=== PATIENT | female | born 1955 | race Caucasian/White ===

== ENCOUNTER 2017-08-15 19:41 | Inpatient (IN) | payer OTHER ==
[~2017-08-15] VITALS: Ht 180.3 cm; Wt 72.6 kg
[2017-08-15 20:12] VITALS: BP 161/100; PULSE 94; RESP 16; TEMP 98; O2SAT 97
[2017-08-15 22:04] LABS: AUTOMATED NEUTROPHIL # 5.9 TH/MM3 (1.8-7.7); BASOPHIL % 0.4 % (0.0-2.0); EOSINOPHIL # 0.2 TH/MM3 (0-0.4); EOSINOPHIL % 2.1 % (0.0-4.0); HEMATOCRIT 41.8 % (35.0-46.0); HEMOGLOBIN 14.1 GM/DL (11.6-15.3); LYMPH % 35.1 % (9.0-44.0); LYMPHOCYTE # 3.8 TH/MM3 (1.0-4.8); MEAN CELL VOLUME 87.6 FL (80.0-100.0); MEAN CORPUSCULAR HEMOGLOBIN 29.6 PG (27.0-34.0); MEAN CORPUSCULAR HGB CONC 33.8 % (32.0-36.0); MEAN PLATELET VOLUME 7.2 FL (7.0-11.0); MONO % 8.1 % (0.0-8.0); MONOCYTE # 0.9 TH/MM3 (0-0.9); NEUT % 54.3 % (16.0-70.0); PLATELET COUNT 302 TH/MM3 (150-450); RED BLOOD COUNT 4.77 MIL/MM3 (4.00-5.30); RED CELL DISTRIBUTION WIDTH 13.7 % (11.6-17.2); WHITE BLOOD COUNT 10.8 TH/MM3 (4.0-11.0)
[2017-08-15] MEDS ORDERED: IRBE300T46 PO (22:13)
[2017-08-15] MEDS ORDERED: VITA2000 PO (22:13)
[2017-08-15] MEDS ORDERED: ALPR.25 PO (22:13)
[2017-08-15] MEDS ORDERED: CARV12.5 PO (22:13)
[2017-08-15] MEDS ORDERED: LIPI20TA PO (22:13)
[2017-08-15] MEDS ORDERED: PRIL20TA2 PO (22:13)
[2017-08-15] MEDS ORDERED: ESTR1.25 PO (22:13)
--- NOTE | 2017-08-15 22:15 | RADRPT ---
EXAM DATE: 08/15/2017 9:53 PM EDT AGE/SEX: 62 years / Female INDICATIONS: Light sensitivity. CLINICAL DATA: This is the patient's initial encounter. Patient reports that signs and symptoms have been present for 1 day and indicates a pain score of 5/10. MEDICAL/SURGICAL HISTORY: Hypertension. . RADIATION DOSE: 37.63 CTDI (mGy) COMPARISON: No prior exams available for comparison. TECHNIQUE: CT of the head without contrast. Using automated exposure control and adjustment of the mA and/or kV according to patient size, radiation dose was kept as low as reasonably achievable to ob tain optimal diagnostic quality images. FINDINGS: Cerebrum: The ventricles are normal for age. No evidence of midline shift, mass lesion, hemorrhage or acute infarction. No extraaxial fluid collections are seen. Posterior Fossa: The cerebellum and brainstem are intact. The 4th ventricle is midline. The cerebe llopontine angle is unremarkable. Extracranial: The visualized portion of the orbits is intact. Skull: The calvaria is intact. No evidence of skull fracture. CONCLUSION: 1. No acute intracranial abnormalities. Electronically signed by: Joseluis Rivera MD 08/15/2017 10:14 PM EDT
[2017-08-15 22:18] LABS: PROTHROMBIN TIME - PATIENT 10.4 SEC (9.8-11.6)
[2017-08-15 22:21] VITALS: BP 131/82; PULSE 87; RESP 20; O2SAT 98
--- NOTE | 2017-08-15 22:21 | PD ---
HPI Chief Complaint: Neuro Symptoms/ Deficits Time Seen by Provider: 21:21 Travel History International Travel<30 days: No Contact w/Intl Traveler<30days: No Traveled to known affect area: No History of Present Illness HPI 62-year-old female presents the emergency department with vision loss. She states her symptoms began 2 weeks ago as flashes and floaters she made an appointment with her eye doctor and was seen today. He is concerned that she may have had a stroke because she has a unilateral visual field cut on the left and could not see anything lateral of the midline. Patient has no history of hypertension atrial fibrillation or any other risk factors for stroke. No prior episodes PFSH Past Medical History Diminished Hearing: No Hypertension: Yes Medical other: Yes (GALLSTONES ) ?: Not Past Surgical History Cholecystectomy: Yes Hysterectomy: Yes Other Surgery: Yes (BREAST INPLANTS ) Social History Alcohol Use: No Tobacco Use: Yes Substance Use: No Allergies-Medications (Allergen,Severity, Reaction): Coded Allergies: No Known Allergies (Verified Allergy, Severe, 08/26/05) Reported Meds & Prescriptions Reported Meds & Active Scripts Active Review of Systems Except as stated in HPI: all other systems reviewed are Neg General / Constitutional: No: Fever, Chills Eyes: Positive: Blind Spots, Visual changes HENT: No: Headaches, Vertigo, Lightheadedness Cardiovascular: No: Chest Pain or Discomfort Respiratory: No: Cough, Shortness of Breath Gastrointestinal: No: Nausea, Vomiting, Diarrhea, Abdominal Pain Musculoskeletal: No: Myalgias, Arthralgias Neurologic: No: Weakness, Dizziness, Syncope, Tremor, Ataxia, Headache, Change in Mentation, Slurred Speech, Paresthesia, Seizures Psychiatric: No: Anxiety, Depression Physical Exam Narrative GENERAL: 62-year-old female in no distress SKIN: Focused skin assessment warm/dry. HEAD: Atraumatic. Normocephalic. EYES: Patient was dilated at ophtholmology earlier today - normal funduscopic exam, visual loss in left eye - no peripheral vision, no vision lateral of midline. ENT: No nasal bleeding or discharge. Mucous membranes pink and moist. NECK: Trachea midline. No JVD. CARDIOVASCULAR: Regular rate and rhythm. No murmur appreciated. RESPIRATORY: No accessory muscle use. Clear to auscultation. Breath sounds equal bilaterally. GASTROINTESTINAL: Abdomen soft, non-tender, nondistended. Hepatic and splenic margins not palpable. MUSCULOSKELETAL: No obvious deformities. No clubbing. No cyanosis. No edema. NEUROLOGICAL: Awake and alert. No obvious cranial nerve deficits. Motor normal , sensation normal. Normal speech. Data Data Last Documented VS Vital Signs Date Time Temp Pulse Resp B/P (MAP) Pulse Ox O2 Delivery O2 Flow Rate FiO2 08/15/17 20:12 98.0 94 16 161/100 (120) [address] Brain W/O Iv Contrast(Rout) (08/15/17 ) Complete Blood Count With Diff (08/15/17 21:30) Comprehensive Metabolic Panel (08/15/17 21:30) Act Partial Throm Time (Ptt) (08/15/17 21:30) Prothrombin Time / Inr (Pt) (08/15/17 21:30) Chest, Single Ap (08/15/17 ) Urinalysis - C+S If Indicated (08/15/17 21:30) Electrocardiogram (08/15/17 ) Labs Laboratory Tests Test 08/15/17 21:45 White Blood Count 10.8 TH/MM3 Red Blood Count 4.77 MIL/MM3 Hemoglobin 14.1 GM/DL Hematocrit 41.8 % Mean Corpuscular Volume 87.6 FL Mean Corpuscular Hemoglobin 29.6 PG Mean Corpuscular Hemoglobin Concent 33.8 % Red Cell Distribution Width 13.7 % Platelet Count 302 TH/MM3 Mean Platelet Volume 7.2 FL Neutrophils (%) (Auto) 54.3 % Lymphocytes (%) (Auto) 35.1 % Monocytes (%) (Auto) 8.1 % Eosinophils (%) (Auto) 2.1 % Basophils (%) (Auto) 0.4 % Neutrophils # (Auto) 5.9 TH/MM3 Lymphocytes # (Auto) 3.8 TH/MM3 Monocytes # (Auto) 0.9 TH/MM3 Eosinophils # (Auto) 0.2 TH/MM3 Basophils # (Auto) 0.0 TH/MM3 CBC Comment DIFF FINAL Differential Comment MDM Medical Decision Making Medical Screen Exam Complete: Yes Emergency Medical Condition: Yes Differential Diagnosis CVA, MS Narrative Course patient seen an evaluated in the ER - she was admitted for further observation and treatment Shonda Haley DO Aug 15, 2017 22:21
--- NOTE | 2017-08-15 22:22 | RADRPT ---
EXAM DATE: 08/15/2017 10:08 PM EDT AGE/SEX: 62 years / Female INDICATIONS: Stroke alert. CLINICAL DATA: This is the patient's initial encounter. Patient reports that signs and symptoms have been present for 1 day and indicates a pain score of 0/10. MEDICAL/SURGICAL HISTORY: None. None. COMPARISON: No prior exams available for comparison. FINDINGS: A single AP view of the chest demonstrates the lungs to be symmetrically aerated without evidence of mass, infiltrate or effusion. Minimal linear scarring or atelectasis left base The cardiomediastinal contours are unremarkable. Osseous structures are intact. CONCLUSION: Minimal linear scarring or atelectasis left base. Otherwise no acute findings. Electronically signed by: Joseluis Rivera MD 08/15/2017 10:21 PM EDT
[2017-08-15 22:33] LABS: ALBUMIN 3.7 GM/DL (3.4-5.0); AST (GOT) 24 U/L (15-37); BICARBONATE 22.2 MEQ/L (21.0-32.0); BLOOD UREA NITROGEN 18 MG/DL (7-18); CALCIUM 9.2 MG/DL (8.5-10.1); CHLORIDE 106 MEQ/L (98-107); GLOMERULAR FILTRATION RATE 102 ML/MIN (>89); GLUCOSE,RANDOM 110 MG/DL (74-106); SODIUM (NA) 142 MEQ/L (136-145)
[2017-08-15 22:35] LABS: ALT (GPT) 34 U/L (10-53)
[2017-08-15 22:37] LABS: ALKALINE PHOSPHATASE 55 U/L (45-117); TOTAL BILIRUBIN ADULT 0.3 MG/DL (0.2-1.0)
[2017-08-15] MEDS ORDERED: ENALAPRILAT 1.25 MG/ML VIAL IV PUSH PRN (23:45)
[2017-08-15] MEDS ORDERED: SODIUM CHLORIDE 0.9% FLUSH 10 ML FLUSH IV FLUSH PRN (23:45)
[2017-08-15] MEDS ORDERED: GLUCAGON 1 MG/ML VIAL OTHER PRN (23:45)
[2017-08-15] MEDS ORDERED: DEXTROSE 50% IN WATER 50 ML VIAL(D50) IV PUSH PRN (23:45)
--- NOTE | 2017-08-15 23:48 | HHI.HP ---
[facility] Service [place] [facility] Primary Care Physician Tonya Howard M.D. Admission Diagnosis Diagnoses: (1) Vision loss Diagnosis: Principal (2) HTN (hypertension) Diagnosis: Principal (3) Hypokalemia Diagnosis: Principal Travel History International Travel<30 Days: No Contact w/Intl Traveler <30 Da: No Traveled to Known Affected Are: No History of Present Illness This is a 70-year-old female with a PMH of HTN, Cholelithiasis and Tobacco Abuse who was referred to the ER by her Product Development Consultant for vision loss and concern for stroke. Pt states she works at [email or web address] and has had significant photophobia while at work for approx 1wk w/ intermittent floaters. Was seen by Product Development Consultant on Friday (4 days ago) w/ normal funduscopic exam. On Friday, states she noticed "blind spots", states she could see people when looking up, however when she looked down, she saw children she couldn't see when looking up. Was referred to a retinal specialist by her Product Development Consultant, now w/ peripheral field vision loss bilaterally and referred to ER for possible CVA. Denies previous h/o similar symptoms. Takes ASA 81mg qd in addition to Lipitor. On arrival, BP 161/100, HR 94, O2 sat 97% on RA, Afebrile. CBC unremarkable. Chemistry unremarkable except for K+ 3.0. INR 1.0. UA negative. CXR with no acute findings. CT Head negative. Review of Systems Except as stated in HPI: all other systems reviewed are Neg ROS: 14 point review of systems otherwise negative. Past Family Social History Past Medical History PMH: HTN, Cholelithiasis and Tobacco Abuse Past Surgical History PAST SURGICAL HISTORY: Breast Augmentation, Hysterectomy, Cholecystectomy Allergies: Coded Allergies: No Known Allergies (Verified Allergy, Severe, 08/26/05) Family History PAST FAMILY HISTORY: Reviewed. No h/o DM or CAD Social History PAST SOCIAL HISTORY: Negative for alcohol or drugs. Positive for tobacco. Physical Exam Vital Signs Vital Signs Date Time Temp Pulse Resp B/P (MAP) Pulse Ox O2 Delivery O2 Flow Rate FiO2 08/15/17 22:21 87 20 131/82 (98) 98 Room Air 08/15/17 20:12 98.0 94 16 161/100 (120) 97 Physical Exam PE: GENERAL: Very pleasant middle-aged white female in no acute distress. Sister at bedside per HEENT: PERRLA, EOMI, dilated. Bilateral peripheral vision deficit, right worse than left. No scleral icterus or conjunctival pallor. No lid lag or facial droop. CARDIOVASCULAR: Regular rate and rhythm. No obvious murmurs to auscultation. No chest tenderness to palpation. RESPIRATORY: No obvious rhonchi or wheezing. Clear to auscultation. Breath sounds equal bilaterally. GASTROINTESTINAL: Abdomen soft, non-tender, nondistended. BS normal. MUSCULOSKELETAL: Extremities without clubbing, cyanosis, or edema. No obvious deformities. NEUROLOGICAL: Awake, alert and oriented x4. No focal neurologic deficits. Moving both upper and lower extremities spontaneously. Laboratory Laboratory Tests Test 08/15/17 21:45 08/15/17 23:25 White Blood Count 10.8 Red Blood Count 4.77 Hemoglobin 14.1 Hematocrit 41.8 Mean Corpuscular Volume 87.6 Mean Corpuscular Hemoglobin 29.6 Mean Corpuscular Hemoglobin Concent 33.8 Red Cell Distribution Width 13.7 Platelet Count 302 Mean Platelet Volume 7.2 Neutrophils (%) (Auto) 54.3 Lymphocytes (%) (Auto) 35.1 Monocytes (%) (Auto) 8.1 Eosinophils (%) (Auto) 2.1 Basophils (%) (Auto) 0.4 Neutrophils # (Auto) 5.9 Lymphocytes # (Auto) 3.8 Monocytes # (Auto) 0.9 Eosinophils # (Auto) 0.2 Basophils # (Auto) 0.0 CBC Comment DIFF FINAL Differential Comment Prothrombin Time 10.4 Prothromb Time International Ratio 1.0 Activated Partial Thromboplast Time 26.4 Blood Urea Nitrogen 18 Creatinine 0.60 Random Glucose 110 Total Protein 7.0 Albumin 3.7 Calcium Level 9.2 Alkaline Phosphatase 55 Aspartate Amino Transf (AST/SGOT) 24 Alanine Aminotransferase (ALT/SGPT) 34 Total Bilirubin 0.3 Sodium Level 142 Potassium Level 3.0 Chloride Level 106 Carbon Dioxide Level 22.2 Anion Gap 14 Estimat Glomerular Filtration Rate 102 Result Diagram: 08/15/17214408/15/172144 Caprini VTE Risk Assessment Caprini VTE Risk Assessment: No/Low Risk (score <= 1) Caprini Risk Assessment Model Point Value = 1 Point Value = 2 Point Value = 3 Point Value = 5 Age 41-60 Minor surgery BMI > 25 kg/m2 Swollen legs Varicose veins or History of unexplained or recurrent spontaneous Oral contraceptives or hormone replacement Sepsis (< 1 month) Serious lung disease, including pneumonia (< 1 month) Abnormal pulmonary function Acute myocardial infarction Congestive heart failure (< 1 month) History of inflammatory bowel disease Medical patient at bed rest Age 61-74 Arthroscopic surgery Major open surgery (> 45 min) Laparoscopic surgery (> 45 min) Malignancy Confined to bed (> 72 hours) Immobilizing plaster cast Central venous access Age >= 75 History of VTE Family history of VTE Factor V Leiden Prothrombin [id number] Lupus anticoagulant Anticardiolipin antibodies Elevated serum homocysteine Heparin-induced thrombocytopenia Other congenital or acquired thrombophilia Stroke (< 1 month) Elective arthroplasty Hip, pelvis, or leg fracture Acute spinal cord injury (< 1 month) Prophylaxis Regimen Total Risk Factor Score Risk Level Prophylaxis Regimen 0-1 Low Early ambulation 2 Moderate Order ONE of the following: *Sequential Compression Device (SCD) *Heparin 5000 units SQ BID 3-4 Higher Order ONE of the following medications: *Heparin 5000 units SQ TID *Enoxaparin/Lovenox 40 mg SQ daily (WT < 150 kg, CrCl > 30 mL/min) *Enoxaparin/Lovenox 30 mg SQ daily (WT < 150 kg, CrCl > 10-29 mL/min) *Enoxaparin/Lovenox 30 mg SQ BID (WT < 150 kg, CrCl > 30 mL/min) AND/OR *Sequential Compression Device (SCD) 5 or more Highest Order ONE of the following medications: *Heparin 5000 units SQ TID (Preferred with Epidurals) *Enoxaparin/Lovenox 40 mg SQ daily (WT < 150 kg, CrCl > 30 mL/min) *Enoxaparin/Lovenox 30 mg SQ daily (WT < 150 kg, CrCl > 10-29 mL/min) *Enoxaparin/Lovenox 30 mg SQ BID (WT < 150 kg, CrCl > 30 mL/min) AND *Sequential Compression Device (SCD) Assessment and Plan Problem List: (1) Vision loss ICD Code: H54.7 - Unspecified visual loss (2) Hypokalemia ICD Code: E87.6 - Hypokalemia (3) HTN (hypertension) ICD Code: I10 - Essential (primary) hypertension Assessment and Plan A/P: 1. Vision Loss: progressive peripheral field vision loss, s/p eval by Ophthalmology and Retinal Specialist w/ normal funduscopic exam, +abnormal peripheral field testing concerning for CVA. No h/o CVA. CT Head w/ no acute findings, images reviewed by me. Check MRI/MRA, Neuro Checks, Check Lipid Profile, Hgb A1c, ASA 325, resume Statin. Check Echo to eval for embolic event. Consult Neuro for further recommendations. 2. HTN: Uncontrolled. BP 160's, will allow for permissive HTN in light of possible CVA. Antihypertensives as needed for BP >220 3. Hypokalemia: K+ 3.0, will replace and recheck in am. Telemetry. 4. DVT Prophylaxis: SCD/Teds 5. Social work for d/c planning as needed. 6. Case discussed w/ ER physician at length, labs/records/imaging reviewed by me. Physician Certification 2 Midnight Certification Type: Admission for Inpatient Services Order for Inpatient Services The services are ordered in accordance with Medicare regulations or non- Medicare payer requirements, as applicable. In the case of services not specified as inpatient-only, they are appropriately provided as inpatient services in accordance with the 2-midnight benchmark. Estimated LOS (days): 2 days is the estimated time the patient will need to remain in the hospital, assuming treatment plan goals are met and no additional complications. Post-Hospital Plan: Not yet determined Dania Womack MD Aug 15, 2017 23:48
[2017-08-15 23:54] LABS: BACTERIA, URINE RARE /hpf; BILIRUBIN, URINE NEG (NEG); BLOOD, URINE NEG (NEG); GLUCOSE,URINE NEG (NEG); KETONE, URINE NEG (NEG); MUCUS URINE FEW /lpf (OCC); NITRITE,URINE NEG (NEG); SQUAMOUS EPITHELIAL CELL URINE 2 /hpf (0-5); URINE COLOR YELLOW (YELLW/STRAW); URINE LEUKOCYTE ESTERASE NEG (NEG)
[2017-08-16] VITALS (19 sets, daily range): BP systolic 109–142; BP diastolic 72–89; PULSE 67–102; RESP 16–20; TEMP 97.6–98; O2SAT 96–97
[2017-08-16] MEDS ORDERED: SENNOSIDES 8.6 MG TAB PO PRN (00:15)
[2017-08-16] MEDS ORDERED: MORPHINE SULFATE 2 MG/ML SYRINGE IV PUSH PRN (00:15)
[2017-08-16] MEDS ORDERED: MAGNESIUM HYDROXIDE SUSP 30 ML CUP PO PRN (00:15)
[2017-08-16] MEDS ORDERED: LACTULOSE SYRUP 20 GM/30 ML CUP PO PRN (00:15)
[2017-08-16] MEDS ORDERED: BISACODYL 10 MG SUPP RECTAL PRN (00:15)
[2017-08-16] MEDS: SODIUM CHLOR 0.9% 1000 ML INJ 1,000 ML IV SCH ×2 (00:25→16:54)
[2017-08-16] MEDS ORDERED: POTASSIUM CHLORIDE 20 MEQ CONTROLLED RELEASE TAB PO ONE (00:30)
[2017-08-16] MEDS: ATORVASTATIN 20 MG TAB PO SCH ×2 (02:55→20:52)
[2017-08-16 04:49] LABS: CHOLESTEROL 151 MG/DL (120-200); TRIGLYCERIDES 332 MG/DL (42-150)
[2017-08-16 04:52] LABS: HDL CHOLESTEROL 38.7 MG/DL (40.0-60.0); LDL CHOLESTEROL 46 MG/DL (0-99)
[2017-08-16] MEDS: INSULIN ASPART SUPPLEMENTAL SCALE SQ SCH ×4 (08:00→20:52)
[2017-08-16] MEDS: DOCUSATE SODIUM 50 MG/SENNA 8.6 MG TAB PO SCH ×2 (08:29→20:52)
[2017-08-16] MEDS ORDERED: ASPIRIN 81 MG CHEW TAB PO SCH (09:00)
[2017-08-16] MEDS ORDERED: ASPIRIN EC 325 MG TABEC PO SCH (09:00)
--- NOTE | 2017-08-16 10:22 | PD.CONS ---
History of Present Illness Service Neurology Consult Requested By Medical Primary Care Physician Tonya Howard M.D. History of Present Illness 70-year-old female with a PMH of HTN, Cholelithiasis and Tobacco Abuse who was referred to the ER by her Head Golf Professional for vision loss and concern for stroke. She has been seeing floaters and reduced vision in her peripheral pacheco. States past few days she is seeing some blurriness in vision flashes of light white and red in the periphery. No significant history of migraine headache See the burn crew member who did formal visual field testing and found left homonymous hemianopsia and suspected patient having a stroke. Apparently normal funduscopic exam. She denies any headache trauma vertigo focal weakness or gait imbalance. Denies previous h/o similar symptoms. Takes ASA 81mg qd in addition to Lipitor. On arrival, BP 161/100. CT Head negative. Denies any history of hypercoagulable state, lupus or DVT or A. fib. No family history of stroke. States she smokes only when she is driving. Review of Systems Except as stated in HPI: all other systems reviewed are Neg Or as per admission H&P Past Family Social History Past Medical History PMH: HTN, Cholelithiasis and Tobacco Abuse Past Surgical History PAST SURGICAL HISTORY: Breast Augmentation, Hysterectomy, Cholecystectomy Allergies: Coded Allergies: No Known Allergies (Verified Allergy, Severe, 08/26/05) Family History PAST FAMILY HISTORY: Reviewed. No h/o DM or CAD Social History PAST SOCIAL HISTORY: Negative for alcohol or drugs. Positive for tobacco. Review of Systems All other ROS: ROS reviewed as documented in chart Past Family Social History Allergies: Coded Allergies: No Known Allergies (Verified Allergy, Severe, 08/26/05) Active Ordered Medications Current Medications Medications (Trade) Dose Ordered Sig/Madeleine Route Start Time Stop Time Status Last Admin (NS Flush) 2 ml BID IV FLUSH 08/16/17 09:00 (NS Flush) 2 ml UNSCH PRN IV FLUSH 08/15/17 23:45 Sodium Chloride 1,000 ml @ 70 mls/hr [id number] IV 08/15/17 23:44 08/16/17 00:25 (Vasotec Inj) 1.25 mg Q4H PRN IV PUSH 08/15/17 23:45 (NovoLOG SUPPLEMENTAL SCALE) 1 ACHS SQ 08/16/17 08:00 (D50w (Vial) Inj) 50 ml UNSCH PRN IV PUSH 08/15/17 23:45 (Glucagon Inj) 1 mg UNSCH PRN OTHER 08/15/17 23:45 (Xanax) 0.25 mg Q4H PRN PO 08/15/17 23:45 (Tylenol) 650 mg Q6H PRN PO 08/16/17 00:15 ([place] 5-325 Mg) 1 tab Q4H PRN PO 08/16/17 00:15 (Morphine Inj) 2 mg Q3H PRN IV PUSH 08/16/17 00:15 ([place]-Colace) 1 tab BID PO 08/16/17 09:00 08/16/17 08:29 (Milk Of Magnesia Liq) 30 ml Q12H PRN PO 08/16/17 00:15 (Senokot) 17.2 mg Q12H PRN PO 08/16/17 00:15 (Dulcolax Supp) 10 mg DAILY PRN RECTAL 08/16/17 00:15 (Lactulose Liq) 30 ml DAILY PRN PO 08/16/17 00:15 (Lipitor) 20 mg HS PO 08/16/17 00:30 08/16/17 02:55 (Ecotrin Ec) 325 mg DAILY PO 08/16/17 09:00 08/16/17 08:29 Social History Tobacco cessation discussed with patient Exam I&O / VS Vital Signs Date Time Temp Pulse Resp B/P (MAP) Pulse Ox O2 Delivery O2 Flow Rate FiO2 08/16/17 08:00 97.6 67 16 142/89 (106) 97 08/16/17 05:00 81 08/16/17 03:14 67 20 135/88 (104) 97 08/16/17 00:35 97.9 77 20 131/88 (102) 97 08/16/17 00:35 77 08/16/17 00:02 Room Air 08/15/17 22:21 87 20 131/82 (98) 98 Room Air 08/15/17 20:12 98.0 94 16 161/100 (120) 97 General: Alert and Oriented, No acute distress Eye: PERRL, EOMI Respiratory: Non-labored respirations, BS equal, Symmetrical expansion, No chest wall tenderness Cardiology: Normal rate, No edema Musculoskeletal: ROM Neurologic: Alert, Oriented, Normal sensory, Normal motor, Gag reflex normal, Normal DTR's Psychiatric: Cooperative, Appropriate mood & affect, Normal judgement, Non- suicidal Exam Comments Awake alert oriented 3, pleasant no aphasia follows motor request, articulate speech extraocular movements intact left curvilinear homonymous hemianopsia no facial asymmetry tongue midline strength 5 out of 5 her lower limbs no pronator drift no dysmetria appreciated no ankle edema Review/Management Diagnosis/Plan: (1) Vision loss ICD Codes: H54.7 - Unspecified visual loss Status: Acute Plan: Visual deficit suspect suspicious for right occipital ischemic infarct Risk factors include chronic hypertension, tobacco use Recommendations MRI/MRA/MRV brain Carotid imaging Echo ESR CRP lipids Add Plavix PT OT eval Blood pressure control Tobacco cessation Follow exam (2) HTN (hypertension) ICD Codes: I10 - Essential (primary) hypertension Status: Chronic Plan: Goal less than 120/80 On antihypertensives (3) Tobacco use ICD Codes: Z72.0 - Tobacco use Status: Chronic Plan: Cessation discussed with the patient Problem Qualifiers (1) HTN (hypertension): Qualified Codes: I10 - Essential (primary) hypertension Lebron Lemus MD Aug 16, 2017 10:22
[2017-08-16 11:27] LABS: C-REACTIVE PROTEIN 0.38 MG/DL (0.00-0.30)
--- NOTE | 2017-08-16 12:11 | HHI.PR ---
Subjective Remarks No new symptoms reported by the patient. She still continues to have bilateral peripheral vision loss. Headache is reported since yesterday. MRI is pending for today. Objective Vital Signs Date Time Temp Pulse Resp B/P (MAP) Pulse Ox O2 Delivery O2 Flow Rate FiO2 08/16/17 11:00 85 08/16/17 10:00 84 08/16/17 09:00 88 08/16/17 08:00 97.6 67 16 142/89 (106) 97 08/16/17 08:00 94 08/16/17 07:00 86 08/16/17 05:00 81 08/16/17 03:14 67 20 135/88 (104) 97 08/16/17 00:35 97.9 77 20 131/88 (102) 97 08/16/17 00:35 77 08/16/17 00:02 Room Air 08/15/17 22:21 87 20 131/82 (98) 98 Room Air 08/15/17 20:12 98.0 94 16 161/100 (120) 97 I/O 08/15/17 08/15/17 08/15/17 08/16/17 08/16/17 08/16/17 07:00 15:00 23:00 07:00 15:00 23:00 Intake Total 240 ml Balance 240 ml Intake Oral 240 ml Result Diagram: 08/15/17214408/15/172144 Objective Remarks GENERAL: NAD, A&Ox3 HEAD: Normocephalic. NECK: Supple, trachea midline. No lymphadenopathy. EYES: No scleral icterus. No injection or drainage. CARDIOVASCULAR: Regular rate and rhythm without murmurs, gallops, or rubs. RESPIRATORY: Breath sounds equal bilaterally. No accessory muscle use. GASTROINTESTINAL: Abdomen soft, non-tender, nondistended. MUSCULOSKELETAL: No cyanosis, or edema. SKIN: Warm and dry. NEURO: Bilateral loss of peripheral vision greater in the right eye. A/P Problem List: (1) HTN (hypertension) ICD Code: I10 - Essential (primary) hypertension Status: Chronic (2) Vision loss ICD Code: H54.7 - Unspecified visual loss Status: Acute (3) Hypokalemia ICD Code: E87.6 - Hypokalemia (4) Tobacco use ICD Code: Z72.0 - Tobacco use Status: Chronic Assessment and Plan 62-year-old female admitted secondary to peripheral vision loss Progressive peripheral vision loss Possible CVA MRI/MRA pending CT showed no evidence of etiology Continue aspirin Continue statin Neurology following Hypertension Permissive blood pressures for now Follow blood pressures Adjust treatments as needed Hypokalemia Monitor and replace as needed DVT prophylaxis SCDs Problem Qualifiers (1) HTN (hypertension): Qualified Codes: I10 - Essential (primary) hypertension Marcelo Watson MD Aug 16, 2017 12:11
--- NOTE | 2017-08-16 12:19 | RADRPT ---
EXAM DATE: 08/16/2017 11:59 AM EDT AGE/SEX: 62 years / Female INDICATIONS: Hallucinations. CLINICAL DATA: This is the patient's initial encounter. Patient reports that signs and symptoms have been present for 1 day and indicates a pain score of 0/10. MEDICAL/SURGICAL HISTORY: Hypertension. Cholecystectomy. Hysterectomy. COMPARISON: [facility] [place], CT BRAIN W/O CONTRAST, 08/15/2017. . TECHNIQUE: Multiplanar, multisequence examination of the brain was performed without contrast. FINDINGS: Cerebrum: Ventricles are normal. There is abnormal edema within the anterior right temporal lobe and mesial temporal lobe on the right. Additionally, there is focal abnormal increased FLAIR signal in th e right thalamus and mild cortical/subcortical increased FLAIR signal in the left parietal region. No midline shift, mass lesion, hemorrhage or acute infarction. No extraaxial fluid collections are see n. The pituitary gland and suprasellar cistern are normal in configuration. White Matter: There are mild scattered areas of periventricular and subcortical white matter signal change bilaterally. Posterior Fossa: There is abnormal increased FLAIR signal in the left roslyn. The 4th ventricle is mid line. The cerebellopontine angle is unremarkable. The cerebellar tonsils are normal in position. Diffusion Imaging: No focal areas of restricted diffusion are seen. No evidence of acute infarction . Extracranial: The visualized portions of the orbits and paranasal sinuses are unremarkable. CONCLUSION: 1. Multifocal areas of abnormal edema which do not demonstrate features to indicate recent ischemia. The abnormal areas include the anterior right temporal lobe, right thalamus, left parietal region, a nd left roslyn. Etiology is uncertain. Encephalitis from uncertain etiology should be a consideration. In general, consider infectious or inflammatory conditions. 2. There are a few scattered periventricular and subcortical areas of white matter signal change mos t likely representing chronic microvascular ischemia in these areas. Electronically signed by: Domenico Mario MD 08/16/2017 12:17 PM EDT
--- NOTE | 2017-08-16 12:25 | RADRPT ---
EXAM DATE: 08/16/2017 11:58 AM EDT AGE/SEX: 62 years / Female INDICATIONS: Hallucinations. Loss of peripheral vision. Light flashes. CLINICAL DATA: This is the patient's initial encounter. Patient reports that signs and symptoms have been present for 1 day and indicates a pain score of 0/10. MEDICAL/SURGICAL HISTORY: Hypertension. Cholecystectomy. Hysterectomy. COMPARISON: No prior exams available for comparison. TECHNIQUE: 3D [id number] MRA was performed. Source images, multiplanar STS MIP, and 3D volum e MIP reconstructions were reviewed. FINDINGS: There is excellent visualization of the major intracranial arteries out to the second-order branch ve ssels. There is no evidence for aneurysm, vessel truncation or stenosis, and no evidence for vascula r malformation. There is a persistent circulation on the right. Vertebral arteries are codomina nt. CONCLUSION: No intracranial arterial vascular abnormality is identified. Electronically signed by: Domenico Mario MD 08/16/2017 12:24 PM EDT
--- NOTE | 2017-08-16 12:42 | EKG ---
Date Performed: 08/15/2017 Time Performed: 22:21:07 PTAGE: 62 years EKG: Sinus rhythm INFERIOR MYOCARDIAL INFARCTION ABNORMAL ECG PREVIOUS TRACING : 08/23/2005 10.32 Small R-waves have replaced Q-waves in V1 and V2; however, new Q-waves are present in I, III, aVF. This can represent lead placement change, but cannot rule out inferior infarct. DOCTOR: Warren Bang Interpretating Date/Time 08/16/2017 12:42:12
[2017-08-16] MEDS: SODIUM CHLORIDE 0.9% FLUSH 10 ML FLUSH IV FLUSH SCH ×2 (12:51→20:52)
[2017-08-16] MEDS: ACETAMINOPHEN 325 MG TAB PO PRN (12:51)
[2017-08-16 15:18] LABS: HEMOGLOBIN A1C 5.4 % (4.3-6.0)
[2017-08-16] MEDS ORDERED: methylPREDNISolone SOD SUCC 125 MG/2 ML VIAL IV PUSH ONE (15:45)
[2017-08-16] MEDS ORDERED: GADODIAMIDE PF 287 MG/ML 20 ML VIAL (for RAD MRI) IVCONTRAST ONE (16:39)
[2017-08-16] MEDS: ACYCLOVIR INJ 700 MG in SODIUM CHLORIDE 0.9% INJ 100 ML IV SCH ×2 (16:55→23:36)
[2017-08-16] MEDS: LACTOBACILLUS ACIDOPHILUS TAB PO SCH (16:58)
--- NOTE | 2017-08-16 18:19 | RADRPT ---
EXAM DATE: 08/16/2017 4:51 PM EDT AGE/SEX: 62 years / Female INDICATIONS: Multiple sclerosis. CLINICAL DATA: This is the patient's initial encounter. Patient reports that signs and symptoms have been present for 1 day and indicates a pain score of 0/10. MEDICAL/SURGICAL HISTORY: Hypertension. Hysterectomy. Cholecystectomy. COMPARISON: No prior exams available for comparison. TECHNIQUE: Multiplanar, multisequence MRI examination of the cervical spine was performed without an d with 15 ml Omniscan (gadodiamide) contrast as a single exam dose. FINDINGS: No cord signal abnormalities are seen to suggest multiple sclerosis. No abnormal enhancing lesions wi thin the canal postcontrast. At C2-3-4 there is no significant abnormality. At C4-5 there is some posterior osteophytic ridging effacing the anterior thecal sac without cord imp ingement. At C5-6-7 there is posterior osteophytic ridging resulting in slight deflection of the cord posterior ly and mild impression on the anterior surface of the cord. At C7-T1 there is no significant mammography. CONCLUSION: 1. No cord signal abnormalities to suggest multiple sclerosis. 2. Degenerative disc disease most severe at C5-6-7 where there is mild impression on the anterior moncada rface of the cord. Slight reversal of normal cervical lordosis. Electronically signed by: Joseluis Rivera MD 08/16/2017 6:18 PM EDT
[2017-08-16] MEDS: cefTRIAXone INJ 2,000 MG in SODIUM CHLORIDE 0.9% INJ 100 ML IV SCH (18:38)
[2017-08-16] MEDS ORDERED: ATORVASTATIN 20 MG TAB PO SCH (21:00)
[2017-08-16] MEDS: methylPREDNISolone SOD SUCC 40 MG/1 ML VIAL IV PUSH SCH (23:36)
[2017-08-17] VITALS (9 sets, daily range): BP systolic 95–158; BP diastolic 58–87; PULSE 82–105; RESP 16–20; TEMP 97.4–98.5; O2SAT 92–98
[2017-08-17 04:10] LABS: AUTOMATED NEUTROPHIL # 7.1 TH/MM3 (1.8-7.7); BASOPHIL % 0.3 % (0.0-2.0); HEMOGLOBIN 13.2 GM/DL (11.6-15.3); LYMPH % 15.3 % (9.0-44.0); LYMPHOCYTE # 1.3 TH/MM3 (1.0-4.8); MEAN CELL VOLUME 88.6 FL (80.0-100.0); MEAN CORPUSCULAR HEMOGLOBIN 30.1 PG (27.0-34.0); MEAN CORPUSCULAR HGB CONC 33.9 % (32.0-36.0); MEAN PLATELET VOLUME 7.3 FL (7.0-11.0); MONO % 0.9 % (0.0-8.0); MONOCYTE # 0.1 TH/MM3 (0-0.9); NEUT % 83.5 % (16.0-70.0); PLATELET COUNT 297 TH/MM3 (150-450); RED CELL DISTRIBUTION WIDTH 13.1 % (11.6-17.2); WHITE BLOOD COUNT 8.5 TH/MM3 (4.0-11.0)
[2017-08-17] MEDS: SODIUM CHLOR 0.9% 1000 ML INJ 1,000 ML IV SCH ×2 (04:20→08:47)
[2017-08-17] MEDS: ACETAMINOPHEN 325 MG TAB PO PRN (04:24)
[2017-08-17 05:21] LABS: ALBUMIN 3.4 GM/DL (3.4-5.0); ALKALINE PHOSPHATASE 51 U/L (45-117); ALT (GPT) 45 U/L (10-53); AST (GOT) 30 U/L (15-37); BICARBONATE 19.2 MEQ/L (21.0-32.0); BLOOD UREA NITROGEN 12 MG/DL (7-18); C-REACTIVE PROTEIN 0.43 MG/DL (0.00-0.30); CALCIUM 8.7 MG/DL (8.5-10.1); CHLORIDE 114 MEQ/L (98-107); CREATININE 0.69 MG/DL (0.50-1.00); GLOMERULAR FILTRATION RATE 87 ML/MIN (>89); GLUCOSE,RANDOM 129 MG/DL (74-106); SODIUM (NA) 144 MEQ/L (136-145); TOTAL BILIRUBIN ADULT 0.2 MG/DL (0.2-1.0); TOTAL PROTEIN 6.8 GM/DL (6.4-8.2)
[2017-08-17 05:26] LABS: RHEUMATOID FACTOR SCREEN NEGATIVE (NEGATIVE)
[2017-08-17] MEDS: cefTRIAXone INJ 2,000 MG in SODIUM CHLORIDE 0.9% INJ 100 ML IV SCH ×2 (06:19→18:00)
[2017-08-17] MEDS: methylPREDNISolone SOD SUCC 40 MG/1 ML VIAL IV PUSH SCH (06:19)
[2017-08-17] MEDS: ACETAMINOPHEN/HYDROcodone 325 MG/5 MG TAB PO PRN ×4 (06:27→21:39)
[2017-08-17] MEDS: INSULIN ASPART SUPPLEMENTAL SCALE SQ SCH ×4 (08:13→21:40)
[2017-08-17] MEDS: LACTOBACILLUS ACIDOPHILUS TAB PO SCH ×3 (08:13→17:31)
[2017-08-17] MEDS: SODIUM CHLORIDE 0.9% FLUSH 10 ML FLUSH IV FLUSH SCH ×2 (08:14→21:00)
[2017-08-17] MEDS: DOCUSATE SODIUM 50 MG/SENNA 8.6 MG TAB PO SCH ×2 (08:14→21:35)
[2017-08-17] MEDS: ACYCLOVIR INJ 700 MG in SODIUM CHLORIDE 0.9% INJ 100 ML IV SCH ×2 (08:47→18:00)
--- NOTE | 2017-08-17 10:26 | HHI.PR ---
Review/Management Diagnosis/Plan: (1) Vision loss ICD Codes: H54.7 - Unspecified visual loss Status: Acute Plan: MRI brain scan reviewed No evidence of acute stroke however multiple areas of white matter changes so appear to be small vessel disease other may be demyelinating lesions versus encephalitis although is afebrile and lacks constitutional symptoms Risk factors include chronic hypertension, tobacco use Recommendations CSF studies Trial of IV steroids Check HIV, RPR, Lyme antibodies, anti-NMO antibodies We will also obtain MRI of the C and T-spine to look for any paraclinical disease PT OT eval Blood pressure control Tobacco cessation Follow exam Discussed with patient. Told her she might be here until Friday of this week (2) HTN (hypertension) ICD Codes: I10 - Essential (primary) hypertension Status: Chronic Plan: Goal less than 120/80 On antihypertensives (3) Tobacco use ICD Codes: Z72.0 - Tobacco use Status: Chronic Plan: Cessation discussed with the patient Subjective Subjective Comments No acute events reported No headache No chest pain No dyspnea Active Medications Current Medications Medications (Trade) Dose Ordered Sig/Madeleine Route Start Time Stop Time Status Last Admin (NS Flush) 2 ml BID IV FLUSH 08/16/17 09:00 08/16/17 12:51 (NS Flush) 2 ml UNSCH PRN IV FLUSH 08/15/17 23:45 Sodium Chloride 1,000 ml @ 70 mls/hr [id number] IV 08/15/17 23:44 08/17/17 08:47 (Vasotec Inj) 1.25 mg Q4H PRN IV PUSH 08/15/17 23:45 (NovoLOG SUPPLEMENTAL SCALE) 1 ACHS SQ 08/16/17 08:00 08/17/17 08:13 (D50w (Vial) Inj) 50 ml UNSCH PRN IV PUSH 08/15/17 23:45 (Glucagon Inj) 1 mg UNSCH PRN OTHER 08/15/17 23:45 (Xanax) 0.25 mg Q4H PRN PO 08/15/17 23:45 (Tylenol) 650 mg Q6H PRN PO 08/16/17 00:15 08/17/17 04:24 (Donald 5-325 Mg) 1 tab Q4H PRN PO 08/16/17 00:15 08/17/17 06:27 (Morphine Inj) 2 mg Q3H PRN IV PUSH 08/16/17 00:15 (Marychuy-Colace) 1 tab BID PO 08/16/17 09:00 08/16/17 20:52 (Milk Of Magnesia Liq) 30 ml Q12H PRN PO 08/16/17 00:15 (Senokot) 17.2 mg Q12H PRN PO 08/16/17 00:15 (Dulcolax Supp) 10 mg DAILY PRN RECTAL 08/16/17 00:15 (Lactulose Liq) 30 ml DAILY PRN PO 08/16/17 00:15 (Lipitor) 20 mg HS PO 08/16/17 00:30 08/16/17 20:52 Ceftriaxone Sodium 2000 mg/ Sodium Chloride 100 ml @ 200 mls/hr Q12H IV 08/16/17 18:00 08/17/17 06:19 Acyclovir Sodium 700 mg/Sodium Chloride 100 ml @ 100 mls/hr Q8H IV 08/16/17 17:00 08/17/17 08:47 (SoluMEDROL INJ) 40 mg Q6HR IV PUSH 08/17/17 00:00 08/17/17 06:19 (Lactinex) 1 tab TID PO 08/16/17 18:00 08/17/17 08:13 Allergies Allergies Coded Allergies No Known Allergies (Verified Allergy, Severe, 08/26/05) Review of Systems All other ROS: ROS reviewed as documented in chart Exam I&O / VS Vital Signs Date Time Temp Pulse Resp B/P (MAP) Pulse Ox O2 Delivery O2 Flow Rate FiO2 08/17/17 04:00 97.4 82 20 120/74 (89) 96 08/17/17 00:00 98.5 96 16 95/58 (70) 95 08/17/17 00:00 94 08/16/17 23:00 92 08/16/17 22:00 92 08/16/17 21:00 102 08/16/17 20:00 85 08/16/17 20:00 97.9 94 16 119/76 (90) 97 08/16/17 19:00 86 08/16/17 18:00 82 08/16/17 16:00 97.7 89 16 109/72 (84) 96 08/16/17 15:00 83 08/16/17 14:00 86 08/16/17 14:00 18 08/16/17 13:00 86 08/16/17 12:00 98.0 78 16 119/89 (99) 96 08/16/17 12:00 83 08/16/17 11:00 85 General: Alert and Oriented, No acute distress Eye: PERRL, EOMI Respiratory: Non-labored respirations, BS equal, Symmetrical expansion, No chest wall tenderness Cardiology: Normal rate, No edema Musculoskeletal: ROM Neurologic: Alert, Oriented, Normal sensory, Normal motor Psychiatric: Cooperative, Appropriate mood & affect, Normal judgement, Non- suicidal Exam Comments Awake alert oriented 3, pleasant no aphasia follows motor request, articulate speech extraocular movements intact left curvilinear homonymous hemianopsia no facial asymmetry tongue midline strength 5 out of 5 her lower limbs no pronator drift no dysmetria mild lower extremity hyperreflexia, no clonus plantarflex response Objective Micro and Labs Laboratory Tests Test 08/17/17 03:49 White Blood Count 8.5 Red Blood Count 4.40 Hemoglobin 13.2 Hematocrit 39.0 Mean Corpuscular Volume 88.6 Mean Corpuscular Hemoglobin 30.1 Mean Corpuscular Hemoglobin Concent 33.9 Red Cell Distribution Width 13.1 Platelet Count 297 Mean Platelet Volume 7.3 Neutrophils (%) (Auto) 83.5 Lymphocytes (%) (Auto) 15.3 Monocytes (%) (Auto) 0.9 Eosinophils (%) (Auto) 0.0 Basophils (%) (Auto) 0.3 Neutrophils # (Auto) 7.1 Lymphocytes # (Auto) 1.3 Monocytes # (Auto) 0.1 Eosinophils # (Auto) 0.0 Basophils # (Auto) 0.0 CBC Comment DIFF FINAL Differential Comment Blood Urea Nitrogen 12 Creatinine 0.69 Random Glucose 129 Total Protein 6.8 Albumin 3.4 Calcium Level 8.7 Alkaline Phosphatase 51 Aspartate Amino Transf (AST/SGOT) 30 Alanine Aminotransferase (ALT/SGPT) 45 Total Bilirubin 0.2 Sodium Level 144 Potassium Level 3.7 Chloride Level 114 Carbon Dioxide Level 19.2 Anion Gap 11 Estimat Glomerular Filtration Rate 87 C-Reactive Protein 0.43 Rheumatoid Factor Screen NEGATIVE Rheumatoid Factor Titer Problem Qualifiers (1) HTN (hypertension): Qualified Codes: I10 - Essential (primary) hypertension Lebron Lemus MD Aug 17, 2017 10:26
[2017-08-17] MEDS ORDERED: methylPREDNISolone SOD SUCC 40 MG/1 ML VIAL IV PUSH SCH (12:00)
[2017-08-17] MEDS ORDERED: GADODIAMIDE PF 287 MG/ML 20 ML VIAL (for RAD MRI) IVCONTRAST ONE (13:11)
--- NOTE | 2017-08-17 13:43 | RADRPT ---
EXAM DATE: 08/17/2017 1:35 PM EDT AGE/SEX: 62 years / Female INDICATIONS: Multiple sclerosis. CLINICAL DATA: This is the patient's initial encounter. Patient reports that signs and symptoms have been present for 3 days and indicates a pain score of 0/10. MEDICAL/SURGICAL HISTORY: Hypertension. Cholecystectomy. Hysterectomy. COMPARISON: No prior exams available for comparison. TECHNIQUE: Multiplanar, multisequence MRI of the thoracic spine was performed without and with 15cc ml Omniscan (gadodiamide) contrast as a single exam dose. FINDINGS: Vertebrae: Normal vertebral body height. Bone marrow signal is within normal limits. Alignment: No anterolisthesis or retrolisthesis. Cord: Normal signal. T1-T2: No disc herniation, canal stenosis, or neural foraminal stenosis. T2-T3: No disc herniation, canal stenosis, or neural foraminal stenosis. T3-T4: No disc herniation, canal stenosis, or neural foraminal stenosis. T4-T5: No disc herniation, canal stenosis, or neural foraminal stenosis. T5-T6: No disc herniation, canal stenosis, or neural foraminal stenosis. T6-T7: No disc herniation, canal stenosis, or neural foraminal stenosis. T7-T8: No disc herniation, canal stenosis, or neural foraminal stenosis. T8-T9: No disc herniation, canal stenosis, or neural foraminal stenosis. T9-T10: No disc herniation, canal stenosis, or neural foraminal stenosis. T10-T11: No disc herniation, canal stenosis, or neural foraminal stenosis. T11-T12: There is a mild disc bulge centrally. No canal stenosis or neural foraminal stenosis is pre sent. T12-L1: No disc herniation, canal stenosis, or neural foraminal stenosis. Other: The visualized surrounding structures demonstrate no acute abnormality. CONCLUSION: 1. Spinal cord has a normal appearance. There are no findings to indicate multiple sclerosis involve ment of the thoracic spinal cord. 2. Mild degenerative disc disease at T11-T12. No canal stenosis or neural foraminal narrowing is pre sent. Electronically signed by: Domenico Mario MD 08/17/2017 1:41 PM EDT
--- NOTE | 2017-08-17 14:03 | EKG ---
Date Performed: 08/16/2017 Time Performed: 02:57:46 PTAGE: 62 years EKG: Sinus rhythm with borderline 1st degree A-V block Low QRS voltages in precordial leads Borderline ECG PREVIOUS TRACING : 08/15/2017 22.21 Since the previous tracing, no significant change noted DOCTOR: Warren Bang Interpretating Date/Time 08/17/2017 14:02:34
--- NOTE | 2017-08-17 16:10 | MB ---
cc: Wale Andrade MD DATE: 08/17/2017 REQUESTING PHYSICIAN: Dr. Burgess. REASON FOR CONSULTATION: MRI changes concerning for encephalitis, appreciate recommendations. HISTORY OF PRESENT ILLNESS: This is a 62-year-old white female who was having trouble with her vision beginning approximately 2 weeks ago. The patient works at [employer]. She noticed that the lights were very bright and she was having difficulty with the bright lights. This continued for about a week and after that she started seeing flashes of light in the vision and difficulty with peripheral vision and then she started having trouble with seeing floaters in the field of vision. She was evaluated by an bead wrapper 2 days ago and she was found to have a left homonymous hemianopsia. She was felt likely to be having a stroke and she was sent to [facility] for evaluation. She presented with a prescription outlining series of imaging and testing. She has a history of hypertension and atrial fibrillation. The patient notes that prior to that, she was fine. She denies any difficulty driving to and from work during the time of the occurrence. 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 She also denies numbness of the extremities or difficulty with speech or swallowing. The patient has hypertension for which she takes medications. She notes that the only new cadw-gbq-vwwbybj pill she has taken recently is to tumeric, which she started taking a month ago. She denies any respiratory symptoms. She denies headache, nausea, vomiting, night sweats, chills, chest pain, dysuria, diarrhea. She has partial dentures. She reports having teeth cleaning about a week ago after the onset of these symptoms. She has not traveled outside of [place]. She has no exposure to unusual pets and she has no pets at home. She notes that she does gardening as a hobby, but has not done so in about a month because of the hot weather. She notes occasional swelling of her ankles when she is on her feet at work. On presentation, temperature normal. Heart rate was normal. White blood cell count is normal. CT scan of the head was performed and showed no acute abnormalities. MRA of the head showed no intracranial arterial vascular abnormality. MRI of the brain shows multifocal areas of abnormal edema, which do not demonstrate features to indicate recent ischemia. Abnormal areas include anterior right temporal lobe, right thalamus, left parietal region and left roslyn. There also noted to be a few scattered periventricular and subcortical areas of white matter signal change, likely representing chronic microvascular ischemia in these areas. MRI of the thoracic spine shows normal spinal cord appearance and no findings to indicate multiple sclerosis involvement of the thoracic spinal cord. Mild degenerative disk disease of T11-T12 is noted. Sedimentation rate is 5. C-reactive protein is mildly elevated. Rheumatoid factor screen is negative. The patient has had no neck stiffness. She denies weight loss. No prior history of stroke. PAST MEDICAL HISTORY: Hypertension, cholelithiasis, breast augmentation, hysterectomy, cholecystectomy. She reports having a heart murmur in the past. ALLERGIES: NO KNOWN DRUG ALLERGIES. MEDICATIONS: Ceftriaxone, acyclovir, Lactinex, Solu-Medrol, Marychuy-Colace, Lipitor, [place] 5. SOCIAL HISTORY: Positive tobacco use. No alcohol. No illicit drugs. FAMILY HISTORY: One sister has IHSS and has a defibrillator and 1 brother has heart murmur. REVIEW OF SYSTEMS: Pertinent mentioned above in history of present illness. PHYSICAL EXAMINATION: GENERAL: This is a pleasant, well-developed female who is in no acute distress. She is awake and alert and oriented. VITAL SIGNS: Includes temperature 97.8, BP 139/73, respirations 19, heart rate 105. HEENT: Head is atraumatic. Extraocular movements are grossly intact. Pupils reactive to light, equal. No icterus. No conjunctival erythema. Oropharynx moist mucosa without lesions. NECK: Supple, no adenopathy. LUNGS: Clear to auscultation. HEART: Regular S1 and S2. No audible murmurs, rubs or gallops. ABDOMEN: Bowel sounds present. Soft, nontender. No palpable mass. No hepatosplenomegaly. RECTAL: Not performed. EXTREMITIES: No clubbing, cyanosis or edema. SKIN: No rash. NEUROLOGIC: Nonfocal, except for decreased peripheral vision in both the left and the right eye. PSYCHIATRIC: The patient is calm and cooperative. LABORATORY DATA: WBC 8.5, platelets 297. Hemoglobin 13.2, 83% neutrophils, 15% lymphocytes. Creatinine 0.69, BUN 12, sodium 144. Liver function test normal. Thyroid stimulating hormone normal. IMPRESSION: 1. Vision loss in a patient with abnormal MRI. Questionable secondary to ischemia. 2. Rule out encephalitis. The patient's features is not suggesting infectious encephalitis. However, we will need CSF evaluation to assess that further. 3. Rule out embolic phenomena. 4. Rule out vasculitis. The patient has normal sedimentation rate, which argues against vasculitis, and she also had an MRA of the brain, which did not find any intracranial arterial vascular abnormality. Potential infection cause include Lyme disease, CMV, HSV and HIV associated TELESALES CONSULTANT disease. RECOMMENDATIONS: 1. Continue ceftriaxone. 2. Continue acyclovir. 3. Monitor CSF testing when performed. 4. Monitor HIV testing. 5. Follow her clinical status. 6. Monitor the response to current treatment. 7. If any elevation of temperature obtain blood cultures. Thank you for this consultation. The patient's progress will be monitored and further recommendations will be given upon followup if necessary. Wale Andrade MD FFElieser/MICHELE , 03:19 PM , 04:09 PM VIKTORIA
--- NOTE | 2017-08-17 16:34 | HHI.PR ---
Subjective Remarks Pt very concerned and stressed as her sister is admitted also for a brain bleed. Pt states that she doesn't understand how this could be happening as she has been feeling fine except for the sensation of bright light and now the peripheral vision loss. denies any n/v/cp/sob. pt would like her prilosec restarted. Objective Vitals Vital Signs Date Time Temp Pulse Resp B/P (MAP) Pulse Ox O2 Delivery O2 Flow Rate FiO2 08/17/17 14:07 97.8 105 19 139/73 (95) 95 08/17/17 10:50 97.8 90 18 128/70 (89) 96 08/17/17 10:07 92 21 08/17/17 04:00 97.4 82 20 120/74 (89) 96 08/17/17 00:00 98.5 96 16 95/58 (70) 95 08/17/17 00:00 94 08/16/17 23:00 92 08/16/17 22:00 92 08/16/17 21:00 102 08/16/17 20:00 85 08/16/17 20:00 97.9 94 16 119/76 (90) 97 08/16/17 19:00 86 08/16/17 18:00 82 I/O 08/16/17 08/16/17 08/16/17 08/17/17 08/17/17 08/17/17 07:00 15:00 23:00 07:00 15:00 23:00 Intake Total 240 ml 700 ml 480 ml Output Total 550 ml 800 ml Balance 240 ml 150 ml -320 ml Intake Oral 240 ml 700 ml 480 ml Output Urine Total 550 ml 800 ml # Bowel Movements 0 Result Diagram: 08/17/17 0349 08/17/17 0349 Imaging Last Impressions Thoracic Spine MRI 08/17/17 0000 Signed Impressions: CONCLUSION: 1. Spinal cord has a normal appearance. There are no findings to indicate mult iple sclerosis involvement of the thoracic spinal cord. 2. Mild degenerative disc disease at T11-T12. No canal stenosis or neural fora chelsie narrowing is present. Head Magnetic Resonance Angiography 08/16/17 0000 Signed Impressions: CONCLUSION: No intracranial arterial vascular abnormality is identified. Cervical Spine MRI 08/16/17 0000 Signed Impressions: CONCLUSION: 1. No cord signal abnormalities to suggest multiple sclerosis. 2. Degenerative disc disease most severe at C5-6-7 where there is mild impress ion on the anterior surface of the cord. Slight reversal of normal cervical nohemy dosis. Brain MRI 08/16/17 Signed Impressions: CONCLUSION: 1. Multifocal areas of abnormal edema which do not demonstrate features to ind icate recent ischemia. The abnormal areas include the anterior right temporal l obe, right thalamus, left parietal region, and left roslyn. Etiology is uncertain . Encephalitis from uncertain etiology should be a consideration. In general, c onsider infectious or inflammatory conditions. 2. There are a few scattered periventricular and subcortical areas of white ma tter signal change most likely representing chronic microvascular ischemia in t hese areas. Head CT 08/15/17 Signed Impressions: CONCLUSION: 1. No acute intracranial abnormalities. Chest X-Ray 08/15/17 Signed Impressions: CONCLUSION: Minimal linear scarring or atelectasis left base. Otherwise no acute findings. Objective Remarks GENERAL: sitting up in bed, comfortable CARDIOVASCULAR: Regular rate and rhythm without murmurs RESPIRATORY: Breath sounds equal bilaterally. No accessory muscle use. GASTROINTESTINAL: Abdomen soft, non-tender, nondistended. MUSCULOSKELETAL: No edema. A/P Problem List: (1) Vision loss ICD Code: H54.7 - Unspecified visual loss Status: Acute (2) Hypokalemia ICD Code: E87.6 - Hypokalemia (3) HTN (hypertension) ICD Code: I10 - Essential (primary) hypertension Status: Chronic Assessment and Plan 62-year-old female admitted secondary to peripheral vision loss Progressive peripheral vision loss Possible CVA head MRA neg but MRI concerning for an infectious vs inflammatory process. Thoracic spine w no finding suggestive of MS. CT showed no evidence of etiology neurology following, CSF studies were ordered by neuro. On high dose IV solu-medrol. HIV, RPR, Lyme antibodies, anti-NMO antibodies ordered PT OT eval Continue statin ID also consulted. on IV rocephin and acyclovir Hypertension stable Follow blood pressures Adjust treatments as needed Hypokalemia Monitor and replace as needed DVT prophylaxis SCDs Discharge Planning f/u on CSF studies. monitor clinically. Problem Qualifiers (1) HTN (hypertension): Qualified Codes: I10 - Essential (primary) hypertension Lori Burgess MD Aug 17, 2017 16:34
[2017-08-17] MEDS: PANTOPRAZOLE SOD 20 MG DELAYED RELEASE TAB PO SCH (17:00)
[2017-08-17] MEDS: methylPREDNISolone SO SUCC INJ 500 MG in SODIUM CHLORIDE 0.9% INJ 100 ML IV SCH (17:07)
[2017-08-17] MEDS: ATORVASTATIN 20 MG TAB PO SCH (21:39)
[2017-08-18] VITALS (10 sets, daily range): BP systolic 112–174; BP diastolic 64–91; PULSE 77–114; RESP 16–18; TEMP 97.6–98.3; O2SAT 92–96
[2017-08-18] MEDS: ACYCLOVIR INJ 700 MG in SODIUM CHLORIDE 0.9% INJ 100 ML IV SCH ×3 (01:43→17:39)
[2017-08-18] MEDS: methylPREDNISolone SO SUCC INJ 500 MG in SODIUM CHLORIDE 0.9% INJ 100 ML IV SCH ×2 (04:59→15:22)
[2017-08-18] MEDS: ACETAMINOPHEN/HYDROcodone 325 MG/5 MG TAB PO PRN ×3 (05:04→15:21)
[2017-08-18] MEDS: cefTRIAXone INJ 2,000 MG in SODIUM CHLORIDE 0.9% INJ 100 ML IV SCH ×2 (06:15→19:02)
[2017-08-18 07:54] LABS: CALCIUM 8.8 MG/DL (8.5-10.1); CREATININE 0.79 MG/DL (0.50-1.00)
[2017-08-18] MEDS: INSULIN ASPART SUPPLEMENTAL SCALE SQ SCH ×4 (08:00→20:29)
[2017-08-18] MEDS: LACTOBACILLUS ACIDOPHILUS TAB PO SCH ×3 (08:14→17:47)
[2017-08-18] MEDS: DOCUSATE SODIUM 50 MG/SENNA 8.6 MG TAB PO SCH ×2 (08:14→20:28)
[2017-08-18] MEDS: ALPRAZolam 0.25 MG TAB PO PRN (08:14)
[2017-08-18] MEDS: PANTOPRAZOLE SOD 20 MG DELAYED RELEASE TAB PO SCH (08:14)
[2017-08-18] MEDS: SODIUM CHLORIDE 0.9% FLUSH 10 ML FLUSH IV FLUSH SCH ×2 (08:15→20:29)
[2017-08-18] MEDS: SODIUM CHLOR 0.9% 1000 ML INJ 1,000 ML IV SCH (08:18)
--- NOTE | 2017-08-18 08:46 | HHI.PR ---
Review/Management Diagnosis/Plan: (1) Vision loss ICD Codes: H54.7 - Unspecified visual loss Status: Acute Plan: MRI brain scan reviewed No evidence of acute stroke however multiple areas of white matter changes so appear to be small vessel disease other may be demyelinating lesions versus encephalitis although is afebrile and lacks constitutional symptoms Risk factors include chronic hypertension, tobacco use MRI C-spine and T-spine did not show any cord lesion Recommendations CSF studies; pending Trial of IV steroids; progress. She noticed over little change in her vision Check HIV, RPR, Lyme antibodies, anti-NMO antibodies, anti-mag antibodies; pending PT OT eval Blood pressure control Tobacco cessation Follow exam Discussed with patient. Told her she might be here until Friday of this week (2) HTN (hypertension) ICD Codes: I10 - Essential (primary) hypertension Status: Chronic Plan: Goal less than 120/80 On antihypertensives (3) Tobacco use ICD Codes: Z72.0 - Tobacco use Status: Chronic Plan: Cessation discussed with the patient Subjective Subjective Comments No acute events reported No headache No chest pain No dyspnea Active Medications Current Medications Medications (Trade) Dose Ordered Sig/Madeleine Route Start Time Stop Time Status Last Admin (NS Flush) 2 ml BID IV FLUSH 08/16/17 09:00 08/16/17 12:51 (NS Flush) 2 ml UNSCH PRN IV FLUSH 08/15/17 23:45 Sodium Chloride 1,000 ml @ 70 mls/hr [id number] IV 08/15/17 23:44 08/18/17 08:18 (Vasotec Inj) 1.25 mg Q4H PRN IV PUSH 08/15/17 23:45 (NovoLOG SUPPLEMENTAL SCALE) 1 ACHS SQ 08/16/17 08:00 08/17/17 21:40 (D50w (Vial) Inj) 50 ml UNSCH PRN IV PUSH 08/15/17 23:45 (Glucagon Inj) 1 mg UNSCH PRN OTHER 08/15/17 23:45 (Xanax) 0.25 mg Q4H PRN PO 08/15/17 23:45 08/18/17 08:14 (Tylenol) 650 mg Q6H PRN PO 08/16/17 00:15 08/17/17 04:24 ([place] 5-325 Mg) 1 tab Q4H PRN PO 08/16/17 00:15 08/18/17 05:04 (Morphine Inj) 2 mg Q3H PRN IV PUSH 08/16/17 00:15 (Marychuy-Colace) 1 tab BID PO 08/16/17 09:00 08/18/17 08:14 (Milk Of Magnesia Liq) 30 ml Q12H PRN PO 08/16/17 00:15 (Senokot) 17.2 mg Q12H PRN PO 08/16/17 00:15 (Dulcolax Supp) 10 mg DAILY PRN RECTAL 08/16/17 00:15 (Lactulose Liq) 30 ml DAILY PRN PO 08/16/17 00:15 (Lipitor) 20 mg HS PO 08/16/17 00:30 08/17/17 21:39 Ceftriaxone Sodium 2000 mg/ Sodium Chloride 100 ml @ 200 mls/hr Q12H IV 08/16/17 18:00 08/18/17 06:15 Acyclovir Sodium 700 mg/Sodium Chloride 100 ml @ 100 mls/hr Q8H IV 08/16/17 17:00 08/18/17 01:43 (Lactinex) 1 tab TID PO 08/16/17 18:00 08/18/17 08:14 Methylprednisolone Sodium Succinate 500 mg/Sodium Chloride 100 ml @ 200 mls/hr Q12H IV 08/17/17 16:00 08/18/17 04:59 (Protonix) 20 mg DAILY PO 08/17/17 17:00 08/18/17 08:14 Allergies Allergies Coded Allergies No Known Allergies (Verified Allergy, Severe, 08/26/05) Review of Systems All other ROS: ROS reviewed as documented in chart Exam I&O / VS 08/18/17 08/18/17 08/19/17 15:00 23:00 07:00 Intake Total 1000 ml Balance 1000 ml IV Total 1000 ml Vital Signs Date Time Temp Pulse Resp B/P (MAP) Pulse Ox O2 Delivery O2 Flow Rate FiO2 08/18/17 04:00 98.3 85 16 112/64 (80) 94 08/18/17 03:49 77 08/18/17 00:00 97.7 87 18 119/69 (86) 95 08/17/17 23:50 84 08/17/17 20:30 103 08/17/17 19:36 97.8 96 18 143/75 (97) 94 08/17/17 16:30 98.0 102 17 158/87 (110) 98 08/17/17 14:07 97.8 105 19 139/73 (95) 95 08/17/17 10:50 97.8 90 18 128/70 (89) 96 08/17/17 10:07 92 21 General: Alert and Oriented, No acute distress Eye: PERRL, EOMI Respiratory: Non-labored respirations, BS equal, Symmetrical expansion, No chest wall tenderness Cardiology: Normal rate, No edema Musculoskeletal: ROM Neurologic: Alert, Oriented, Normal sensory, Normal motor Psychiatric: Cooperative, Appropriate mood & affect, Normal judgement, Non- suicidal Exam Comments Awake alert oriented 3, pleasant no aphasia follows motor request, articulate speech extraocular movements intact left curvilinear homonymous hemianopsia no facial asymmetry tongue midline strength 5 out of 5 her lower limbs no pronator drift no dysmetria mild lower extremity hyperreflexia, no clonus plantarflex response Objective Micro and Labs Laboratory Tests Test 08/17/17 14:44 08/18/17 05:56 HIV (1&2) Ab and P24 Ag, 4th Gener NONREACTIVE Blood Urea Nitrogen 15 Creatinine 0.79 Random Glucose 145 Calcium Level 8.8 Sodium Level 146 Potassium Level 3.5 Chloride Level 115 Carbon Dioxide Level 18.0 Anion Gap 13 Estimat Glomerular Filtration Rate 74 Problem Qualifiers (1) HTN (hypertension): Qualified Codes: I10 - Essential (primary) hypertension Lebron Lemus MD Aug 18, 2017 08:46
--- NOTE | 2017-08-18 08:55 | PD.RAD ---
Post Procedure Progress Note Pre Procedure Diagnosis: (1) Vision loss Post Procedure Diagnosis: (1) Vision loss Procedure Date: Aug 18, 2017 Supervising Radiologist: Yossi Berger Proceduralist/Assist: Lee Joshi, RT(R), Gayla Nix RT(R) Anesthesia: Local Plan of Activity Patient to Unit: [facility]OP[facility] Patient Condition: Good See PACS Report for procedural detail/treatment Yossi Berger MD Aug 18, 2017 08:55
[2017-08-18 10:09] LABS: SUPERNATE COLOR TUBE #1 CLEAR (CLEAR); VOLUME TUBE # 1 2.9 ML
[2017-08-18 10:12] LABS: CSF LYMPHOCYTES 93 %; CSF MONOCYTES 7 %
[2017-08-18 10:14] LABS: WBC TUBE #4 1 /MM3 (0-10)
[2017-08-18 10:15] LABS: CSF NEUTROPHILS 0 %; RBC TUBE #4 0 /MM3
--- NOTE | 2017-08-18 13:14 | RADRPT ---
EXAM DATE: 08/18/2017 9:05 AM EDT AGE/SEX: 62 years / Female INDICATIONS: Patient with history of photophobia in need of lumbar puncture. CLINICAL DATA: This is the patient's initial encounter. Patient reports that signs and symptoms have been present for 1 week and indicates a pain score of 0/10. MEDICAL/SURGICAL HISTORY: Cholelithasis. Hypertension. A-Fib. Cholecystectomy. Hysterectomy. COMPARISON: No prior exams available for comparison. FLUORO TIME (min): 0.25 IMAGE SERIES: 1 ACCESS SITE: L3-4 LUMBAR PUNCTURE TIME: 0846 hours FLUID: Total volume of 12 cc of clear fluid was removed. Fluid was sent to lab for ordered studies. . . PROCEDURE: 1. Fluoroscopic guided lumbar puncture. The risks, benefits and alternatives to the procedure were explained and verbal and written consent w as obtained. The site was prepped in sterile fashion. Full sterile technique was used, including ca p, mask, sterile gloves and gown and a large sterile sheet. Hand hygiene and 2% chlorhexidine and/or betadine/alcohol prep was utilized per protocol for cutaneous antisepsis. The skin and subcutaneous tissues were infiltrated with local anesthetic solution. With fluoroscopic guidance the lumbar thecal sac was punctured at the level above. The fluid describ ed above was removed without difficulty. The patient tolerated the procedure well and there were no complications. CONCLUSION: 1. Uncomplicated fluoroscopically guided lumbar puncture. Electronically signed by: Yossi Berger MD 08/18/2017 1:12 PM EDT
[2017-08-18 13:55] LABS: RPR SCREEN FOR REFLEX NON-REACTIVE (NON-REACTVE)
--- NOTE | 2017-08-18 15:06 | HHI.PR ---
Subjective Remarks Pt states she sees no difference since being started on the steroids. had her LP today. Hopeful to be discharged soon. no CP/SOB/N/V Objective Vitals Vital Signs Date Time Temp Pulse Resp B/P (MAP) Pulse Ox O2 Delivery O2 Flow Rate FiO2 08/18/17 10:53 93 08/18/17 04:00 98.3 85 16 112/64 (80) 94 08/18/17 03:49 77 08/18/17 00:00 97.7 87 18 119/69 (86) 95 08/17/17 23:50 84 08/17/17 20:30 103 08/17/17 19:36 97.8 96 18 143/75 (97) 94 08/17/17 16:30 98.0 102 17 158/87 (110) 98 I/O 08/17/17 08/17/17 08/17/17 08/18/17 08/18/17 08/18/17 07:00 15:00 23:00 07:00 15:00 23:00 Intake Total 480 ml 600 ml 1100 ml Output Total 800 ml Balance -320 ml 600 ml 1100 ml Intake Oral 480 ml 600 ml IV Total 1100 ml Output Urine Total 800 ml # Voids 5 # Bowel Movements 0 Result Diagram: 08/17/17 0349 08/18/17 0556 Imaging Last Impressions Lumbar Puncture Fluoroscopy 08/18/17 0000 Signed Impressions: CONCLUSION: 1. Uncomplicated fluoroscopically guided lumbar puncture. Thoracic Spine MRI 08/17/17 0000 Signed Impressions: CONCLUSION: 1. Spinal cord has a normal appearance. There are no findings to indicate mult iple sclerosis involvement of the thoracic spinal cord. 2. Mild degenerative disc disease at T11-T12. No canal stenosis or neural fora chelsie narrowing is present. Head Magnetic Resonance Angiography 08/16/17 0000 Signed Impressions: CONCLUSION: No intracranial arterial vascular abnormality is identified. Cervical Spine MRI 08/16/17 0000 Signed Impressions: CONCLUSION: 1. No cord signal abnormalities to suggest multiple sclerosis. 2. Degenerative disc disease most severe at C5-6-7 where there is mild impress ion on the anterior surface of the cord. Slight reversal of normal cervical nohemy dosis. Brain MRI 08/16/17 0000 Signed Impressions: CONCLUSION: 1. Multifocal areas of abnormal edema which do not demonstrate features to ind icate recent ischemia. The abnormal areas include the anterior right temporal l obe, right thalamus, left parietal region, and left roslyn. Etiology is uncertain . Encephalitis from uncertain etiology should be a consideration. In general, c onsider infectious or inflammatory conditions. 2. There are a few scattered periventricular and subcortical areas of white ma tter signal change most likely representing chronic microvascular ischemia in t hese areas. Head CT 08/15/17 0000 Signed Impressions: CONCLUSION: 1. No acute intracranial abnormalities. Chest X-Ray 08/15/17 0000 Signed Impressions: CONCLUSION: Minimal linear scarring or atelectasis left base. Otherwise no acute findings. Objective Remarks GENERAL: laying in bed, comfortable CARDIOVASCULAR: Regular rate and rhythm without murmurs RESPIRATORY: Breath sounds equal bilaterally. No accessory muscle use. GASTROINTESTINAL: Abdomen soft, non-tender, nondistended. MUSCULOSKELETAL: No edema. A/P Problem List: (1) Vision loss ICD Code: H54.7 - Unspecified visual loss Status: Acute (2) Hypokalemia ICD Code: E87.6 - Hypokalemia (3) HTN (hypertension) ICD Code: I10 - Essential (primary) hypertension Status: Chronic Assessment and Plan 62-year-old female admitted secondary to peripheral vision loss Progressive peripheral vision loss Possible CVA head MRA neg but MRI concerning for an infectious vs inflammatory process ( pituitary normal). Thoracic spine w no finding suggestive of MS. CT showed no evidence of etiology neurology following, s/p LP and CSF studies pending. On high dose IV solu-medrol. HIV non reactive, RPR non reactive, Lyme antibodies, anti-NMO antibodies pending PT OT eval Continue statin ID also following. continue IV rocephin and acyclovir Hypertension stable Follow blood pressures Adjust treatments as needed Hypokalemia Monitor and replace as needed DVT prophylaxis SCDs Discharge Planning f/u on CSF studies. continue IV steroids. monitor clinically. need clearance from neuro and ID Problem Qualifiers (1) HTN (hypertension): Qualified Codes: I10 - Essential (primary) hypertension Lori Burgess MD Aug 18, 2017 15:06
--- NOTE | 2017-08-18 16:15 | HHI.IDPN ---
Note Infectious Disease Note Patient states that her vision has not improved. She denies headache. No fever. CSF revealed 1 white cell. Denies nausea or vomiting. HIV test is negative. Patient admitted with visual loss. Workup in progress. MRI of the brain showed multifocal areas of abnormal edema, which do not demonstrate features to indicate recent ischemia. Abnormal areas include anterior right temporal lobe, right thalamus, left parietal region and left roslyn. There also noted to be a few scattered periventricular and subcortical areas of white matter signal change, likely representing chronic microvascular ischemia in these areas. The patient has had no neck stiffness. She denies weight loss. No prior history of stroke. PAST MEDICAL HISTORY: Hypertension, cholelithiasis, breast augmentation, hysterectomy, cholecystectomy. She reports having a heart murmur in the past. ALLERGIES: NO KNOWN DRUG ALLERGIES. MEDICATIONS: Current Medications Medications (Trade) Dose Ordered Sig/Madeleine Route PRN Reason Start Time Stop Time Status Last Admin Dose Admin Sodium Chloride (NS Flush) 2 ml BID IV FLUSH 08/16/17 09:00 08/16/17 12:51 Sodium Chloride (NS Flush) 2 ml UNSCH PRN IV FLUSH FLUSH AFTER USING IV ACCESS 08/15/17 23:45 Enalaprilat (Vasotec Inj) 1.25 mg Q4H PRN IV PUSH For SBP > 220 or DBP > 120 08/15/17 23:45 Insulin Aspart (NovoLOG SUPPLEMENTAL SCALE) 1 ACHS SQ 08/16/17 08:00 08/18/17 12:49 Dextrose (D50w (Vial) Inj) 50 ml UNSCH PRN IV PUSH HYPOGLYCEMIA-SEE COMMENTS 08/15/17 23:45 Glucagon (Glucagon Inj) 1 mg UNSCH PRN OTHER HYPOGLYCEMIA-SEE COMMENTS 08/15/17 23:45 Alprazolam (Xanax) 0.25 mg Q4H PRN PO ANXIETY 08/15/17 23:45 08/18/17 08:14 Acetaminophen (Tylenol) 650 mg Q6H PRN PO FEVER/PAIN SCALE 1 TO 2 08/16/17 00:15 08/17/17 04:24 Acetaminophen/ Hydrocodone Bitart ([place] 5-325 Mg) 1 tab Q4H PRN PO PAIN SCALE 3 TO 5 08/16/17 00:15 08/18/17 15:21 Morphine Sulfate (Morphine Inj) 2 mg Q3H PRN IV PUSH Pain 6-10 08/16/17 00:15 Senna/Docusate Sodium (Mary[place]uy-Colace) 1 tab BID PO 08/16/17 09:00 08/18/17 08:14 Magnesium Hydroxide (Milk Of Magnesia Liq) 30 ml Q12H PRN PO Mild constipation 08/16/17 00:15 Sennosides (Senokot) 17.2 mg Q12H PRN PO Moderate constipation 08/16/17 00:15 Bisacodyl (Dulcolax Supp) 10 mg DAILY PRN RECTAL SEVERE CONSITIPATION 08/16/17 00:15 Lactulose (Lactulose Liq) 30 ml DAILY PRN PO SEVERE CONSITIPATION 08/16/17 00:15 Atorvastatin Calcium (Lipitor) 20 mg HS PO 08/16/17 00:30 08/17/17 21:39 Ceftriaxone Sodium 2000 mg/ Sodium Chloride 100 ml @ 200 mls/hr Q12H IV 08/16/17 18:00 08/18/17 06:15 Acyclovir Sodium 700 mg/Sodium Chloride 100 ml @ 100 mls/hr Q8H IV 08/16/17 17:00 08/18/17 09:56 Lactobacillus Acidophilus (Lactinex) 1 tab TID PO 08/16/17 18:00 08/18/17 12:48 Methylprednisolone Sodium Succinate 500 mg/Sodium Chloride 100 ml @ 200 mls/hr Q12H IV 08/17/17 16:00 08/18/17 15:22 Pantoprazole Sodium (Protonix) 20 mg DAILY PO 08/17/17 17:00 08/18/17 08:14 FAMILY HISTORY: One sister has IHSS and has a defibrillator and 1 brother has heart murmur. One sister has suffered a brain hemorrhage. PHYSICAL EXAMINATION: GENERAL: Patient is in no acute distress. HEENT: Head is atraumatic. Extraocular movements are grossly intact. Pupils reactive to light, equal. No icterus. No conjunctival erythema. Oropharynx moist mucosa without lesions. NECK: Supple, no adenopathy. LUNGS: Clear to auscultation. HEART: Regular S1 and S2. No audible murmurs, rubs or gallops. ABDOMEN: Bowel sounds present. Soft, nontender. No palpable mass. No hepatosplenomegaly. EXTREMITIES: No clubbing, cyanosis or edema. SKIN: No rash. NEUROLOGIC: Nonfocal, except for decreased peripheral vision in both the left and the right eye. PSYCHIATRIC: The patient is calm and cooperative. IMPRESSION: 1. Vision loss in a patient with abnormal MRI. Questionable secondary to ischemia. 2. Rule out encephalitis. The patient's features is not suggesting infectious encephalitis. CSF test pending. 3. Rule out embolic phenomena. 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 RECOMMENDATIONS: 1. Continue ceftriaxone. 2. Continue acyclovir. 3. Monitor CSF tests. 4. Repeat a ophthalmology testing. 5. Follow the clinical status. 6. Monitor the clinical response. Wale Andrade MD Aug 18, 2017 16:15
--- NOTE | 2017-08-18 19:12 | ECHRPT ---
Indication: CEREBRAL EMBOLISM CONCLUSIONS The left ventricular systolic function is normal with an estimated ejection fraction in the range of 60-65%. Mild concentric left ventricular hypertrophy. Left ventricular diastolic function parameters are normal. There is trace tricuspid valve regurgitation. BP: / HR: Rhythm: Sinus MEASUREMENTS (Male / Female) Normal Values Technical Quality:Fair 2D ECHO LV Diastolic Diameter PLAX 4.2 cm 4.2 - 5.9 / 3.9 - 5.3 cm LV Systolic Diameter PLAX 3.0 cm IVS Diastolic Thickness 1.1 cm 0.6 - 1.0 / 0.6 - 0.9 cm LVPW Diastolic Thickness 1.1 cm 0.6 - 1.0 / 0.6 - 0.9 cm LV Relative Wall Thickness 0.5 RV Internal Dim ED PLAX 2.6 cm LVOT Diameter 1.9 cm Aortic Root Diameter 3.0 cm LA Systolic Diameter LX 3.3 cm 3.0 - 4.0 / 2.7 - 3.8 cm M-MODE AV Cusp Separation MM 1.8 cm DOPPLER AV Peak Velocity 150.0 cm/s AV Peak Gradient 9.0 mmHg AV Mean Gradient 5.0 mmHg AV Velocity Time Integral 26.7 cm LVOT Peak Velocity 108.0 cm/s LVOT Peak Gradient 4.7 mmHg LVOT Velocity Time Integral 16.4 cm AV Area Cont Eq vti 1.7 cm AV Area Cont Eq pk 2.0 cm Mitral E Point Velocity 138.0 cm/s Mitral A Point Velocity 113.0 cm/s Mitral E to A Ratio 1.2 LV E' Lateral Velocity 16.1 cm/s Mitral E to LV E' Lateral Ratio 8.6 LV E' Septal Velocity 14.9 cm/s Mitral E to LV E' Septal Ratio 9.3 TR Peak Velocity 261.0 cm/s TR Peak Gradient 27.2 mmHg Right Atrial Pressure 10.0 mmHg Pulmonary Artery Systolic Pressu 37.2 mmHg Right Ventricular Systolic Press 37.2 mmHg PV Peak Velocity 133.0 cm/s PV Peak Gradient 7.1 mmHg FINDINGS LEFT VENTRICLE Normal left ventricular size. Mild concentric left ventricular hypertrophy. The left ventricular systolic function is normal with an estimated ejection fraction in the range of 60-65%. Left ventricular diastolic function parameters are normal. RIGHT VENTRICLE Normal right ventricular size and systolic function. LEFT ATRIUM The left atrial size is normal. RIGHT ATRIUM The right atrial size is normal. ATRIAL SEPTUM Normal atrial septal thickness without atrial level shunting by limited color doppler interrogation. AORTA The aortic root and proximal ascending aorta are normal in size on limited imaging. MITRAL VALVE Structurally normal mitral valve. No mitral valve stenosis or regurgitation. AORTIC VALVE Trileaflet aortic valve. No aortic valve stenosis or regurgitation. TRICUSPID VALVE Structurally normal tricuspid valve. There is trace tricuspid valve regurgitation. The estimated pulmonary arterial pressure is 37.2 mmHg. PULMONARY VALVE No pulmonary valve regurgitation or stenosis. VESSELS The inferior vena cava is normal in size. PERICARDIUM No pericardial effusion. Luis Manuel Jefferson DO (Electronically Signed) Final Date:18 August 2017 19:10
[2017-08-18] MEDS: ATORVASTATIN 20 MG TAB PO SCH (20:29)
[2017-08-19] VITALS (8 sets, daily range): BP systolic 127–153; BP diastolic 63–91; PULSE 67–103; RESP 16–17; TEMP 97.4–98.5; O2SAT 93–97
[2017-08-19] MEDS: ACYCLOVIR INJ 700 MG in SODIUM CHLORIDE 0.9% INJ 100 ML IV SCH ×3 (00:55→16:52)
[2017-08-19] MEDS: methylPREDNISolone SO SUCC INJ 500 MG in SODIUM CHLORIDE 0.9% INJ 100 ML IV SCH ×2 (03:31→15:09)
[2017-08-19] MEDS: ALPRAZolam 0.25 MG TAB PO PRN ×2 (04:49→15:09)
[2017-08-19] MEDS: ACETAMINOPHEN/HYDROcodone 325 MG/5 MG TAB PO PRN ×3 (04:50→16:52)
[2017-08-19] MEDS: ACETAMINOPHEN 325 MG TAB PO PRN (04:50)
[2017-08-19] MEDS: cefTRIAXone INJ 2,000 MG in SODIUM CHLORIDE 0.9% INJ 100 ML IV SCH ×2 (06:09→18:09)
[2017-08-19 07:22] LABS: BICARBONATE 19.8 MEQ/L (21.0-32.0); CALCIUM 8.2 MG/DL (8.5-10.1); CREATININE 0.63 MG/DL (0.50-1.00)
[2017-08-19] MEDS: INSULIN ASPART SUPPLEMENTAL SCALE SQ SCH ×4 (07:54→21:30)
[2017-08-19] MEDS: LACTOBACILLUS ACIDOPHILUS TAB PO SCH ×3 (08:54→18:09)
[2017-08-19] MEDS: SODIUM CHLORIDE 0.9% FLUSH 10 ML FLUSH IV FLUSH SCH ×2 (08:55→20:23)
[2017-08-19] MEDS: DOCUSATE SODIUM 50 MG/SENNA 8.6 MG TAB PO SCH ×2 (08:55→20:23)
[2017-08-19] MEDS: PANTOPRAZOLE SOD 20 MG DELAYED RELEASE TAB PO SCH (08:55)
[2017-08-19 09:37] LABS: HSV 1,PCR Negative (Negative)
[2017-08-19] MEDS ORDERED: POTASSIUM CHLORIDE 20 MEQ CONTROLLED RELEASE TAB PO ONE (12:30)
--- NOTE | 2017-08-19 13:01 | PD.CONS ---
History of Present Illness Service Ophthalmology Consult Requested By Reason for Consult left homonymous hemianopsia Primary Care Physician Tonya Howard M.D. Diagnoses: History of Present Illness 70 yo F with h/o of HTN and tobacco abuse c/o photophobia x 2 weeks and left homonymous hemianopsia x [address] Lui Mike (instrument fitter) who did a dilated exam which was normal and confirmed the peripheral visual deficit with a S[place] visual field test. He sent her to the ED for a possible CVA. Brain MRI shows multifocal areas of abnormal edema in the anterior right temporal lobe , right thalamus, left parietal region, and left roslyn. MRA brain normal. Cervical spine MRI shows degenerative disc disease. Echocardiogram did not have findings to explain vision loss. s/p LP with CSF studies pending. Currently on high dose IV solumedrol, Rocephin, and Acyclovir for empiric treatment. ESR 5, CRP 0.38, RF neg, MARLA neg, RPR neg, HSV neg, HIV neg. Lyme antibodies and anti- NMO antibodies pending. Pt states she has no significant ocular history. Symptoms have not changed since being admitted. Past Family Social History Allergies: Coded Allergies: No Known Allergies (Verified Allergy, Severe, 08/26/05) Physical Exam Vital Signs Vital Signs Date Time Temp Pulse Resp B/P (MAP) Pulse Ox O2 Delivery O2 Flow Rate FiO2 08/19/17 04:15 97.4 92 16 146/72 (96) 95 08/19/17 00:47 67 08/19/17 00:35 97.4 72 16 127/63 (84) 95 08/18/17 20:15 97.6 91 16 147/76 (99) 94 08/18/17 20:08 93 08/18/17 17:44 93 21 08/18/17 16:00 98.0 101 16 153/86 (108) 92 08/18/17 16:00 108 Physical Exam Va cc at near OD 20/25, OS 20/25 EOM full OU CVF left homonymous hemianopsia Pupils 2-1 no APD OU IOP normal to palpation OU Anterior exam OD - normal eyelid, C/S W&Q, K clear, AC deep, pupil round, lens clear OS - normal eyelid, C/S W&Q, K clear, AC deep, pupil round, lens clear Laboratory Laboratory Tests Test 08/19/17 06:29 Blood Urea Nitrogen 16 Creatinine 0.63 Random Glucose 115 Calcium Level 8.2 Sodium Level 146 Potassium Level 3.2 Chloride Level 112 Carbon Dioxide Level 19.8 Anion Gap 14 Estimat Glomerular Filtration Rate 96 Date/Time Source Procedure Growth Status 08/18/17 08:46 Cerebral Spinal Fluid Lumbar Puncture Gram Stain - Final Resulted 08/18/17 08:46 Cerebral Spinal Fluid Lumbar Puncture CSF Culture - Preliminary NO GROWTH IN 24 HOURS. Resulted Result Diagram: 08/17/17 0349 08/19/17 0629 Assessment and Plan Problem List: (1) Homonymous bilateral field defects, left side ICD Codes: H53.462 - Homonymous bilateral field defects, left side Plan: Multiple sclerosis and non-infectious encephalitis are uncommon causes of visual field defects and seem the most likely given the MRI findings. Will wait for remainder of test results. Danita Nelson MD Aug 19, 2017 13:01
--- NOTE | 2017-08-19 13:39 | HHI.PR ---
Subjective Remarks Follow up for vision loss. The patient reports her vision is unchanged compared to previous days. Still with peripheral vision loss. She reports constant diffuse frontal headache, associated with photophobia, denies nausea/vomiting. Denies any other medical complaints. She states she was seen by ophthalmology this morning who told her she may need transfer to [place] if no improvement. Objective Vitals Vital Signs Date Time Temp Pulse Resp B/P (MAP) Pulse Ox O2 Delivery O2 Flow Rate FiO2 08/19/17 04:15 97.4 92 16 146/72 (96) 95 08/19/17 00:47 67 08/19/17 00:35 97.4 72 16 127/63 (84) 95 08/18/17 20:15 97.6 91 16 147/76 (99) 94 08/18/17 20:08 93 08/18/17 17:44 93 21 08/18/17 16:00 98.0 101 16 153/86 (108) 92 08/18/17 16:00 108 I/O 08/18/17 08/18/17 08/18/17 08/19/17 08/19/17 08/19/17 07:00 15:00 23:00 07:00 15:00 23:00 Intake Total 600 ml 1800 ml 200 ml 720 ml Balance 600 ml 1800 ml 200 ml 720 ml Intake Oral 600 ml 720 ml IV Total 1800 ml 200 ml # Voids 5 5 # Bowel Movements 0 Result Diagram: 08/17/17 0349 08/19/17 0629 Imaging Last Impressions Lumbar Puncture Fluoroscopy 08/18/17 0000 Signed Impressions: CONCLUSION: 1. Uncomplicated fluoroscopically guided lumbar puncture. Thoracic Spine MRI 08/17/17 0000 Signed Impressions: CONCLUSION: 1. Spinal cord has a normal appearance. There are no findings to indicate mult iple sclerosis involvement of the thoracic spinal cord. 2. Mild degenerative disc disease at T11-T12. No canal stenosis or neural fora chelsie narrowing is present. Head Magnetic Resonance Angiography 08/16/17 0000 Signed Impressions: CONCLUSION: No intracranial arterial vascular abnormality is identified. Cervical Spine MRI 08/16/17 0000 Signed Impressions: CONCLUSION: 1. No cord signal abnormalities to suggest multiple sclerosis. 2. Degenerative disc disease most severe at C5-6-7 where there is mild impress ion on the anterior surface of the cord. Slight reversal of normal cervical nohemy dosis. Brain MRI 08/16/17 Signed Impressions: CONCLUSION: 1. Multifocal areas of abnormal edema which do not demonstrate features to ind icate recent ischemia. The abnormal areas include the anterior right temporal l obe, right thalamus, left parietal region, and left roslyn. Etiology is uncertain . Encephalitis from uncertain etiology should be a consideration. In general, c onsider infectious or inflammatory conditions. 2. There are a few scattered periventricular and subcortical areas of white ma tter signal change most likely representing chronic microvascular ischemia in t hese areas. Head CT 08/15/17 Signed Impressions: CONCLUSION: 1. No acute intracranial abnormalities. Chest X-Ray 08/15/17 Signed Impressions: CONCLUSION: Minimal linear scarring or atelectasis left base. Otherwise no acute findings. Objective Remarks GENERAL: Well-nourished, well-developed middle aged female patient in [facility]. SKIN: Warm and dry. No rash. HEENT: Normocephalic. Atraumatic. Pupils equal and round. EOMI. Left homonymous hemianopsia. Mucous membranes pink and moist. NECK: Supple. Trachea midline. Nontender. CARDIOVASCULAR: Regular rate and rhythm. No murmur appreciated. RESPIRATORY: No accessory muscle use. Clear to auscultation. Breath sounds equal bilaterally. GASTROINTESTINAL: Abdomen soft, non-tender, nondistended. Normoactive bowel sounds x4. MUSCULOSKELETAL: No obvious deformities. Extremities without clubbing, cyanosis , or edema. NEUROLOGICAL: Awake and alert. No obvious cranial nerve deficits. Motor grossly within normal limits. Moving all extremities spontaneously. Normal speech. PSYCHIATRIC: Appropriate mood and affect; insight and judgment normal. Medications and IVs Current Medications Medications (Trade) Dose Ordered Sig/Madeleine Route Start Time Stop Time Status Last Admin (NS Flush) 2 ml BID IV FLUSH 08/16/17 09:00 08/16/17 12:51 (NS Flush) 2 ml UNSCH PRN IV FLUSH 08/15/17 23:45 (Vasotec Inj) 1.25 mg Q4H PRN IV PUSH 08/15/17 23:45 (NovoLOG SUPPLEMENTAL SCALE) 1 ACHS SQ 08/16/17 08:00 08/18/17 20:29 (D50w (Vial) Inj) 50 ml UNSCH PRN IV PUSH 08/15/17 23:45 (Glucagon Inj) 1 mg UNSCH PRN OTHER 08/15/17 23:45 (Xanax) 0.25 mg Q4H PRN PO 08/15/17 23:45 08/19/17 04:49 (Tylenol) 650 mg Q6H PRN PO 08/16/17 00:15 08/19/17 04:50 ([place] 5-325 Mg) 1 tab Q4H PRN PO 08/16/17 00:15 08/19/17 12:27 (Morphine Inj) 2 mg Q3H PRN IV PUSH 08/16/17 00:15 (Marychuy-Colace) 1 tab BID PO 08/16/17 09:00 08/19/17 08:55 (Milk Of Magnesia Liq) 30 ml Q12H PRN PO 08/16/17 00:15 (Senokot) 17.2 mg Q12H PRN PO 08/16/17 00:15 (Dulcolax Supp) 10 mg DAILY PRN RECTAL 08/16/17 00:15 (Lactulose Liq) 30 ml DAILY PRN PO 08/16/17 00:15 (Lipitor) 20 mg HS PO 08/16/17 00:30 08/18/17 20:29 Ceftriaxone Sodium 2000 mg/ Sodium Chloride 100 ml @ 200 mls/hr Q12H IV 08/16/17 18:00 08/19/17 06:09 Acyclovir Sodium 700 mg/Sodium Chloride 100 ml @ 100 mls/hr Q8H IV 08/16/17 17:00 08/19/17 08:55 (Lactinex) 1 tab TID PO 08/16/17 18:00 08/19/17 12:29 Methylprednisolone Sodium Succinate 500 mg/Sodium Chloride 100 ml @ 200 mls/hr Q12H IV 08/17/17 16:00 08/19/17 03:31 (Protonix) 20 mg DAILY PO 08/17/17 17:00 08/19/17 08:55 A/P Problem List: (1) Vision loss ICD Code: H54.7 - Unspecified visual loss Status: Acute (2) Hypokalemia ICD Code: E87.6 - Hypokalemia (3) HTN (hypertension) ICD Code: I10 - Essential (primary) hypertension Status: Chronic Assessment and Plan 62-year-old female admitted secondary to peripheral vision loss Progressive peripheral vision loss, Possible CVA: acute -Head CT reviewed, no acute findings -Brain MRI with multifocal areas of abnormal edema; uncertain etiology, concerning for an infectious vs inflammatory process (pituitary normal). -head MRA unremarkable neg but Thoracic spine w no finding suggestive of MS. -Neurology consulted -S/p LP, CSF studies pending, so far unremarkable -Continue on high dose IV solu-medrol. -HIV non reactive, RPR non reactive. Lyme antibodies, anti-NMO antibodies, pathology pending -PT OT eval, no PT needed at discharge -Continue statin -ID also following. Continue on empiric IV rocephin and acyclovir -Ophthalmology consulted, appreciate input Hypertension: BP stable -Follow blood pressures, currently well-controlled, no on antihypertensives Hypokalemia: acute -Monitor and replace as needed -Given po KCl replacement -Monitor BMP DVT prophylaxis: SCDs Discharge Planning Discharge pending further work up and further clinical improvement. Problem Qualifiers (1) HTN (hypertension): Qualified Codes: I10 - Essential (primary) hypertension Gayla Brown PA-C Aug 19, 2017 13:39
[2017-08-19] MEDS: ATORVASTATIN 20 MG TAB PO SCH (20:23)
[2017-08-20] VITALS (9 sets, daily range): BP systolic 140–166; BP diastolic 82–91; PULSE 69–81; RESP 16–18; TEMP 97.4–97.9; O2SAT 95–97
[2017-08-20] MEDS: ACETAMINOPHEN/HYDROcodone 325 MG/5 MG TAB PO PRN ×5 (00:34→18:34)
[2017-08-20] MEDS: ACYCLOVIR INJ 700 MG in SODIUM CHLORIDE 0.9% INJ 100 ML IV SCH ×3 (00:35→17:21)
[2017-08-20 02:36] LABS: BASOPHIL % 0.1 % (0.0-2.0); HEMATOCRIT 35.8 % (35.0-46.0); HEMOGLOBIN 12.1 GM/DL (11.6-15.3); LYMPH % 8.2 % (9.0-44.0); LYMPHOCYTE # 1.2 TH/MM3 (1.0-4.8); MEAN CORPUSCULAR HEMOGLOBIN 29.8 PG (27.0-34.0); MEAN CORPUSCULAR HGB CONC 33.9 % (32.0-36.0); MEAN PLATELET VOLUME 7.7 FL (7.0-11.0); MONO % 3.4 % (0.0-8.0); MONOCYTE # 0.5 TH/MM3 (0-0.9); NEUT % 88.3 % (16.0-70.0); PLATELET COUNT 311 TH/MM3 (150-450); RED BLOOD COUNT 4.07 MIL/MM3 (4.00-5.30); RED CELL DISTRIBUTION WIDTH 13.7 % (11.6-17.2); WHITE BLOOD COUNT 14.7 TH/MM3 (4.0-11.0)
[2017-08-20 02:46] LABS: BICARBONATE 22.7 MEQ/L (21.0-32.0); CALCIUM 8.3 MG/DL (8.5-10.1); CREATININE 0.7 MG/DL (0.50-1.00); MAGNESIUM 2.2 MG/DL (1.5-2.5)
[2017-08-20] MEDS ORDERED: POTASSIUM CHLORIDE 10 MEQ CONTROLLED RELEASE TAB PO ONE (03:30)
[2017-08-20] MEDS: methylPREDNISolone SO SUCC INJ 500 MG in SODIUM CHLORIDE 0.9% INJ 100 ML IV SCH ×2 (03:39→16:00)
[2017-08-20 03:52] LABS: TREPONEMA PALLIDUM ABS CSF NON-REACTIVE (NON-REACTVE)
[2017-08-20] MEDS: ALPRAZolam 0.25 MG TAB PO PRN ×3 (04:17→18:35)
[2017-08-20] MEDS: cefTRIAXone INJ 2,000 MG in SODIUM CHLORIDE 0.9% INJ 100 ML IV SCH ×2 (06:07→18:34)
[2017-08-20] MEDS ORDERED: POTASSIUM CHLORIDE 20 MEQ CONTROLLED RELEASE TAB PO ONE (08:00)
[2017-08-20] MEDS: INSULIN ASPART SUPPLEMENTAL SCALE SQ SCH ×4 (08:00→21:00)
[2017-08-20] MEDS: LACTOBACILLUS ACIDOPHILUS TAB PO SCH ×3 (08:48→17:20)
[2017-08-20] MEDS: DOCUSATE SODIUM 50 MG/SENNA 8.6 MG TAB PO SCH ×2 (08:48→21:07)
[2017-08-20] MEDS: PANTOPRAZOLE SOD 20 MG DELAYED RELEASE TAB PO SCH (08:49)
[2017-08-20] MEDS: SODIUM CHLORIDE 0.9% FLUSH 10 ML FLUSH IV FLUSH SCH ×2 (08:49→21:07)
--- NOTE | 2017-08-20 09:06 | HHI.PR ---
Review/Management Diagnosis/Plan: (1) Vision loss ICD Codes: H54.7 - Unspecified visual loss Status: Acute Plan: MRI brain scan reviewed No evidence of acute stroke however multiple areas of white matter changes so appear to be small vessel disease other may be demyelinating lesions versus encephalitis although is afebrile and lacks constitutional symptoms Risk factors include chronic hypertension, tobacco use MRI C-spine and T-spine did not show any cord lesion Recommendations CSF studies; pending; MS panel pending No difference on IV steroids as far as her vision symptoms; continue for now HIV, RPR, Lyme antibodies, anti-NMO antibodies, anti-mag antibodies; pending PT OT eval Blood pressure control Tobacco cessation Follow exam (2) HTN (hypertension) ICD Codes: I10 - Essential (primary) hypertension Status: Chronic Plan: Goal less than 120/80 On antihypertensives (3) Tobacco use ICD Codes: Z72.0 - Tobacco use Status: Chronic Plan: Cessation discussed with the patient Subjective Subjective Comments No acute events reported No headache No chest pain No dyspnea Active Medications Current Medications Medications (Trade) Dose Ordered Sig/Madeleine Route Start Time Stop Time Status Last Admin (NS Flush) 2 ml BID IV FLUSH 08/16/17 09:00 08/19/17 20:23 (NS Flush) 2 ml UNSCH PRN IV FLUSH 08/15/17 23:45 (Vasotec Inj) 1.25 mg Q4H PRN IV PUSH 08/15/17 23:45 (NovoLOG SUPPLEMENTAL SCALE) 1 ACHS SQ 08/16/17 08:00 08/18/17 20:29 (D50w (Vial) Inj) 50 ml UNSCH PRN IV PUSH 08/15/17 23:45 (Glucagon Inj) 1 mg UNSCH PRN OTHER 08/15/17 23:45 (Xanax) 0.25 mg Q4H PRN PO 08/15/17 23:45 08/20/17 04:17 (Tylenol) 650 mg Q6H PRN PO 08/16/17 00:15 08/19/17 04:50 ([place] 5-325 Mg) 1 tab Q4H PRN PO 08/16/17 00:15 08/20/17 04:17 (Morphine Inj) 2 mg Q3H PRN IV PUSH 08/16/17 00:15 (Marychuy-Colace) 1 tab BID PO 08/16/17 09:00 08/20/17 08:48 (Milk Of Magnesia Liq) 30 ml Q12H PRN PO 08/16/17 00:15 (Senokot) 17.2 mg Q12H PRN PO 08/16/17 00:15 (Dulcolax Supp) 10 mg DAILY PRN RECTAL 08/16/17 00:15 (Lactulose Liq) 30 ml DAILY PRN PO 08/16/17 00:15 (Lipitor) 20 mg HS PO 08/16/17 00:30 08/19/17 20:23 Ceftriaxone Sodium 2000 mg/ Sodium Chloride 100 ml @ 200 mls/hr Q12H IV 08/16/17 18:00 08/20/17 06:07 Acyclovir Sodium 700 mg/Sodium Chloride 100 ml @ 100 mls/hr Q8H IV 08/16/17 17:00 08/20/17 08:49 (Lactinex) 1 tab TID PO 08/16/17 18:00 08/20/17 08:48 Methylprednisolone Sodium Succinate 500 mg/Sodium Chloride 100 ml @ 200 mls/hr Q12H IV 08/17/17 16:00 08/20/17 03:39 (Protonix) 20 mg DAILY PO 08/17/17 17:00 08/20/17 08:49 Allergies Allergies Coded Allergies No Known Allergies (Verified Allergy, Severe, 08/26/05) Review of Systems All other ROS: ROS reviewed as documented in chart Exam I&O / VS Vital Signs Date Time Temp Pulse Resp B/P (MAP) Pulse Ox O2 Delivery O2 Flow Rate FiO2 08/20/17 08:00 97.6 76 18 166/89 (114) 96 08/20/17 04:30 97.7 81 16 159/83 (108) 95 08/20/17 04:00 78 08/20/17 01:33 76 08/20/17 00:25 97.9 76 16 149/86 (107) 96 08/20/17 00:00 72 08/19/17 20:43 74 08/19/17 20:10 97.5 80 16 129/75 (93) 95 08/19/17 16:00 97.5 95 16 153/88 (109) 93 08/19/17 12:00 98.0 103 16 148/91 (110) 95 General: Alert and Oriented, No acute distress Eye: PERRL, EOMI Respiratory: Non-labored respirations, BS equal, Symmetrical expansion, No chest wall tenderness Cardiology: Normal rate, No edema Musculoskeletal: ROM Neurologic: Alert, Oriented, Normal sensory, Normal motor Psychiatric: Cooperative, Appropriate mood & affect, Normal judgement, Non- suicidal Exam Comments Awake alert oriented 3, pleasant no aphasia follows motor request, articulate speech extraocular movements intact left curvilinear homonymous hemianopsia no facial asymmetry tongue midline strength 5 out of 5 her lower limbs no pronator drift no dysmetria mild lower extremity hyperreflexia, no clonus plantarflex response Objective Micro and Labs Laboratory Tests Test 08/20/17 02:12 White Blood Count 14.7 Red Blood Count 4.07 Hemoglobin 12.1 Hematocrit 35.8 Mean Corpuscular Volume 88.0 Mean Corpuscular Hemoglobin 29.8 Mean Corpuscular Hemoglobin Concent 33.9 Red Cell Distribution Width 13.7 Platelet Count 311 Mean Platelet Volume 7.7 Neutrophils (%) (Auto) 88.3 Lymphocytes (%) (Auto) 8.2 Monocytes (%) (Auto) 3.4 Eosinophils (%) (Auto) 0.0 Basophils (%) (Auto) 0.1 Neutrophils # (Auto) 13.0 Lymphocytes # (Auto) 1.2 Monocytes # (Auto) 0.5 Eosinophils # (Auto) 0.0 Basophils # (Auto) 0.0 CBC Comment AUTO DIFF Differential Comment AUTO DIFF CONFIRMED Platelet Estimate NORMAL Platelet Morphology Comment NORMAL Red Cell Morphology Comment NORMAL Blood Urea Nitrogen 17 Creatinine 0.70 Random Glucose 112 Calcium Level 8.3 Magnesium Level 2.2 Sodium Level 146 Potassium Level 3.2 Chloride Level 110 Carbon Dioxide Level 22.7 Anion Gap 13 Estimat Glomerular Filtration Rate 85 Date/Time Source Procedure Growth Status 08/18/17 08:46 Cerebral Spinal Fluid Lumbar Puncture Gram Stain - Final Resulted 08/18/17 08:46 Cerebral Spinal Fluid Lumbar Puncture CSF Culture - Preliminary NO GROWTH IN 24 HOURS. Resulted Problem Qualifiers (1) HTN (hypertension): Qualified Codes: I10 - Essential (primary) hypertension Lebron Lemus MD Aug 20, 2017 09:06
--- NOTE | 2017-08-20 10:48 | HHI.PR ---
Subjective Remarks Patient states that her vision has not worsened nor has it improved. Still have difficulty with vision loss over the left peripheral vision field. No signs of headaches, no difficulty with swallowing. No focalized weakness or numbness. No difficulty with speech. Objective Vitals Vital Signs Date Time Temp Pulse Resp B/P (MAP) Pulse Ox O2 Delivery O2 Flow Rate FiO2 08/20/17 08:00 97.6 76 18 166/89 (114) 96 08/20/17 04:30 97.7 81 16 159/83 (108) 95 08/20/17 04:00 78 08/20/17 01:33 76 08/20/17 00:25 97.9 76 16 149/86 (107) 96 08/20/17 00:00 72 08/19/17 20:43 74 08/19/17 20:10 97.5 80 16 129/75 (93) 95 08/19/17 16:00 97.5 95 16 153/88 (109) 93 08/19/17 12:00 98.0 103 16 148/91 (110) 95 I/O 08/19/17 08/19/17 08/19/17 08/20/17 08/20/17 08/20/17 07:00 15:00 23:00 07:00 15:00 23:00 Intake Total 720 ml 820 ml Balance 720 ml 820 ml Intake Oral 720 ml 720 ml IV Total 100 ml # Voids 5 6 # Bowel Movements 0 0 Result Diagram: 08/20/17 0212 08/20/17 0212 Objective Remarks GENERAL: This is a well-nourished, well-developed patient, in no apparent distress. HEENT: EOMI, left vision peripheral field deficit CARDIOVASCULAR: Regular rate and rhythm without murmurs, gallops, or rubs. RESPIRATORY: Clear to auscultation. Breath sounds equal bilaterally. No wheezes , rales, or rhonchi. MUSCULOSKELETAL: Extremities without clubbing, cyanosis, or edema. NEURO: Alert & Oriented x4 to person, place, time, situation. Moves all ext x4 A/P Problem List: (1) Vision loss ICD Code: H54.7 - Unspecified visual loss Status: Acute (2) Hypokalemia ICD Code: E87.6 - Hypokalemia (3) HTN (hypertension) ICD Code: I10 - Essential (primary) hypertension Status: Chronic Assessment and Plan 62-year-old female admitted secondary to peripheral vision loss Progressive peripheral vision loss, differential diagnosis of the demyelination versus encephalitis; stroke has been ruled out Patient states symptom has not improved nor worsened -Head CT reviewed, no acute findings -Brain MRI with multifocal areas of abnormal edema; uncertain etiology, concerning for an infectious vs inflammatory process (pituitary normal). -head MRA unremarkable neg but Thoracic spine w no finding suggestive of MS. -Neurology consulted, appreciate Dr. Lemus's recommendations -S/p LP, CSF studies pending, so far unremarkable -Continue on high dose IV solu-medrol. -HIV non reactive, RPR non reactive. Lyme antibodies, anti-NMO antibodies, pathology pending, MS panel currently pending -PT OT evaluation, no PT needed at discharge -Continue statin -ID also following. Continue on empiric IV rocephin and acyclovir -Ophthalmology, Dr. Nelson consulted, appreciate input and recommendations Hypertension: BP stable -Follow blood pressures, currently well-controlled, no on antihypertensives Hypokalemia: acute -Monitor and replace as needed -Given po KCl replacement -Monitor BMP DVT prophylaxis: SCDs Discharge Planning Home when cleared by neurology Problem Qualifiers (1) HTN (hypertension): Qualified Codes: I10 - Essential (primary) hypertension Ritika Olvera MD Aug 20, 2017 10:48
[2017-08-20 19:51] LABS: CSF CRYPTOCOCCUS ANTIGEN NOT DETECTED (NEGATIVE)
[2017-08-20] MEDS: ATORVASTATIN 20 MG TAB PO SCH (21:07)
[2017-08-21] VITALS (9 sets, daily range): BP systolic 148–177; BP diastolic 76–93; PULSE 68–95; RESP 16–20; TEMP 97.4–98.2; O2SAT 93–95
[2017-08-21] MEDS: ACYCLOVIR INJ 700 MG in SODIUM CHLORIDE 0.9% INJ 100 ML IV SCH ×2 (00:43→09:10)
[2017-08-21] MEDS: ALPRAZolam 0.25 MG TAB PO PRN ×3 (00:53→15:03)
[2017-08-21] MEDS: ACETAMINOPHEN/HYDROcodone 325 MG/5 MG TAB PO PRN ×3 (00:53→15:04)
[2017-08-21] MEDS: methylPREDNISolone SO SUCC INJ 500 MG in SODIUM CHLORIDE 0.9% INJ 100 ML IV SCH ×2 (04:31→15:03)
[2017-08-21] MEDS: cefTRIAXone INJ 2,000 MG in SODIUM CHLORIDE 0.9% INJ 100 ML IV SCH ×2 (04:31→17:55)
[2017-08-21 07:50] LABS: BICARBONATE 22.2 MEQ/L (21.0-32.0); CALCIUM 8.3 MG/DL (8.5-10.1); CREATININE 0.69 MG/DL (0.50-1.00)
[2017-08-21] MEDS: INSULIN ASPART SUPPLEMENTAL SCALE SQ SCH ×4 (08:00→20:00)
[2017-08-21] MEDS: SODIUM CHLORIDE 0.9% FLUSH 10 ML FLUSH IV FLUSH SCH ×2 (09:00→20:05)
[2017-08-21 09:06] LABS: CSF CRYPTOCOCCUS AG CONF ND (NOT DETECTD)
[2017-08-21] MEDS: LACTOBACILLUS ACIDOPHILUS TAB PO SCH ×3 (09:09→17:56)
[2017-08-21] MEDS: PANTOPRAZOLE SOD 20 MG DELAYED RELEASE TAB PO SCH (09:10)
[2017-08-21] MEDS: DOCUSATE SODIUM 50 MG/SENNA 8.6 MG TAB PO SCH ×2 (09:10→20:05)
--- NOTE | 2017-08-21 09:55 | HHI.PR ---
Review/Management Diagnosis/Plan: (1) Vision loss ICD Codes: H54.7 - Unspecified visual loss Status: Acute Plan: MRI brain scan reviewed No evidence of acute stroke however multiple areas of white matter changes so appear to be small vessel disease other may be demyelinating lesions versus encephalitis although is afebrile and lacks constitutional symptoms Risk factors include chronic hypertension, tobacco use MRI C-spine and T-spine did not show any cord lesion Recommendations CSF studie; MS panel pending repeat mr brain could consider trial of ivig/plex HIV, RPR, Lyme antibodies, anti-NMO antibodies, anti-mag antibodies; pending PT OT eval Blood pressure control Tobacco cessation Follow exam (2) HTN (hypertension) ICD Codes: I10 - Essential (primary) hypertension Status: Chronic Plan: Goal less than 120/80 On antihypertensives (3) Tobacco use ICD Codes: Z72.0 - Tobacco use Status: Chronic Plan: Cessation discussed with the patient Subjective Subjective Comments No acute events reported No headache No chest pain No dyspnea Active Medications Current Medications Medications (Trade) Dose Ordered Sig/Madeleine Route Start Time Stop Time Status Last Admin (NS Flush) 2 ml BID IV FLUSH 08/16/17 09:00 08/20/17 21:07 (NS Flush) 2 ml UNSCH PRN IV FLUSH 08/15/17 23:45 (Vasotec Inj) 1.25 mg Q4H PRN IV PUSH 08/15/17 23:45 (NovoLOG SUPPLEMENTAL SCALE) 1 ACHS SQ 08/16/17 08:00 08/18/17 20:29 (D50w (Vial) Inj) 50 ml UNSCH PRN IV PUSH 08/15/17 23:45 (Glucagon Inj) 1 mg UNSCH PRN OTHER 08/15/17 23:45 (Xanax) 0.25 mg Q4H PRN PO 08/15/17 23:45 08/21/17 09:10 (Tylenol) 650 mg Q6H PRN PO 08/16/17 00:15 08/19/17 04:50 ([place] 5-325 Mg) 1 tab Q4H PRN PO 08/16/17 00:15 08/21/17 09:09 (Morphine Inj) 2 mg Q3H PRN IV PUSH 08/16/17 00:15 (Marychuy-Colace) 1 tab BID PO 08/16/17 09:00 08/21/17 09:10 (Milk Of Magnesia Liq) 30 ml Q12H PRN PO 08/16/17 00:15 (Senokot) 17.2 mg Q12H PRN PO 08/16/17 00:15 (Dulcolax Supp) 10 mg DAILY PRN RECTAL 08/16/17 00:15 (Lactulose Liq) 30 ml DAILY PRN PO 08/16/17 00:15 (Lipitor) 20 mg HS PO 08/16/17 00:30 08/20/17 21:07 Ceftriaxone Sodium 2000 mg/ Sodium Chloride 100 ml @ 200 mls/hr Q12H IV 08/16/17 18:00 08/21/17 04:31 Acyclovir Sodium 700 mg/Sodium Chloride 100 ml @ 100 mls/hr Q8H IV 08/16/17 17:00 08/21/17 09:10 (Lactinex) 1 tab TID PO 08/16/17 18:00 08/21/17 09:09 Methylprednisolone Sodium Succinate 500 mg/Sodium Chloride 100 ml @ 200 mls/hr Q12H IV 08/17/17 16:00 08/21/17 21:00 08/21/17 04:31 (Protonix) 20 mg DAILY PO 08/17/17 17:00 08/21/17 09:10 Allergies Allergies Coded Allergies No Known Allergies (Verified Allergy, Severe, 08/26/05) Review of Systems All other ROS: ROS reviewed as documented in chart Exam I&O / VS Vital Signs Date Time Temp Pulse Resp B/P (MAP) Pulse Ox O2 Delivery O2 Flow Rate FiO2 08/21/17 08:06 97.8 73 17 158/88 (111) 95 08/21/17 04:00 73 08/21/17 04:00 98.1 76 18 156/80 (105) 94 08/21/17 00:01 97.8 69 17 153/87 (109) 95 08/21/17 00:00 68 08/20/17 20:30 69 08/20/17 20:00 97.4 76 18 140/82 (101) 95 08/20/17 16:00 08/20/17 12:00 97.4 79 18 161/91 (114) 97 General: Alert and Oriented, No acute distress Eye: PERRL, EOMI Respiratory: Non-labored respirations, BS equal, Symmetrical expansion, No chest wall tenderness Cardiology: Normal rate, No edema Musculoskeletal: ROM Neurologic: Alert, Oriented, Normal sensory, Normal motor Psychiatric: Cooperative, Appropriate mood & affect, Normal judgement, Non- suicidal Exam Comments Awake alert oriented 3, pleasant , articulate speech extraocular movements intact left curvilinear homonymous hemianopsia no facial asymmetry tongue midline strength 5 out of 5 her lower limbs no pronator drift no dysmetria mild lower extremity hyperreflexia, Objective Micro and Labs Laboratory Tests Test 08/21/17 06:40 Blood Urea Nitrogen 21 Creatinine 0.69 Random Glucose 99 Calcium Level 8.3 Sodium Level 147 Potassium Level 3.4 Chloride Level 110 Carbon Dioxide Level 22.2 Anion Gap 15 Estimat Glomerular Filtration Rate 87 Date/Time Source Procedure Growth Status 08/18/17 08:46 Cerebral Spinal Fluid Lumbar Puncture Gram Stain - Final Resulted 08/18/17 08:46 Cerebral Spinal Fluid Lumbar Puncture CSF Culture - Preliminary NO GROWTH IN 48 HOURS. Resulted Problem Qualifiers (1) HTN (hypertension): Qualified Codes: I10 - Essential (primary) hypertension Lebron Lemus MD Aug 21, 2017 09:55
--- NOTE | 2017-08-21 10:35 | HHI.PR ---
Subjective Remarks Reports no changes in her vision. It is not worse however it has not improved. No complaints of headaches. No weakness or numbness. Objective Vitals Vital Signs Date Time Temp Pulse Resp B/P (MAP) Pulse Ox O2 Delivery O2 Flow Rate FiO2 08/21/17 08:06 97.8 73 17 158/88 (111) 95 08/21/17 04:00 73 08/21/17 04:00 98.1 76 18 156/80 (105) 94 08/21/17 00:01 97.8 69 17 153/87 (109) 95 08/21/17 00:00 68 08/20/17 20:30 69 08/20/17 20:00 97.4 76 18 140/82 (101) 95 08/20/17 16:00 08/20/17 12:00 97.4 79 18 161/91 (114) 97 I/O 08/20/17 08/20/17 08/20/17 08/21/17 08/21/17 08/21/17 07:00 15:00 23:00 07:00 15:00 23:00 Intake Total 820 ml 1300 ml Balance 820 ml 1300 ml Intake Oral 720 ml 1300 ml IV Total 100 ml # Voids 6 4 3 # Bowel Movements 0 Result Diagram: 08/20/17 0212 08/21/17 0640 Objective Remarks GENERAL: This is a well-nourished, well-developed patient, in no apparent distress. HEENT: EOMI, left vision peripheral field deficit CARDIOVASCULAR: Regular rate and rhythm without murmurs, gallops, or rubs. RESPIRATORY: Clear to auscultation. Breath sounds equal bilaterally. No wheezes , rales, or rhonchi. MUSCULOSKELETAL: Extremities without clubbing, cyanosis, or edema. NEURO: Alert & Oriented x4 to person, place, time, situation. Moves all ext x4 A/P Problem List: (1) Vision loss ICD Code: H54.7 - Unspecified visual loss Status: Acute (2) Hypokalemia ICD Code: E87.6 - Hypokalemia (3) HTN (hypertension) ICD Code: I10 - Essential (primary) hypertension Status: Chronic Assessment and Plan 62-year-old female admitted secondary to peripheral vision loss Progressive peripheral vision loss, differential diagnosis of the demyelination versus encephalitis; stroke has been ruled out Patient states symptom has not improved nor worsened -Head CT reviewed, no acute findings -Brain MRI with multifocal areas of abnormal edema; uncertain etiology, concerning for an infectious vs inflammatory process (pituitary normal). -head MRA unremarkable neg but Thoracic spine w no finding suggestive of MS. -Neurology consulted, appreciate Dr. Lemus's recommendations. We will repeat MRI of the brain today -S/p LP, CSF studies pending, so far unremarkable -Complete day 5 of high dose IV solu-medrol. -HIV non reactive, RPR non reactive. Lyme antibodies, anti-NMO antibodies, pathology pending, MS panel currently pending -PT OT evaluation, no PT needed at discharge -Continue statin -ID also following. Continue on empiric IV rocephin and dc acyclovir due to HSV negative -Ophthalmology, Dr. Nelson consulted, appreciate input and recommendations Hypertension: BP stable -Follow blood pressures, currently well-controlled, no on antihypertensives Hypokalemia: acute -Monitor and replace as needed -Given po KCl replacement -Monitor BMP DVT prophylaxis: SCDs Discharge Planning Home when cleared by neurology Problem Qualifiers (1) HTN (hypertension): Qualified Codes: I10 - Essential (primary) hypertension Ritika Olvera MD Aug 21, 2017 10:35
--- NOTE | 2017-08-21 15:29 | HHI.IDPN ---
Note Infectious Disease Note Patient states that her vision has not improved. No new symptoms. No fever. No nausea or vomiting. CSF studies: Lyme antibody pending, cryptococcal antigen negative, HSV negative. Patient admitted with visual loss. MRI of the brain showed multifocal areas of abnormal edema, which do not demonstrate features to indicate recent ischemia. Abnormal areas include anterior right temporal lobe, right thalamus, left parietal region and left roslyn. There also noted to be a few scattered periventricular and subcortical areas of white matter signal change, likely representing chronic microvascular ischemia in these areas. The patient has had no neck stiffness. She denies weight loss. No prior history of stroke. PAST MEDICAL HISTORY: Hypertension, cholelithiasis, breast augmentation, hysterectomy, cholecystectomy. She reports having a heart murmur in the past. ALLERGIES: NO KNOWN DRUG ALLERGIES. MEDICATIONS: Current Medications Medications (Trade) Dose Ordered Sig/Madeleine Route PRN Reason Start Time Stop Time Status Last Admin Dose Admin Sodium Chloride (NS Flush) 2 ml BID IV FLUSH 08/16/17 09:00 08/20/17 21:07 Sodium Chloride (NS Flush) 2 ml UNSCH PRN IV FLUSH FLUSH AFTER USING IV ACCESS 08/15/17 23:45 Enalaprilat (Vasotec Inj) 1.25 mg Q4H PRN IV PUSH For SBP > 220 or DBP > 120 08/15/17 23:45 Insulin Aspart (NovoLOG SUPPLEMENTAL SCALE) 1 ACHS SQ 08/16/17 08:00 08/18/17 20:29 Dextrose (D50w (Vial) Inj) 50 ml UNSCH PRN IV PUSH HYPOGLYCEMIA-SEE COMMENTS 08/15/17 23:45 Glucagon (Glucagon Inj) 1 mg UNSCH PRN OTHER HYPOGLYCEMIA-SEE COMMENTS 08/15/17 23:45 Alprazolam (Xanax) 0.25 mg Q4H PRN PO ANXIETY 08/15/17 23:45 08/21/17 15:03 Acetaminophen (Tylenol) 650 mg Q6H PRN PO FEVER/PAIN SCALE 1 TO 2 08/16/17 00:15 08/19/17 04:50 Acetaminophen/ Hydrocodone Bitart ([place] 5-325 Mg) 1 tab Q4H PRN PO PAIN SCALE 3 TO 5 08/16/17 00:15 08/21/17 15:04 Morphine Sulfate (Morphine Inj) 2 mg Q3H PRN IV PUSH Pain 6-10 08/16/17 00:15 Senna/Docusate Sodium ([place]-Colace) 1 tab BID PO 08/16/17 09:00 08/21/17 09:10 Magnesium Hydroxide (Milk Of Magnesia Liq) 30 ml Q12H PRN PO Mild constipation 08/16/17 00:15 Sennosides (Senokot) 17.2 mg Q12H PRN PO Moderate constipation 08/16/17 00:15 Bisacodyl (Dulcolax Supp) 10 mg DAILY PRN RECTAL SEVERE CONSITIPATION 08/16/17 00:15 Lactulose (Lactulose Liq) 30 ml DAILY PRN PO SEVERE CONSITIPATION 08/16/17 00:15 Atorvastatin Calcium (Lipitor) 20 mg HS PO 08/16/17 00:30 08/20/17 21:07 Ceftriaxone Sodium 2000 mg/ Sodium Chloride 100 ml @ 200 mls/hr Q12H IV 08/16/17 18:00 08/21/17 04:31 Lactobacillus Acidophilus (Lactinex) 1 tab TID PO 08/16/17 18:00 08/21/17 12:12 Methylprednisolone Sodium Succinate 500 mg/Sodium Chloride 100 ml @ 200 mls/hr Q12H IV 08/17/17 16:00 08/21/17 21:00 08/21/17 15:03 Pantoprazole Sodium (Protonix) 20 mg DAILY PO 08/17/17 17:00 08/21/17 09:10 Objective: Vital Signs Date Time Temp Pulse Resp B/P (MAP) Pulse Ox O2 Delivery O2 Flow Rate FiO2 08/21/17 15:01 98.2 95 16 154/93 (113) 93 08/21/17 12:11 98.1 92 18 148/76 (100) 95 08/21/17 08:06 97.8 73 17 158/88 (111) 95 08/21/17 04:00 73 08/21/17 04:00 98.1 76 18 156/80 (105) 94 08/21/17 00:01 97.8 69 17 153/87 (109) 95 08/21/17 00:00 68 08/20/17 20:30 69 08/20/17 20:00 97.4 76 18 140/82 (101) 95 08/20/17 16:00 Laboratory Tests Test 08/20/17 02:12 White Blood Count 14.7 TH/MM3 Red Blood Count 4.07 MIL/MM3 Hemoglobin 12.1 GM/DL Hematocrit 35.8 % Mean Corpuscular Volume 88.0 FL Mean Corpuscular Hemoglobin 29.8 PG Mean Corpuscular Hemoglobin Concent 33.9 % Red Cell Distribution Width 13.7 % Platelet Count 311 TH/MM3 Mean Platelet Volume 7.7 FL Neutrophils (%) (Auto) 88.3 % Lymphocytes (%) (Auto) 8.2 % Monocytes (%) (Auto) 3.4 % Eosinophils (%) (Auto) 0.0 % Basophils (%) (Auto) 0.1 % Neutrophils # (Auto) 13.0 TH/MM3 Lymphocytes # (Auto) 1.2 TH/MM3 Monocytes # (Auto) 0.5 TH/MM3 Eosinophils # (Auto) 0.0 TH/MM3 Basophils # (Auto) 0.0 TH/MM3 CBC Comment AUTO DIFF Differential Comment AUTO DIFF CONFIRMED Platelet Estimate NORMAL Platelet Morphology Comment NORMAL Red Cell Morphology Comment NORMAL Laboratory Tests Test 08/20/17 02:12 08/21/17 06:40 Blood Urea Nitrogen 17 MG/DL 21 MG/DL Creatinine 0.70 MG/DL 0.69 MG/DL Random Glucose 112 MG/DL 99 MG/DL Calcium Level 8.3 MG/DL 8.3 MG/DL Magnesium Level 2.2 MG/DL Sodium Level 146 MEQ/L 147 MEQ/L Potassium Level 3.2 MEQ/L 3.4 MEQ/L Chloride Level 110 MEQ/L 110 MEQ/L Carbon Dioxide Level 22.7 MEQ/L 22.2 MEQ/L Anion Gap 13 MEQ/L 15 MEQ/L Estimat Glomerular Filtration Rate 85 ML/MIN 87 ML/MIN Imaging: Lumbar Puncture Fluoroscopy 08/18/17 0000 Signed Impressions: CONCLUSION: 1. Uncomplicated fluoroscopically guided lumbar puncture. Thoracic Spine MRI 08/17/17 0000 Signed Impressions: CONCLUSION: 1. Spinal cord has a normal appearance. There are no findings to indicate mult iple sclerosis involvement of the thoracic spinal cord. 2. Mild degenerative disc disease at T11-T12. No canal stenosis or neural fora chelsie narrowing is present. Head Magnetic Resonance Angiography 08/16/17 0000 Signed Impressions: CONCLUSION: No intracranial arterial vascular abnormality is identified. Cervical Spine MRI 6/16/18 0000 Signed Impressions: CONCLUSION: 1. No cord signal abnormalities to suggest multiple sclerosis. 2. Degenerative disc disease most severe at C5-6-7 where there is mild impress ion on the anterior surface of the cord. Slight reversal of normal cervical nohemy dosis. Brain MRI 08/16/17 Signed Impressions: CONCLUSION: 1. Multifocal areas of abnormal edema which do not demonstrate features to ind icate recent ischemia. The abnormal areas include the anterior right temporal l obe, right thalamus, left parietal region, and left roslyn. Etiology is uncertain . Encephalitis from uncertain etiology should be a consideration. In general, c onsider infectious or inflammatory conditions. 2. There are a few scattered periventricular and subcortical areas of white ma tter signal change most likely representing chronic microvascular ischemia in t hese areas. Head CT 08/15/17 Signed Impressions: CONCLUSION: 1. No acute intracranial abnormalities. Chest X-Ray 08/15/17 Signed Impressions: CONCLUSION: Minimal linear scarring or atelectasis left base. Otherwise no acute findings. FAMILY HISTORY: One sister has IHSS and has a defibrillator and 1 brother has heart murmur. One sister has suffered a brain hemorrhage. PHYSICAL EXAMINATION: GENERAL: No acute distress. HEENT: Head is atraumatic. Extraocular movements are grossly intact. Pupils reactive to light, equal. No icterus. No conjunctival erythema. Oropharynx moist mucosa without lesions. NECK: Supple, no adenopathy. LUNGS: Clear to auscultation. HEART: Regular S1 and S2. No audible murmurs, rubs or gallops. ABDOMEN: Bowel sounds present. Soft, nontender. No palpable mass. EXTREMITIES: No clubbing, cyanosis or edema. SKIN: No rash. NEUROLOGIC: Nonfocal, except for decreased peripheral vision in both the left and the right eye. PSYCHIATRIC: Calm and cooperative. IMPRESSION: 1. Vision loss in a patient with abnormal MRI. Questionable secondary to ischemia. 2. No evidence of encephalitis. CSF cultures negative. Lyme antibody test is pending. RECOMMENDATIONS: 1. Continue ceftriaxone. 2. Monitor CSF Lyme testing to determine whether ceftriaxone should be discontinued. 3. Follow the clinical status. Wale Andrade MD Aug 21, 2017 15:29
[2017-08-21] MEDS ORDERED: GADODIAMIDE PF 287 MG/ML 5 ML VIAL (for RAD MRI) IVCONTRAST ONE (17:30)
--- NOTE | 2017-08-21 18:16 | RADRPT ---
EXAM DATE: 08/21/2017 5:46 PM EDT AGE/SEX: 62 years / Female INDICATIONS: . Multiple Sclerosis. CLINICAL DATA: This is the patient's initial encounter. Patient reports that signs and symptoms have been present for 3 days and indicates a pain score of 2/10. MEDICAL/SURGICAL HISTORY: Hypertension. Cholecystectomy. Hysterectomy. COMPARISON: No prior exams available for comparison. TECHNIQUE: Multiplanar, multisequence examination of the brain was performed without and with 15 ml O mniscan (gadodiamide) contrast as a single exam dose. FINDINGS: The inversion recovery images demonstrate scattered areas of abnormal T2 signal involving the anterio r aspect of the right temporal lobe, the hippocampal gyri on the right, the pulvinar of the thalmus o n the right and a small area of abnormal signal within the anterior aspect of the right thalamus. Pos teriorly on the left there is a sizable area of subtle increased T2 signal involving the posterior pa rietal and occipital cortex. There is no corresponding abnormal signal within these areas on the diff usion restricted images. Postcontrast imaging is provided. There is a single subtle area of contrast enhancement in the anterior aspect of the thalamus on the right. No other areas of abnormal contrast enhancement are identified. There is no evidence of hemorrhage within this. The overall distribution of this is not typical for MS. The examination would raise concern for a viral encephalitis. A herpet ic encephalitis could be a consideration. The postcontrast imaging also demonstrates an abnormal appe arance of the superior sagittal and proximal transverse sinus. These findings could be related to maura ous sinus thrombosis as well. CT venography or MR venography would be warranted for further assessmen t. The ventricles are normal in size and configuration. The scattered areas of increased T2 signal in th e low periventricular white matter are likely related to microvascular ischemic demyelinative change. The appearance of the posterior fossa is unremarkable. No focal mass lesion is identified. The visualized portion of sinus and orbit are intact. CONCLUSION: 1. There are scattered areas of abnormal T2 signal within the brain parenchyma specifically involvin g the anterior aspect of the right temporal lobe, the right hippocampal gyri, the pulvinar of the larisa lamus and the posterior parieto-occipital cortex on the left. Differential considerations would inclu de an encephalitis alternatively, the overall appearance of the sagittal sinus and proximal transvers e sinuses is abnormal in the exam would raise concern for a venous sinus thrombosis. CT venogram or M R venogram is warranted for further assessment. If lumbar puncture has not been performed this should be a consideration. The overall appearance of the signal abnormalities is nonspecific. Electronically signed by: Marcelo Souza MD 08/21/2017 6:14 PM EDT
[2017-08-21] MEDS: ALPRAZolam 0.5 MG TAB PO PRN (20:05)
[2017-08-21] MEDS: ATORVASTATIN 20 MG TAB PO SCH (20:05)
[2017-08-22] VITALS (7 sets, daily range): BP systolic 134–167; BP diastolic 65–94; PULSE 64–83; RESP 18–20; TEMP 97.6–98.4; O2SAT 94–100
[2017-08-22 03:51] LABS: VDRL CSF NON-REACTIVE (NON-REACTVE)
[2017-08-22] MEDS: cefTRIAXone INJ 2,000 MG in SODIUM CHLORIDE 0.9% INJ 100 ML IV SCH (05:09)
[2017-08-22] MEDS: INSULIN ASPART SUPPLEMENTAL SCALE SQ SCH ×4 (08:00→20:21)
[2017-08-22] MEDS: PANTOPRAZOLE SOD 20 MG DELAYED RELEASE TAB PO SCH (08:21)
[2017-08-22] MEDS: LACTOBACILLUS ACIDOPHILUS TAB PO SCH ×3 (08:21→17:54)
[2017-08-22] MEDS: SODIUM CHLORIDE 0.9% FLUSH 10 ML FLUSH IV FLUSH SCH ×2 (08:21→20:46)
[2017-08-22] MEDS: LOSARTAN 50 MG TAB PO SCH (08:22)
[2017-08-22] MEDS: HYDROCHLOROTHIAZIDE 25 MG TAB PO SCH (08:23)
[2017-08-22] MEDS: CARVEDILOL 12.5 MG TAB PO SCH ×2 (08:23→20:46)
[2017-08-22] MEDS: DOCUSATE SODIUM 50 MG/SENNA 8.6 MG TAB PO SCH ×2 (08:23→20:46)
--- NOTE | 2017-08-22 08:23 | HHI.PR ---
Review/Management Diagnosis/Plan: (1) Vision loss ICD Codes: H54.7 - Unspecified visual loss Status: Acute Plan: MRI brain scan reviewed Repeat MRI brain with contrast reviewed. Right temporal lobe lesion and right thalamic lesion of the most prominent no contrast-enhancement no diffusion restriction. Considerations would include inflammatory process versus neoplastic. Encephalitis panel thus far negative clinically does not appear to have encephalitis either. Risk factors include chronic hypertension, tobacco use MRI C-spine and T-spine did not show any cord lesion Anti-and MO antibodies negative RPR negative, HIV negative Recommendations exam unchanged. doing well except for vision loss, 2/2 rt temporal lobe lesion CSF studies; MS panel pending We will check MRV brain- doubt venous occlusion nsx eval; ? biopsy mass spectroscopy could be done outpatient which may assist PT OT eval Blood pressure control Tobacco cessation Follow exam (2) HTN (hypertension) ICD Codes: I10 - Essential (primary) hypertension Status: Chronic Plan: Goal less than 120/80 On antihypertensives (3) Tobacco use ICD Codes: Z72.0 - Tobacco use Status: Chronic Plan: Cessation discussed with the patient Subjective Subjective Comments No acute events reported No headache No chest pain No dyspnea Active Medications Current Medications Medications (Trade) Dose Ordered Sig/Madeleine Route Start Time Stop Time Status Last Admin (NS Flush) 2 ml BID IV FLUSH 08/16/17 09:00 08/20/17 21:07 (NS Flush) 2 ml UNSCH PRN IV FLUSH 08/15/17 23:45 08/22/17 05:09 (Vasotec Inj) 1.25 mg Q4H PRN IV PUSH 08/15/17 23:45 (NovoLOG SUPPLEMENTAL SCALE) 1 ACHS SQ 08/16/17 08:00 08/21/17 17:00 (D50w (Vial) Inj) 50 ml UNSCH PRN IV PUSH 08/15/17 23:45 (Glucagon Inj) 1 mg UNSCH PRN OTHER 08/15/17 23:45 (Tylenol) 650 mg Q6H PRN PO 08/16/17 00:15 08/19/17 04:50 ([place] 5-325 Mg) 1 tab Q4H PRN PO 08/16/17 00:15 08/21/17 15:04 (Morphine Inj) 2 mg Q3H PRN IV PUSH 08/16/17 00:15 ([place]-Colace) 1 tab BID PO 08/16/17 09:00 08/21/17 20:05 (Milk Of Magnesia Liq) 30 ml Q12H PRN PO 08/16/17 00:15 (Senokot) 17.2 mg Q12H PRN PO 08/16/17 00:15 (Dulcolax Supp) 10 mg DAILY PRN RECTAL 08/16/17 00:15 (Lactulose Liq) 30 ml DAILY PRN PO 08/16/17 00:15 (Lipitor) 20 mg HS PO 08/16/17 00:30 08/21/17 20:05 Ceftriaxone Sodium 2000 mg/ Sodium Chloride 100 ml @ 200 mls/hr Q12H IV 08/16/17 18:00 08/22/17 05:09 (Lactinex) 1 tab TID PO 08/16/17 18:00 08/21/17 17:56 (Protonix) 20 mg DAILY PO 08/17/17 17:00 08/21/17 09:10 (Xanax) 0.5 mg Q4H PRN PO 08/21/17 19:00 08/21/17 20:05 (Coreg) 12.5 mg BID PO 08/22/17 09:00 (Cozaar) 100 mg DAILY PO 08/22/17 09:00 (Hydrodiuril) 12.5 mg DAILY PO 08/22/17 09:00 Allergies Allergies Coded Allergies No Known Allergies (Verified Allergy, Severe, 08/26/05) Review of Systems All other ROS: ROS reviewed as documented in chart Exam I&O / VS Vital Signs Date Time Temp Pulse Resp B/P (MAP) Pulse Ox O2 Delivery O2 Flow Rate FiO2 08/22/17 03:33 71 08/22/17 00:00 97.6 66 20 167/94 (118) 95 08/21/17 23:52 71 08/21/17 22:01 68 157/87 (110) 08/21/17 20:00 97.4 82 20 177/92 (120) 95 08/21/17 20:00 71 08/21/17 15:01 98.2 95 16 154/93 (113) 93 08/21/17 12:11 98.1 92 18 148/76 (100) 95 General: Alert and Oriented, No acute distress Eye: PERRL, EOMI Respiratory: Non-labored respirations, BS equal, Symmetrical expansion, No chest wall tenderness Cardiology: Normal rate, No edema Musculoskeletal: ROM Neurologic: Alert, Oriented, Normal sensory, Normal motor Psychiatric: Cooperative, Appropriate mood & affect, Normal judgement, Non- suicidal Exam Comments alert oriented 3, pleasant , articulate speech extraocular movements intact left curvilinear homonymous hemianopsia no facial asymmetry tongue midline strength 5 out of 5 her lower limbs no pronator drift no dysmetria mild lower extremity hyperreflexia, Objective Micro and Labs Date/Time Source Procedure Growth Status 08/18/17 08:46 Cerebral Spinal Fluid Lumbar Puncture Gram Stain - Final Complete 08/18/17 08:46 Cerebral Spinal Fluid Lumbar Puncture CSF Culture - Final NO GROWTH IN 72 HOURS Complete Problem Qualifiers (1) HTN (hypertension): Qualified Codes: I10 - Essential (primary) hypertension Lebron Lemus MD Aug 22, 2017 08:23
[2017-08-22] MEDS ORDERED: IRBESARTAN HYDROCHLOROTHIAZIDE PO SCH (09:00)
[2017-08-22] MEDS: ACETAMINOPHEN/HYDROcodone 325 MG/5 MG TAB PO PRN ×2 (09:12→14:31)
[2017-08-22] MEDS: ALPRAZolam 0.5 MG TAB PO PRN (09:12)
[2017-08-22 10:08] LABS: ALBUMIN CSF 28.2 mg/dL (<=27.0); IGG CSF 2.8 mg/dL (<=8.1); IGG INDEX CSF 0.59 (<=0.85); IGG/ALBUMIN CSF 0.1 (<=0.21); IGG/ALBUMIN SERUM 0.17 (<=0.40); SYNTHESIS RATE CSF 2.5 mg/24 h (<=12)
--- NOTE | 2017-08-22 10:49 | HHI.PR ---
Subjective Remarks Worried about her finances and being here in the hospital. She reports no changes in her vision. Symptoms are not improved but not worse. No headaches and no focalized weakness or numbness Objective Vitals Vital Signs Date Time Temp Pulse Resp B/P (MAP) Pulse Ox O2 Delivery O2 Flow Rate FiO2 08/22/17 08:00 98.1 64 18 160/81 (107) 97 08/22/17 03:33 71 08/22/17 00:00 97.6 66 20 167/94 (118) 95 08/21/17 23:52 71 08/21/17 22:01 68 157/87 (110) 08/21/17 20:00 97.4 82 20 177/92 (120) 95 08/21/17 20:00 71 08/21/17 15:01 98.2 95 16 154/93 (113) 93 08/21/17 12:11 98.1 92 18 148/76 (100) 95 I/O 08/21/17 08/21/17 08/21/17 08/22/17 08/22/17 08/22/17 07:00 15:00 23:00 07:00 15:00 23:00 Intake Total 960 ml 380 ml Balance 960 ml 380 ml Intake Oral 960 ml 380 ml # Voids 3 4 3 Result Diagram: 08/20/17 0212 08/21/17 0640 Objective Remarks GENERAL: This is a well-nourished, well-developed patient, in no apparent distress. HEENT: EOMI, left vision peripheral field deficit CARDIOVASCULAR: Regular rate and rhythm without murmurs, gallops, or rubs. RESPIRATORY: Clear to auscultation. Breath sounds equal bilaterally. No wheezes , rales, or rhonchi. MUSCULOSKELETAL: Extremities without clubbing, cyanosis, or edema. NEURO: Alert & Oriented x4 to person, place, time, situation. Moves all ext x4 A/P Problem List: (1) Vision loss ICD Code: H54.7 - Unspecified visual loss Status: Acute (2) Hypokalemia ICD Code: E87.6 - Hypokalemia (3) HTN (hypertension) ICD Code: I10 - Essential (primary) hypertension Status: Chronic Assessment and Plan 62-year-old female admitted secondary to peripheral vision loss Progressive peripheral vision loss, differential diagnosis of the demyelination , inflammatory versus encephalitis; stroke has been ruled out Patient states symptom has not improved nor worsened -Head CT reviewed, no acute findings -Brain MRI with multifocal areas of abnormal edema; uncertain etiology, concerning for an infectious vs inflammatory process (pituitary normal). -head MRA unremarkable neg but Thoracic spine w no finding suggestive of MS. -Neurology consulted, appreciate Dr. Lemus's recommendations. Repeat MRI of the brain completed 08/21 reviewed. Will obtain MRV of the brain today along neurosurgical evaluation to consideration for brain biopsy for further evaluation. -S/p LP, CSF studies pending, so far unremarkable -Complete day 5 of high dose IV solu-medrol. -HIV non reactive, RPR non reactive. Lyme antibodies, anti-NMO antibodies, pathology pending, MS panel currently pending -PT OT evaluation, no PT needed at discharge -Continue statin -ID also following. Continue on empiric IV rocephin and dc acyclovir due to HSV negative -Ophthalmology, Dr. Neslon consulted, appreciate input and recommendations Hypertension: BP stable and home medication has been restarted due to elevation overnight. -Continue with Coreg, Cozaar and HCTZ. Will continue to monitor. Hypokalemia: acute -Repleted DVT prophylaxis: SCDs Discharge Planning Home when cleared by neurology Problem Qualifiers (1) HTN (hypertension): Qualified Codes: I10 - Essential (primary) hypertension Ritika Olvera MD Aug 22, 2017 10:49
--- NOTE | 2017-08-22 12:38 | PD.CONS ---
HPI Service Neurosurgery Consult Requested By Dr ford Reason for Consult Brain lesion Primary Care Physician Tonya Howard M.D. History of Present Illness This is a 70-year-old female with a PMH of HTN, Cholelithiasis and Tobacco Abuse who was referred to the ER by her Marketing Strategy Analyst for vision loss and concern for stroke. She has been seeing floaters and reduced vision in her peripheral pacheco. States past few days she is seeing some blurriness in vision flashes of light white and red in the periphery. No significant history of migraine headache No seizure activities. No tonic-clonic activity reported. No tongue biting. No incontinence of stool or urine.See the autoclave operator who did formal visual field testing and found left homonymous hemianopsia and suspected patient having a stroke. Apparently normal funduscopic exam. Ms Amor denies any headache trauma vertigo focal weakness or gait imbalance. Denies previous h/o similar symptoms. Takes ASA 81mg qd in addition to Lipitor. On arrival she was hypertensive. CT Head negative for hemorrhage or stroke. She denies any history of hypercoagulable state, lupus or DVT or A. fib. No family history of stroke. States she smokes only when she is driving. MRI Brain with scattered abnormal signa, particularly in her right tempotal lobe. Neurosurgery consultation was requested Review of Systems Constitutional: DENIES: Diaphoretic episodes, Fatigue, Fever, Weight gain, Weight loss, Chills, Dizziness, Change in appetite, Night Sweats Endocrine: DENIES: Abnorml menstrual pattern, Heat/cold intolerance, Polydipsia , Polyuria, Polyphagia Eyes: COMPLAINS OF: Blurred vision, Eye inflammation, Vision loss, DENIES: Diplopia, Eye pain, Photosensitivity, Double Vision Ears, nose, mouth, throat: DENIES: Tinnitus, Hearing loss, Vertigo, Nasal discharge, Oral lesions, Throat pain, Hoarseness, Ear Pain, Running Nose, Epistaxis, Sinus Pain, Toothache, Odynophagia Respiratory: DENIES: Apneas, Cough, Snoring, Wheezing, Hemoptysis, Sputum production, Shortness of breath Cardiovascular: DENIES: Chest pain, Palpitations, Syncope, Dyspnea on Exertion , PND, Lower Extremity Edema, Orthopnea, Claudication Genitourinary: DENIES: Abnormal vaginal bleeding, Dysmenorrhea, Dyspareunia, Sexual dysfunction, Urinary frequency, Urinary incontinence, Urgency, Hematuria , Dysuria, Nocturia, Vaginal discharge Musculoskeletal: DENIES: Joint pain, Muscle aches, Stiffness, Joint Swelling, Back pain, Neck pain Integumentary: DENIES: Abnormal pigmentation, Pruritus, Rash, Nail changes, Breast masses, Breast skin changes, Nipple discharge Hematologic/lymphatic: DENIES: Bruising, Lymphadenopathy Immunologic/allergic: DENIES: Eczema, Urticaria Neurologic: COMPLAINS OF: Headache, DENIES: Abnormal gait, Localized weakness, Paresthesias, Seizures, Speech Problems, Tremor, Poor Balance Psychiatric: DENIES: Anxiety, Confusion, Mood changes, Depression, Hallucinations, Agitation, Suicidal Ideation, Homicidal Ideation, Delusions Past Family Social History Allergies: Coded Allergies: No Known Allergies (Verified Allergy, Severe, 08/26/05) Past Medical History PMH: HTN, Cholelithiasis and Tobacco Abuse Past Surgical History Breast Augmentation, Hysterectomy, Cholecystectomy Active Ordered Medications Current Medications Sodium Chloride (NS Flush) 2 ml BID IV FLUSH Last administered on 08/22/17at 08: 21; Start 08/16/17 at 09:00 Sodium Chloride (NS Flush) 2 ml UNSCH PRN IV FLUSH FLUSH AFTER USING IV ACCESS Last administered on 08/22/17at 05:09; Start 08/15/17 at 23:45 Sodium Chloride 1,000 ml @ 70 mls/hr [id number] IV Last administered on at 08:18; Start 08/15/17 at 23:44; Stop 08/18/17 at 15:07; Status DC Enalaprilat (Vasotec Inj) 1.25 mg Q4H PRN IV PUSH For SBP > 220 or DBP > 120; Start 08/15/17 at 23:45 Aspirin (Aspirin Chew) 81 mg DAILY PO ; Start 08/16/17 at 09:00; Stop 08/16/17 at 09:00; Status DC Insulin Aspart (NovoLOG SUPPLEMENTAL SCALE) 1 ACHS SQ Last administered on 08/21at 17:00; Start 08/16/17 at 08:00 Dextrose (D50w (Vial) Inj) 50 ml UNSCH PRN IV PUSH HYPOGLYCEMIA-SEE COMMENTS; Start 08/15/17 at 23:45 Glucagon (Glucagon Inj) 1 mg UNSCH PRN OTHER HYPOGLYCEMIA-SEE COMMENTS; Start 08/15/17 at 23:45 Alprazolam (Xanax) 0.25 mg Q4H PRN PO ANXIETY Last administered on 08/21/17at 15 :03; Start 08/15/17 at 23:45; Stop 08/21/17 at 18:50; Status DC Atorvastatin Calcium (Lipitor) 20 mg HS PO ; Start 08/16/17 at 21:00; Stop 08/16 at 21:00; Status DC Acetaminophen (Tylenol) 650 mg Q6H PRN PO FEVER/PAIN SCALE 1 TO 2 Last administered on 08/19/17at 04:50; Start 08/16/17 at 00:15 Acetaminophen/ Hydrocodone Bitart (Bluford 5-325 Mg) 1 tab Q4H PRN PO PAIN SCALE 3 TO 5 Last administered on 08/22/17at 14:31; Start 08/16/17 at 00:15 Morphine Sulfate (Morphine Inj) 2 mg Q3H PRN IV PUSH Pain 6-10; Start 08/16/17 at 00:15 Senna/Docusate Sodium (Marychuy-Colace) 1 tab BID PO Last administered on at 08:23; Start 08/16/17 at 09:00 Magnesium Hydroxide (Milk Of Magnesia Liq) 30 ml Q12H PRN PO Mild constipation ; Start 08/16/17 at 00:15 Sennosides (Senokot) 17.2 mg Q12H PRN PO Moderate constipation Last administered on 08/22/17at 08:30; Start 08/16/17 at 00:15 Bisacodyl (Dulcolax Supp) 10 mg DAILY PRN RECTAL SEVERE CONSITIPATION; Start at 00:15 Lactulose (Lactulose Liq) 30 ml DAILY PRN PO SEVERE CONSITIPATION; Start at 00:15 Atorvastatin Calcium (Lipitor) 20 mg HS PO Last administered on 08/21/17at 20:05 ; Start 08/16/17 at 00:30 Aspirin (Ecotrin Ec) 325 mg DAILY PO Last administered on 08/16/17at 08:29; Start 08/16/17 at 09:00; Stop 08/16/17 at 15:32; Status DC Potassium Chloride (KCl) 40 meq ONCE ONCE PO Last administered on 08/16/17at 02 :55; Start 08/16/17 at 00:30; Stop 08/16/17 at 00:38; Status DC Ceftriaxone Sodium 2000 mg/ Sodium Chloride 100 ml @ 200 mls/hr Q12H IV Last administered on 08/22/17at 05:09; Start 08/16/17 at 18:00; Stop 08/22/17 at 12:00 ; Status DC Acyclovir Sodium 700 mg/Sodium Chloride 100 ml @ 100 mls/hr Q8H IV Last administered on 08/21/17at 09:10; Start 08/16/17 at 17:00; Stop 08/21/17 at 10:37 ; Status DC Methylprednisolone Sodium Succinate (SoluMEDROL INJ) 125 mg ONCE ONCE IV PUSH Last administered on 08/16/17at 16:58; Start 08/16/17 at 15:45; Stop 08/16/17 at 15:51; Status DC Methylprednisolone Sodium Succinate (SoluMEDROL INJ) 40 mg Q6HR IV PUSH Last administered on 08/17/17at 06:19; Start 08/17/17 at 00:00; Stop 08/17/17 at 10:24 ; Status DC Lactobacillus Acidophilus (Lactinex) 1 tab TID PO Last administered on at 12:26; Start 08/16/17 at 18:00 Gadodiamide (Omniscan Pf Inj) 15 ml STK-MED ONCE IVCONTRAST Last administered on 08/16/17at 16:39; Start 08/16/17 at 16:39; Stop 08/16/17 at 16:41; Status DC Methylprednisolone Sodium Succinate (SoluMEDROL INJ) 500 mg Q12HR IV PUSH ; Start 08/17/17 at 12:00; Status UNV Gadodiamide (Omniscan Pf Inj) 15 ml STK-MED ONCE IVCONTRAST Last administered on 08/17/17at 13:11; Start 08/17/17 at 13:11; Stop 08/17/17 at 13:12; Status DC Methylprednisolone Sodium Succinate 500 mg/Sodium Chloride 100 ml @ 200 mls/hr Q12H IV Last administered on 08/21/17at 15:03; Start 08/17/17 at 16:00; Stop at 21:00; Status DC Pantoprazole Sodium (Protonix) 20 mg DAILY PO Last administered on 08/22/17at 08 :21; Start 08/17/17 at 17:00 Potassium Chloride (KCl) 40 meq ONCE ONCE PO Last administered on 08/19/17at 12 :26; Start 08/19/17 at 12:30; Stop 08/19/17 at 12:31; Status DC Potassium Chloride (KCl) 30 meq ONCE ONCE PO Last administered on 08/20/17at 03 :39; Start 08/20/17 at 03:30; Stop 08/20/17 at 03:31; Status DC Potassium Chloride (KCl) 40 meq ONCE ONCE PO Last administered on 08/20/17at 08 :48; Start 08/20/17 at 08:00; Stop 08/20/17 at 08:04; Status DC Gadodiamide (Omniscan Pf Inj) 15 ml STK-MED ONCE IVCONTRAST Last administered on 08/21/17at 17:33; Start 08/21/17 at 17:30; Stop 08/21/17 at 17:32; Status DC Alprazolam (Xanax) 0.5 mg Q4H PRN PO ANXIETY Last administered on 08/22/17at 09: 12; Start 08/21/17 at 19:00 Carvedilol (Coreg) 12.5 mg BID PO Last administered on 08/22/17at 08:23; Start 08/22/17 at 09:00 Non-Formulary Medication 1 tab DAILY PO ; Start 08/22/17 at 09:00; Stop at 09:00; Status DC Losartan Potassium (Cozaar) 100 mg DAILY PO Last administered on 08/22/17at 08: 22; Start 08/22/17 at 09:00 Hydrochlorothiazide (Hydrodiuril) 12.5 mg DAILY PO Last administered on at 08:23; Start 08/22/17 at 09:00 Estrogens Conjugated (Premarin) 1.25 mg DAILY PO ; Start 08/23/17 at 09:00 Family History The family history was reviewed and noncontributory to this admission Social History Negative for alcohol or drugs. Positive for tobacco. Physical Exam Vital Signs Vital Signs Date Time Temp Pulse Resp B/P (MAP) Pulse Ox O2 Delivery O2 Flow Rate FiO2 08/22/17 08:15 69 08/22/17 08:00 98.1 64 18 160/81 (107) 97 08/22/17 03:33 71 08/22/17 00:00 97.6 66 20 167/94 (118) 95 08/21/17 23:52 71 08/21/17 22:01 68 157/87 (110) 08/21/17 20:00 97.4 82 20 177/92 (120) 95 08/21/17 20:00 71 08/21/17 15:01 98.2 95 16 154/93 (113) 93 Physical Exam The patient is alert, awake and oriented to time, place and person. Speech is fluent. Cranial nerve examination: pupils to be equal, round and reactive to light. Extra-ocular movements are intact. Visual field deficit, poorly characterized Facial motor and sensory function are normal and symmetrical. Gross hearing appears intact. Sternocleidomastoid and trapezius muscles are symmetrical. Other cranial nerves are intact. Neck is soft and supple with a good range of motion without pain. Muscle strength is normal in all muscle groups of both upper and lower extremities. Sensory examination is intact to light touch and pin prick in both the upper and lower extremities. Deep tendon reflexes are symmetrical in both upper and lower extremities. There is a bilateral plantar flexion response. Cerebellar examination is unremarkable, without deficits. Respiratory: Non-labored respirations, BS equal, Symmetrical expansion, No chest wall tenderness Cardiology: Normal rate, No edema Musculoskeletal: Normal ROM Psychiatric: Cooperative, Appropriate mood & affect, Normal judgement, Non- suicidal Laboratory Date/Time Source Procedure Growth Status 08/18/17 08:46 Cerebral Spinal Fluid Lumbar Puncture Gram Stain - Final Complete 08/18/17 08:46 Cerebral Spinal Fluid Lumbar Puncture CSF Culture - Final NO GROWTH IN 72 HOURS Complete Result Diagram: 08/20/17 0212 08/21/17 0640 Attending Statement (1) Vision loss ICD Codes: H54.7 - Unspecified visual loss Status: Acute Related to emporal brain lesion. I reviewed her radiological studies including Brain MRI 08/21/17 0000 Signed Impressions: CONCLUSION: 1. There are scattered areas of abnormal T2 signal within the brain parenchyma specifically involving the anterior aspect of the right temporal lobe, the rig ht hippocampal gyri, the pulvinar of the thalamus and the posterior parieto-occ ipital cortex on the left. Differential considerations would include an encepha litis alternatively, the overall appearance of the sagittal sinus and proximal transverse sinuses is abnormal in the exam would raise concern for a venous sin us thrombosis. CT venogram or MR venogram is warranted for further assessment. If lumbar puncture has not been performed this should be a consideration. The o verall appearance of the signal abnormalities is nonspecific. Status post lumbar puncture. CSF labs in progress. Some labs are pending (2) HTN (hypertension) ICD Codes: I10 - Essential (primary) hypertension Status: Chronic Plan: Goal less than 120/80 Continue antihypertensives (3) Tobacco use ICD Codes: Z72.0 - Tobacco use Status: Chronic Plan: Cessation discussed with the patient Pulmonary: aggressive pulmonary toilette, nasotracheal suction, and breathing treatments with nebulizers. Daily PT and OT Renal. monitor closely urine output, BUN and creatinine Endocrine.Monitor serial Acu checks and SSI as needed in detail ID monitor for signs of infection Protonix for stress ulcer prophylaxis Sergey hose and SCD's for DVT prophylaxis Further recommendations will be provided depending on the patient's clinical evaluation and follow up studies. Discussed with neurologist, Gallito Medley MD Aug 22, 2017 12:38
--- NOTE | 2017-08-22 15:23 | HHI.IDPN ---
Note Infectious Disease Note Patient states that her vision has not improved. Feels slight headache. Points to the area right between the eyes above the nasal bridge. No fever. No nausea or vomiting. CSF studies: CSF Lyme PCR is negative., cryptococcal antigen negative, HSV negative. HIV antibody negative. Patient admitted with visual loss. This has not improved. Repeat MRI of the brain has been performed. MRI of the brain showed multifocal areas of abnormal edema, which do not demonstrate features to indicate recent ischemia. Abnormal areas include anterior right temporal lobe, right thalamus, left parietal region and left roslyn. There also noted to be a few scattered periventricular and subcortical areas of white matter signal change, likely representing chronic microvascular ischemia in these areas. The patient has had no neck stiffness. She denies weight loss. No prior history of stroke. PAST MEDICAL HISTORY: Hypertension, cholelithiasis, breast augmentation, hysterectomy, cholecystectomy. She reports having a heart murmur in the past. ALLERGIES: NO KNOWN DRUG ALLERGIES. MEDICATIONS: Current Medications Medications (Trade) Dose Ordered Sig/Madeleine Route PRN Reason Start Time Stop Time Status Last Admin Dose Admin Sodium Chloride (NS Flush) 2 ml BID IV FLUSH 08/16/17 09:00 08/22/17 08:21 Sodium Chloride (NS Flush) 2 ml UNSCH PRN IV FLUSH FLUSH AFTER USING IV ACCESS 08/15/17 23:45 08/22/17 05:09 Enalaprilat (Vasotec Inj) 1.25 mg Q4H PRN IV PUSH For SBP > 220 or DBP > 120 08/15/17 23:45 Insulin Aspart (NovoLOG SUPPLEMENTAL SCALE) 1 ACHS SQ 08/16/17 08:00 08/21/17 17:00 Dextrose (D50w (Vial) Inj) 50 ml UNSCH PRN IV PUSH HYPOGLYCEMIA-SEE COMMENTS 08/15/17 23:45 Glucagon (Glucagon Inj) 1 mg UNSCH PRN OTHER HYPOGLYCEMIA-SEE COMMENTS 08/15/17 23:45 Acetaminophen (Tylenol) 650 mg Q6H PRN PO FEVER/PAIN SCALE 1 TO 2 08/16/17 00:15 08/19/17 04:50 Acetaminophen/ Hydrocodone Bitart ([place]urel 5-325 Mg) 1 tab Q4H PRN PO PAIN SCALE 3 TO 5 08/16/17 00:15 08/22/17 14:31 Morphine Sulfate (Morphine Inj) 2 mg Q3H PRN IV PUSH Pain 6-10 08/16/17 00:15 Senna/Docusate Sodium (Marychuy-Colace) 1 tab BID PO 08/16/17 09:00 08/22/17 08:23 Magnesium Hydroxide (Milk Of Magnesia Liq) 30 ml Q12H PRN PO Mild constipation 08/16/17 00:15 Sennosides (Senokot) 17.2 mg Q12H PRN PO Moderate constipation 08/16/17 00:15 08/22/17 08:30 Bisacodyl (Dulcolax Supp) 10 mg DAILY PRN RECTAL SEVERE CONSITIPATION 08/16/17 00:15 Lactulose (Lactulose Liq) 30 ml DAILY PRN PO SEVERE CONSITIPATION 08/16/17 00:15 Atorvastatin Calcium (Lipitor) 20 mg HS PO 08/16/17 00:30 08/21/17 20:05 Lactobacillus Acidophilus (Lactinex) 1 tab TID PO 08/16/17 18:00 08/22/17 12:26 Pantoprazole Sodium (Protonix) 20 mg DAILY PO 08/17/17 17:00 08/22/17 08:21 Alprazolam (Xanax) 0.5 mg Q4H PRN PO ANXIETY 08/21/17 19:00 08/22/17 09:12 Carvedilol (Coreg) 12.5 mg BID PO 08/22/17 09:00 08/22/17 08:23 Losartan Potassium (Cozaar) 100 mg DAILY PO 08/22/17 09:00 08/22/17 08:22 Hydrochlorothiazide (Hydrodiuril) 12.5 mg DAILY PO 08/22/17 09:00 08/22/17 08:23 Estrogens Conjugated (Premarin) 1.25 mg DAILY PO 08/23/17 09:00 Objective: Vital Signs Date Time Temp Pulse Resp B/P (MAP) Pulse Ox O2 Delivery O2 Flow Rate FiO2 08/22/17 12:00 98.4 74 18 134/91 (105) 94 08/22/17 08:15 69 08/22/17 08:00 98.1 64 18 160/81 (107) 97 08/22/17 03:33 71 08/22/17 00:00 97.6 66 20 167/94 (118) 95 08/21/17 23:52 71 08/21/17 22:01 68 157/87 (110) 08/21/17 20:00 97.4 82 20 177/92 (120) 95 08/21/17 20:00 71 Laboratory Tests Test 08/21/17 06:40 Blood Urea Nitrogen 21 MG/DL Creatinine 0.69 MG/DL Random Glucose 99 MG/DL Calcium Level 8.3 MG/DL Sodium Level 147 MEQ/L Potassium Level 3.4 MEQ/L Chloride Level 110 MEQ/L Carbon Dioxide Level 22.2 MEQ/L Anion Gap 15 MEQ/L Estimat Glomerular Filtration Rate 87 ML/MIN Imaging: Brain MRI 08/21/17 0000 Signed Impressions: CONCLUSION: 1. There are scattered areas of abnormal T2 signal within the brain parenchyma specifically involving the anterior aspect of the right temporal lobe, the rig ht hippocampal gyri, the pulvinar of the thalamus and the posterior parieto-occ ipital cortex on the left. Differential considerations would include an encepha litis alternatively, the overall appearance of the sagittal sinus and proximal transverse sinuses is abnormal in the exam would raise concern for a venous sin us thrombosis. CT venogram or MR venogram is warranted for further assessment. If lumbar puncture has not been performed this should be a consideration. The o verall appearance of the signal abnormalities is nonspecific. Lumbar Puncture Fluoroscopy 08/18/17 Signed Impressions: CONCLUSION: 1. Uncomplicated fluoroscopically guided lumbar puncture. Thoracic Spine MRI 08/17/17 Signed Impressions: CONCLUSION: 1. Spinal cord has a normal appearance. There are no findings to indicate mult iple sclerosis involvement of the thoracic spinal cord. 2. Mild degenerative disc disease at T11-T12. No canal stenosis or neural fora chelsie narrowing is present. Head Magnetic Resonance Angiography 08/16/17 Signed Impressions: CONCLUSION: No intracranial arterial vascular abnormality is identified. Cervical Spine MRI 08/16/17 Signed Impressions: CONCLUSION: 1. No cord signal abnormalities to suggest multiple sclerosis. 2. Degenerative disc disease most severe at C5-6-7 where there is mild impress ion on the anterior surface of the cord. Slight reversal of normal cervical nohemy dosis. Brain MRI 08/16/17 Signed Impressions: CONCLUSION: 1. Multifocal areas of abnormal edema which do not demonstrate features to ind icate recent ischemia. The abnormal areas include the anterior right temporal l obe, right thalamus, left parietal region, and left roslyn. Etiology is uncertain . Encephalitis from uncertain etiology should be a consideration. In general, c onsider infectious or inflammatory conditions. 2. There are a few scattered periventricular and subcortical areas of white ma tter signal change most likely representing chronic microvascular ischemia in t hese areas. Head CT 08/15/17 0000 Signed Impressions: CONCLUSION: 1. No acute intracranial abnormalities. Chest X-Ray 08/15/17 Signed Impressions: CONCLUSION: Minimal linear scarring or atelectasis left base. Otherwise no acute findings. FAMILY HISTORY: One sister has IHSS and has a defibrillator and 1 brother has heart murmur. One sister has suffered a brain hemorrhage. PHYSICAL EXAMINATION: GENERAL: No acute distress. HEENT: Head is atraumatic. Extraocular movements are grossly intact. Pupils reactive to light, equal. No icterus. No conjunctival erythema. Oropharynx moist mucosa without lesions. NECK: Supple, no adenopathy. LUNGS: Clear to auscultation. HEART: Regular S1 and S2. No audible murmurs, rubs or gallops. ABDOMEN: Bowel sounds present. Soft, nontender. No palpable mass. EXTREMITIES: No clubbing, cyanosis or edema. SKIN: No rash. NEUROLOGIC: Nonfocal, except for decreased peripheral vision in the left PSYCHIATRIC: Calm and cooperative. IMPRESSION: 1. Vision loss in a patient with abnormal MRI. Homonymous hemianopsia. 2. No evidence of encephalitis. CSF cultures negative. Lyme antibody test is negative. There is no convincing evidence on culture to suggest encephalitis. RECOMMENDATIONS: 1. Stop ceftriaxone. 2. Follow the clinical status. 3. Neurology and neurosurgery evaluation in progress. I will sign off now please reconsult if further input is needed. Wale Andrade MD Aug 22, 2017 15:23
[2017-08-22 15:54] LABS: OLIGOCLONAL BANDING CSF 5 bands; OLIGOCLONAL BANDING INTERPRET 0 bands (<4); OLIGOCLONAL BANDING SERUM 5 bands
[2017-08-22] MEDS: ATORVASTATIN 20 MG TAB PO SCH (20:46)
[2017-08-22] MEDS: ACETAMINOPHEN 325 MG TAB PO PRN (20:46)
[2017-08-23] VITALS: BP 113/67; PULSE 72; RESP 16; TEMP 97.8; O2SAT 95
[2017-08-23] MEDS: ACETAMINOPHEN/HYDROcodone 325 MG/5 MG TAB PO PRN ×5 (02:45→23:30)
[2017-08-23] MEDS: INSULIN ASPART SUPPLEMENTAL SCALE SQ SCH ×2 (07:32→12:00)
[2017-08-23] MEDS ORDERED: GADODIAMIDE PF 287 MG/ML 20 ML VIAL (for RAD MRI) IVCONTRAST ONE (07:35)
[2017-08-23 08:00] VITALS: BP 146/92; PULSE 68; RESP 18; TEMP 97.9; O2SAT 95
[2017-08-23] MEDS: LOSARTAN 50 MG TAB PO SCH (08:13)
[2017-08-23] MEDS: LACTOBACILLUS ACIDOPHILUS TAB PO SCH ×3 (08:13→17:47)
[2017-08-23] MEDS: DOCUSATE SODIUM 50 MG/SENNA 8.6 MG TAB PO SCH ×2 (08:14→20:25)
[2017-08-23] MEDS: PANTOPRAZOLE SOD 20 MG DELAYED RELEASE TAB PO SCH (08:14)
[2017-08-23] MEDS: CARVEDILOL 12.5 MG TAB PO SCH ×2 (08:14→20:25)
[2017-08-23] MEDS: HYDROCHLOROTHIAZIDE 25 MG TAB PO SCH (08:14)
[2017-08-23] MEDS: ESTROGENS CONJUGATED 1.25 MG TAB PO SCH (08:15)
[2017-08-23] MEDS: SODIUM CHLORIDE 0.9% FLUSH 10 ML FLUSH IV FLUSH SCH ×2 (09:00→20:25)
--- NOTE | 2017-08-23 11:09 | RADRPT ---
EXAM DATE: 08/23/2017 8:02 AM EDT AGE/SEX: 62 years / Female INDICATIONS: . Visual disturbances. CLINICAL DATA: This is the patient's subsequent encounter. Patient reports that signs and symptoms h ave been present for 1 week and indicates a pain score of 0/10. MEDICAL/SURGICAL HISTORY: Hypertension. Cholecystectomy. Hysterectomy. COMPARISON: [facility] [place], MRI BRAIN W & W/O CONTRAST, 08/21/2017. . TECHNIQUE: MR cerebral venography is performed without and with 15cc ml Omniscan (gadodiamide) contr ast (single exam dose). Source images, 3D volume MIP, and sliding thin slab MIP reconstructions were reviewed. FINDINGS: The examination is of good diagnostic quality. The superior sagittal sinus, straight sinus, torcula, transverse sinuses and proximal internal jugula r veins all appear widely patent. The cortical veins are patent. The internal cerebral veins appear p atent. CONCLUSION: 1. No findings to indicate venous sinus thrombosis identified. Electronically signed by: Marcelo Souza MD 08/23/2017 11:08 AM EDT
[2017-08-23 14:00] VITALS: BP 110/53; PULSE 75; RESP 16; TEMP 98.3; O2SAT 94
--- NOTE | 2017-08-23 14:57 | HHI.PR ---
Subjective Remarks 08-22 Worried about her finances and being here in the hospital. She reports no changes in her vision. Symptoms are not improved but not worse. No headaches and no focalized weakness or numbness 08-23 IS SCHEDULED FOR BRAIN BIOPSY IN TEMPORAL LOBE ON FRIDAY WITH DR TEE ZHANG RN AND PT AND CM DC ACCUCHECKS SINCE OFF STEROIDS Still having visual field cut issues Objective Vitals Vital Signs Date Time Temp Pulse Resp B/P (MAP) Pulse Ox O2 Delivery O2 Flow Rate FiO2 08/23/17 08:00 97.9 68 18 146/92 (110) 95 08/23/17 00:00 97.8 72 16 113/67 (82) 95 08/22/17 20:00 97.8 83 20 140/82 (101) 94 08/22/17 16:00 97.8 81 18 145/78 (100) 94 I/O 08/22/17 08/22/17 08/22/17 08/23/17 08/23/17 08/23/17 07:00 15:00 23:00 07:00 15:00 23:00 Intake Total 380 ml 100 ml 480 ml Balance 380 ml 100 ml 480 ml Intake Oral 380 ml 480 ml IV Total 100 ml # Voids 3 3 # Bowel Movements 0 Result Diagram: 08/20/17 0212 08/21/17 0640 Other Results Laboratory Tests Test 08/21/17 06:40 Blood Urea Nitrogen 21 MG/DL Creatinine 0.69 MG/DL Random Glucose 99 MG/DL Calcium Level 8.3 MG/DL Sodium Level 147 MEQ/L Potassium Level 3.4 MEQ/L Chloride Level 110 MEQ/L Carbon Dioxide Level 22.2 MEQ/L Anion Gap 15 MEQ/L Estimat Glomerular Filtration Rate 87 ML/MIN Imaging Last Impressions Head/Brain Mag Res Venography 08/23/17 0000 Signed Impressions: CONCLUSION: 1. No findings to indicate venous sinus thrombosis identified. Brain MRI 08/21/17 0000 Signed Impressions: CONCLUSION: 1. There are scattered areas of abnormal T2 signal within the brain parenchyma specifically involving the anterior aspect of the right temporal lobe, the rig ht hippocampal gyri, the pulvinar of the thalamus and the posterior parieto-occ ipital cortex on the left. Differential considerations would include an encepha litis alternatively, the overall appearance of the sagittal sinus and proximal transverse sinuses is abnormal in the exam would raise concern for a venous sin us thrombosis. CT venogram or MR venogram is warranted for further assessment. If lumbar puncture has not been performed this should be a consideration. The o verall appearance of the signal abnormalities is nonspecific. Lumbar Puncture Fluoroscopy 08/18/17 Signed Impressions: CONCLUSION: 1. Uncomplicated fluoroscopically guided lumbar puncture. Thoracic Spine MRI 08/17/17 Signed Impressions: CONCLUSION: 1. Spinal cord has a normal appearance. There are no findings to indicate mult iple sclerosis involvement of the thoracic spinal cord. 2. Mild degenerative disc disease at T11-T12. No canal stenosis or neural fora chelsie narrowing is present. Head Magnetic Resonance Angiography 08/16/17 Signed Impressions: CONCLUSION: No intracranial arterial vascular abnormality is identified. Cervical Spine MRI 08/16/17 Signed Impressions: CONCLUSION: 1. No cord signal abnormalities to suggest multiple sclerosis. 2. Degenerative disc disease most severe at C5-6-7 where there is mild impress ion on the anterior surface of the cord. Slight reversal of normal cervical nohemy dosis. Head CT 08/15/17 Signed Impressions: CONCLUSION: 1. No acute intracranial abnormalities. Chest X-Ray 08/15/17 Signed Impressions: CONCLUSION: Minimal linear scarring or atelectasis left base. Otherwise no acute findings. Objective Remarks GENERAL: Still having visual field cut issues-awake alert and oriented 3 talkative and cooperative SKIN: Warm and dry. HEAD: Atraumatic. Normocephalic. EYES: Pupils equal and round. No scleral icterus. No injection or drainage. Having visual field cut issues ENT: No nasal bleeding or discharge. Mucous membranes pink and moist. NECK: Trachea midline. No JVD. CARDIOVASCULAR: Regular rate and rhythm. S1-S2 no S3 or S4 RESPIRATORY: No accessory muscle use. Clear to auscultation. Breath sounds equal bilaterally. GASTROINTESTINAL: Abdomen soft, non-tender, nondistended. Hepatic and splenic margins not palpable. MUSCULOSKELETAL: Extremities without clubbing, cyanosis, or edema. No obvious deformities. NEUROLOGICAL: Awake and alert. No obvious cranial nerve deficits. Motor grossly within normal limits. 4 out of 5 muscle strength in the arms and legs. Normal speech. PSYCHIATRIC: Appropriate mood and affect; insight and judgment normal. Medications and IVs Current Medications Sodium Chloride (NS Flush) 2 ml BID IV FLUSH Last administered on 08/22/17at 20: 46; Start 08/16/17 at 09:00 Sodium Chloride (NS Flush) 2 ml UNSCH PRN IV FLUSH FLUSH AFTER USING IV ACCESS Last administered on 08/22/17at 05:09; Start 08/15/17 at 23:45 Sodium Chloride 1,000 ml @ 70 mls/hr [id number] IV Last administered on at 08:18; Start 08/15/17 at 23:44; Stop 08/18/17 at 15:07; Status DC Enalaprilat (Vasotec Inj) 1.25 mg Q4H PRN IV PUSH For SBP > 220 or DBP > 120; Start 08/15/17 at 23:45 Aspirin (Aspirin Chew) 81 mg DAILY PO ; Start 08/16/17 at 09:00; Stop 08/16/17 at 09:00; Status DC Insulin Aspart (NovoLOG SUPPLEMENTAL SCALE) 1 ACHS SQ Last administered on 08/21at 17:00; Start 08/16/17 at 08:00 Dextrose (D50w (Vial) Inj) 50 ml UNSCH PRN IV PUSH HYPOGLYCEMIA-SEE COMMENTS; Start 08/15/17 at 23:45 Glucagon (Glucagon Inj) 1 mg UNSCH PRN OTHER HYPOGLYCEMIA-SEE COMMENTS; Start 08/15/17 at 23:45 Alprazolam (Xanax) 0.25 mg Q4H PRN PO ANXIETY Last administered on 08/21/17at 15 :03; Start 08/15/17 at 23:45; Stop 08/21/17 at 18:50; Status DC Atorvastatin Calcium (Lipitor) 20 mg HS PO ; Start 08/16/17 at 21:00; Stop 08/16 at 21:00; Status DC Acetaminophen (Tylenol) 650 mg Q6H PRN PO FEVER/PAIN SCALE 1 TO 2 Last administered on 08/22/17at 20:46; Start 08/16/17 at 00:15 Acetaminophen/ Hydrocodone Bitart ([place] 5-325 Mg) 1 tab Q4H PRN PO PAIN SCALE 3 TO 5 Last administered on 08/23/17at 12:22; Start 08/16/17 at 00:15 Morphine Sulfate (Morphine Inj) 2 mg Q3H PRN IV PUSH Pain 6-10; Start 08/16/17 at 00:15 Senna/Docusate Sodium ([place]-Colace) 1 tab BID PO Last administered on at 08:14; Start 08/16/17 at 09:00 Magnesium Hydroxide (Milk Of Magnesia Liq) 30 ml Q12H PRN PO Mild constipation ; Start 08/16/17 at 00:15 Sennosides (Senokot) 17.2 mg Q12H PRN PO Moderate constipation Last administered on 08/22/17at 08:30; Start 08/16/17 at 00:15 Bisacodyl (Dulcolax Supp) 10 mg DAILY PRN RECTAL SEVERE CONSITIPATION; Start at 00:15 Lactulose (Lactulose Liq) 30 ml DAILY PRN PO SEVERE CONSITIPATION; Start at 00:15 Atorvastatin Calcium (Lipitor) 20 mg HS PO Last administered on 08/22/17at 20:46 ; Start 08/16/17 at 00:30 Aspirin (Ecotrin Ec) 325 mg DAILY PO Last administered on 08/16/17at 08:29; Start 08/16/17 at 09:00; Stop 08/16/17 at 15:32; Status DC Potassium Chloride (KCl) 40 meq ONCE ONCE PO Last administered on 08/16/17at 02 :55; Start 08/16/17 at 00:30; Stop 08/16/17 at 00:38; Status DC Ceftriaxone Sodium 2000 mg/ Sodium Chloride 100 ml @ 200 mls/hr Q12H IV Last administered on 08/22/17at 05:09; Start 08/16/17 at 18:00; Stop 08/22/17 at 12:00 ; Status DC Acyclovir Sodium 700 mg/Sodium Chloride 100 ml @ 100 mls/hr Q8H IV Last administered on 08/21/17at 09:10; Start 08/16/17 at 17:00; Stop 08/21/17 at 10:37 ; Status DC Methylprednisolone Sodium Succinate (SoluMEDROL INJ) 125 mg ONCE ONCE IV PUSH Last administered on 08/16/17at 16:58; Start 08/16/17 at 15:45; Stop 08/16/17 at 15:51; Status DC Methylprednisolone Sodium Succinate (SoluMEDROL INJ) 40 mg Q6HR IV PUSH Last administered on 08/17/17at 06:19; Start 08/17/17 at 00:00; Stop 08/17/17 at 10:24 ; Status DC Lactobacillus Acidophilus (Lactinex) 1 tab TID PO Last administered on at 12:20; Start 08/16/17 at 18:00 Gadodiamide (Omniscan Pf Inj) 15 ml STK-MED ONCE IVCONTRAST Last administered on 08/16/17at 16:39; Start 08/16/17 at 16:39; Stop 08/16/17 at 16:41; Status DC Methylprednisolone Sodium Succinate (SoluMEDROL INJ) 500 mg Q12HR IV PUSH ; Start 08/17/17 at 12:00; Status UNV Gadodiamide (Omniscan Pf Inj) 15 ml STK-MED ONCE IVCONTRAST Last administered on 08/17/17at 13:11; Start 08/17/17 at 13:11; Stop 08/17/17 at 13:12; Status DC Methylprednisolone Sodium Succinate 500 mg/Sodium Chloride 100 ml @ 200 mls/hr Q12H IV Last administered on 08/21/17at 15:03; Start 08/17/17 at 16:00; Stop at 21:00; Status DC Pantoprazole Sodium (Protonix) 20 mg DAILY PO Last administered on 08/23/17at 08 :14; Start 08/17/17 at 17:00 Potassium Chloride (KCl) 40 meq ONCE ONCE PO Last administered on 08/19/17at 12 :26; Start 08/19/17 at 12:30; Stop 08/19/17 at 12:31; Status DC Potassium Chloride (KCl) 30 meq ONCE ONCE PO Last administered on 08/20/17at 03 :39; Start 08/20/17 at 03:30; Stop 08/20/17 at 03:31; Status DC Potassium Chloride (KCl) 40 meq ONCE ONCE PO Last administered on 08/20/17at 08 :48; Start 08/20/17 at 08:00; Stop 08/20/17 at 08:04; Status DC Gadodiamide (Omniscan Pf Inj) 15 ml STK-MED ONCE IVCONTRAST Last administered on 08/21/17at 17:33; Start 08/21/17 at 17:30; Stop 08/21/17 at 17:32; Status DC Alprazolam (Xanax) 0.5 mg Q4H PRN PO ANXIETY Last administered on 08/22/17at 09: 12; Start 08/21/17 at 19:00 Carvedilol (Coreg) 12.5 mg BID PO Last administered on 08/23/17at 08:14; Start 08/22/17 at 09:00 Non-Formulary Medication 1 tab DAILY PO ; Start 08/22/17 at 09:00; Stop at 09:00; Status DC Losartan Potassium (Cozaar) 100 mg DAILY PO Last administered on 08/23/17at 08: 13; Start 08/22/17 at 09:00 Hydrochlorothiazide (Hydrodiuril) 12.5 mg DAILY PO Last administered on at 08:14; Start 08/22/17 at 09:00 Estrogens Conjugated (Premarin) 1.25 mg DAILY PO Last administered on at 08:15; Start 08/23/17 at 09:00 Gadodiamide (Omniscan Pf Inj) 15 ml STK-MED ONCE IVCONTRAST Last administered on 08/23/17at 07:35; Start 08/23/17 at 07:35; Stop 08/23/17 at 07:36; Status DC A/P Problem List: (1) Vision loss ICD Code: H54.7 - Unspecified visual loss Status: Acute (2) Hypokalemia ICD Code: E87.6 - Hypokalemia (3) HTN (hypertension) ICD Code: I10 - Essential (primary) hypertension Status: Chronic Assessment and Plan 62-year-old female admitted secondary to peripheral vision loss Progressive peripheral vision loss, differential diagnosis of the demyelination , inflammatory versus encephalitis; stroke has been ruled out Patient states symptom has not improved nor worsened -Head CT reviewed, no acute findings -Brain MRI with multifocal areas of abnormal edema; uncertain etiology, concerning for an infectious vs inflammatory process (pituitary normal). -head MRA unremarkable neg but Thoracic spine w no finding suggestive of MS. -Neurology consulted, appreciate Dr. Lemus's recommendations. Repeat MRI of the brain completed 08/21 reviewed. Will obtain MRV of the brain today along neurosurgical evaluation to consideration for brain biopsy for further evaluation. -S/p LP, CSF studies pending, so far unremarkable -Complete day 5 of high dose IV solu-medrol. -HIV non reactive, RPR non reactive. Lyme antibodies, anti-NMO antibodies, pathology pending, MS panel currently pending -PT OT evaluation, no PT needed at discharge -Continue statin -ID also following. Continue on empiric IV rocephin and dc acyclovir due to HSV negative -Ophthalmology, Dr. Nelson consulted, appreciate input and recommendations For brain biopsy temporal lobe on Friday by Dr. Terrell Hypertension: BP stable and home medication has been restarted due to elevation overnight. -Continue with Coreg, Cozaar and HCTZ. Will continue to monitor. Hypokalemia: acute -Repleted DVT prophylaxis: SCDs For her brain biopsy temporal lobe on Friday Discharge Planning Biopsy is scheduled for Friday with Dr. Terrell of left temporal lobe Problem Qualifiers (1) HTN (hypertension): Qualified Codes: I10 - Essential (primary) hypertension Rosales Lam DO Aug 23, 2017 14:57
[2017-08-23] MEDS ORDERED: POTASSIUM CHLORIDE 20 MEQ CONTROLLED RELEASE TAB PO ONE ×2 (15:00→17:00)
[2017-08-23] MEDS: ALPRAZolam 0.5 MG TAB PO PRN (16:04)
[2017-08-23 20:00] VITALS: BP 125/79; PULSE 80; RESP 20; TEMP 97.6; O2SAT 95
[2017-08-23] MEDS: ATORVASTATIN 20 MG TAB PO SCH (20:25)
[2017-08-24] VITALS: BP 134/86; PULSE 83; RESP 20; TEMP 98.5; O2SAT 94
[2017-08-24 04:00] VITALS: BP 111/66; PULSE 76; RESP 18; TEMP 97.9; O2SAT 96
[2017-08-24 06:07] LABS: AUTOMATED NEUTROPHIL # 5.8 TH/MM3 (1.8-7.7); BASOPHIL % 0.1 % (0.0-2.0); EOSINOPHIL # 0.2 TH/MM3 (0-0.4); EOSINOPHIL % 1.9 % (0.0-4.0); HEMATOCRIT 40.9 % (35.0-46.0); HEMOGLOBIN 13.8 GM/DL (11.6-15.3); LYMPH % 31.7 % (9.0-44.0); LYMPHOCYTE # 3.1 TH/MM3 (1.0-4.8); MEAN CELL VOLUME 88.8 FL (80.0-100.0); MEAN CORPUSCULAR HGB CONC 33.8 % (32.0-36.0); MEAN PLATELET VOLUME 7.3 FL (7.0-11.0); MONO % 7.6 % (0.0-8.0); MONOCYTE # 0.7 TH/MM3 (0-0.9); NEUT % 58.7 % (16.0-70.0); PLATELET COUNT 250 TH/MM3 (150-450); RED BLOOD COUNT 4.61 MIL/MM3 (4.00-5.30); RED CELL DISTRIBUTION WIDTH 13.6 % (11.6-17.2); WHITE BLOOD COUNT 9.8 TH/MM3 (4.0-11.0)
[2017-08-24 06:28] LABS: AST (GOT) 29 U/L (15-37); BICARBONATE 24.1 MEQ/L (21.0-32.0); BLOOD UREA NITROGEN 28 MG/DL (7-18); CALCIUM 8.3 MG/DL (8.5-10.1); CHLORIDE 111 MEQ/L (98-107); GLOMERULAR FILTRATION RATE 102 ML/MIN (>89); GLUCOSE,RANDOM 80 MG/DL (74-106); MAGNESIUM 2.4 MG/DL (1.5-2.5); SODIUM (NA) 146 MEQ/L (136-145)
[2017-08-24 06:38] LABS: ALKALINE PHOSPHATASE 42 U/L (45-117); ALT (GPT) 113 U/L (10-53); FREE T4 1.18 NG/DL (0.76-1.46); PHOSPHORUS 4.3 MG/DL (2.5-4.9); TOTAL BILIRUBIN ADULT 0.7 MG/DL (0.2-1.0); TOTAL PROTEIN 5.9 GM/DL (6.4-8.2)
[2017-08-24] MEDS: ACETAMINOPHEN/HYDROcodone 325 MG/5 MG TAB PO PRN ×2 (06:45→17:35)
[2017-08-24 08:00] VITALS: BP 130/83; PULSE 72; RESP 16; TEMP 98; O2SAT 96
[2017-08-24] MEDS: ALPRAZolam 0.5 MG TAB PO PRN ×2 (09:46→20:56)
[2017-08-24] MEDS: ESTROGENS CONJUGATED 1.25 MG TAB PO SCH (09:47)
[2017-08-24] MEDS: HYDROCHLOROTHIAZIDE 25 MG TAB PO SCH (09:48)
[2017-08-24] MEDS: LOSARTAN 50 MG TAB PO SCH (09:48)
[2017-08-24] MEDS: SODIUM CHLORIDE 0.9% FLUSH 10 ML FLUSH IV FLUSH SCH ×2 (09:49→20:58)
[2017-08-24] MEDS: CARVEDILOL 12.5 MG TAB PO SCH ×2 (09:49→20:56)
[2017-08-24] MEDS: LACTOBACILLUS ACIDOPHILUS TAB PO SCH ×3 (09:50→17:33)
[2017-08-24] MEDS: DOCUSATE SODIUM 50 MG/SENNA 8.6 MG TAB PO SCH ×2 (09:50→20:56)
[2017-08-24] MEDS: PANTOPRAZOLE SOD 20 MG DELAYED RELEASE TAB PO SCH (09:50)
[2017-08-24] MEDS: MORPHINE SULFATE 4 MG/ML INJ IV PUSH PRN ×3 (09:55→20:56)
--- NOTE | 2017-08-24 11:34 | HHI.PR ---
Subjective Remarks 08-22 Worried about her finances and being here in the hospital. She reports no changes in her vision. Symptoms are not improved but not worse. No headaches and no focalized weakness or numbness 08-23 IS SCHEDULED FOR BRAIN BIOPSY IN TEMPORAL LOBE ON FRIDAY WITH DR TEE ZHANG RN AND PT AND CM DC ACCUCHECKS SINCE OFF STEROIDS Still having visual field cut issues 08-24 SCHEDULED FOR SURGERY ON FRIDAY STILL HAVING VISUAL FIELD CUT ISSUES HAS SOME PAIN- NOT TAKING PAIN MEDS BY HER CHOICE HAS PAIN MEDS AVAILABLE LEATHA RN AND PT AND FAMILY AND CM Objective Vitals Vital Signs Date Time Temp Pulse Resp B/P (MAP) Pulse Ox O2 Delivery O2 Flow Rate FiO2 08/24/17 10:09 20 08/24/17 07:45 19 08/24/17 04:00 97.9 76 18 111/66 (81) 96 08/24/17 00:00 98.5 83 20 134/86 (102) 94 08/23/17 20:00 97.6 80 20 125/79 (94) 95 08/23/17 14:00 98.3 75 16 110/53 (72) 94 I/O 08/23/17 08/23/17 08/23/17 08/24/17 08/24/17 08/24/17 07:00 15:00 23:00 07:00 15:00 23:00 Intake Total 480 ml 1680 ml Balance 480 ml 1680 ml Intake Oral 480 ml 1680 ml # Voids 3 8 # Bowel Movements 0 3 Result Diagram: 08/24/17 0511 08/24/17 0511 Other Results Laboratory Tests Test 08/24/17 05:11 White Blood Count 9.8 TH/MM3 Red Blood Count 4.61 MIL/MM3 Hemoglobin 13.8 GM/DL Hematocrit 40.9 % Mean Corpuscular Volume 88.8 FL Mean Corpuscular Hemoglobin 30.0 PG Mean Corpuscular Hemoglobin Concent 33.8 % Red Cell Distribution Width 13.6 % Platelet Count 250 TH/MM3 Mean Platelet Volume 7.3 FL Neutrophils (%) (Auto) 58.7 % Lymphocytes (%) (Auto) 31.7 % Monocytes (%) (Auto) 7.6 % Eosinophils (%) (Auto) 1.9 % Basophils (%) (Auto) 0.1 % Neutrophils # (Auto) 5.8 TH/MM3 Lymphocytes # (Auto) 3.1 TH/MM3 Monocytes # (Auto) 0.7 TH/MM3 Eosinophils # (Auto) 0.2 TH/MM3 Basophils # (Auto) 0.0 TH/MM3 CBC Comment AUTO DIFF Differential Comment AUTO DIFF CONFIRMED Blood Urea Nitrogen 28 MG/DL Creatinine 0.60 MG/DL Random Glucose 80 MG/DL Total Protein 5.9 GM/DL Albumin 3.0 GM/DL Calcium Level 8.3 MG/DL Phosphorus Level 4.3 MG/DL Magnesium Level 2.4 MG/DL Alkaline Phosphatase 42 U/L Aspartate Amino Transf (AST/SGOT) 29 U/L Alanine Aminotransferase (ALT/SGPT) 113 U/L Total Bilirubin 0.7 MG/DL Sodium Level 146 MEQ/L Potassium Level 4.0 MEQ/L Chloride Level 111 MEQ/L Carbon Dioxide Level 24.1 MEQ/L Anion Gap 11 MEQ/L Estimat Glomerular Filtration Rate 102 ML/MIN Free Thyroxine 1.18 NG/DL Thyroid Stimulating Hormone 3rd Gen 0.861 uIU/ML Imaging Last Impressions Head/Brain Mag Res Venography 08/23/17 0000 Signed Impressions: CONCLUSION: 1. No findings to indicate venous sinus thrombosis identified. Brain MRI 08/21/17 0000 Signed Impressions: CONCLUSION: 1. There are scattered areas of abnormal T2 signal within the brain parenchyma specifically involving the anterior aspect of the right temporal lobe, the rig ht hippocampal gyri, the pulvinar of the thalamus and the posterior parieto-occ ipital cortex on the left. Differential considerations would include an encepha litis alternatively, the overall appearance of the sagittal sinus and proximal transverse sinuses is abnormal in the exam would raise concern for a venous sin us thrombosis. CT venogram or MR venogram is warranted for further assessment. If lumbar puncture has not been performed this should be a consideration. The o verall appearance of the signal abnormalities is nonspecific. Lumbar Puncture Fluoroscopy 08/18/17 0000 Signed Impressions: CONCLUSION: 1. Uncomplicated fluoroscopically guided lumbar puncture. Thoracic Spine MRI 08/17/17 0000 Signed Impressions: CONCLUSION: 1. Spinal cord has a normal appearance. There are no findings to indicate mult iple sclerosis involvement of the thoracic spinal cord. 2. Mild degenerative disc disease at T11-T12. No canal stenosis or neural fora chelsie narrowing is present. Head Magnetic Resonance Angiography 08/16/17 0000 Signed Impressions: CONCLUSION: No intracranial arterial vascular abnormality is identified. Cervical Spine MRI 08/16/17 0000 Signed Impressions: CONCLUSION: 1. No cord signal abnormalities to suggest multiple sclerosis. 2. Degenerative disc disease most severe at C5-6-7 where there is mild impress ion on the anterior surface of the cord. Slight reversal of normal cervical nohemy dosis. Head CT 08/15/17 Signed Impressions: CONCLUSION: 1. No acute intracranial abnormalities. Chest X-Ray 08/15/17 Signed Impressions: CONCLUSION: Minimal linear scarring or atelectasis left base. Otherwise no acute findings. Objective Remarks GENERAL: Still having visual field cut issues-awake alert and oriented 3 talkative and cooperative SKIN: Warm and dry. HEAD: Atraumatic. Normocephalic. EYES: Pupils equal and round. No scleral icterus. No injection or drainage. Having visual field cut issues ENT: No nasal bleeding or discharge. Mucous membranes pink and moist. NECK: Trachea midline. No JVD. CARDIOVASCULAR: Regular rate and rhythm. S1-S2 no S3 or S4 RESPIRATORY: No accessory muscle use. Clear to auscultation. Breath sounds equal bilaterally. GASTROINTESTINAL: Abdomen soft, non-tender, nondistended. Hepatic and splenic margins not palpable. MUSCULOSKELETAL: Extremities without clubbing, cyanosis, or edema. No obvious deformities. NEUROLOGICAL: Awake and alert. No obvious cranial nerve deficits. Motor grossly within normal limits. 4 out of 5 muscle strength in the arms and legs. Normal speech. PSYCHIATRIC: Appropriate mood and affect; insight and judgment normal. Medications and IVs Current Medications Sodium Chloride (NS Flush) 2 ml BID IV FLUSH Last administered on 08/24/17at 09: 49; Start 08/16/17 at 09:00 Sodium Chloride (NS Flush) 2 ml UNSCH PRN IV FLUSH FLUSH AFTER USING IV ACCESS Last administered on 08/22/17at 05:09; Start 08/15/17 at 23:45 Sodium Chloride 1,000 ml @ 70 mls/hr [id number] IV Last administered on at 08:18; Start 08/15/17 at 23:44; Stop 08/18/17 at 15:07; Status DC Enalaprilat (Vasotec Inj) 1.25 mg Q4H PRN IV PUSH For SBP > 220 or DBP > 120; Start 08/15/17 at 23:45 Aspirin (Aspirin Chew) 81 mg DAILY PO ; Start 08/16/17 at 09:00; Stop 08/16/17 at 09:00; Status DC Insulin Aspart (NovoLOG SUPPLEMENTAL SCALE) 1 ACHS SQ Last administered on 08/21at 17:00; Start 08/16/17 at 08:00; Stop 08/23/17 at 14:57; Status DC Dextrose (D50w (Vial) Inj) 50 ml UNSCH PRN IV PUSH HYPOGLYCEMIA-SEE COMMENTS; Start 08/15/17 at 23:45; Stop 08/23/17 at 14:57; Status DC Glucagon (Glucagon Inj) 1 mg UNSCH PRN OTHER HYPOGLYCEMIA-SEE COMMENTS; Start 08/15/17 at 23:45; Stop 08/23/17 at 14:57; Status DC Alprazolam (Xanax) 0.25 mg Q4H PRN PO ANXIETY Last administered on 08/21/17at 15 :03; Start 08/15/17 at 23:45; Stop 08/21/17 at 18:50; Status DC Atorvastatin Calcium (Lipitor) 20 mg HS PO ; Start 08/16/17 at 21:00; Stop 08/16 at 21:00; Status DC Acetaminophen (Tylenol) 650 mg Q6H PRN PO FEVER/PAIN SCALE 1 TO 2 Last administered on 08/22/17at 20:46; Start 08/16/17 at 00:15 Acetaminophen/ Hydrocodone Bitart ([place] 5-325 Mg) 1 tab Q4H PRN PO PAIN SCALE 3 TO 5 Last administered on 08/24/17at 06:45; Start 08/16/17 at 00:15 Morphine Sulfate (Morphine Inj) 2 mg Q3H PRN IV PUSH Pain 6-10; Start 08/16/17 at 00:15; Stop 08/24/17 at 09:48; Status DC Senna/Docusate Sodium ([place]-Colace) 1 tab BID PO Last administered on at 09:50; Start 08/16/17 at 09:00 Magnesium Hydroxide (Milk Of Magnesia Liq) 30 ml Q12H PRN PO Mild constipation ; Start 08/16/17 at 00:15 Sennosides (Senokot) 17.2 mg Q12H PRN PO Moderate constipation Last administered on 08/22/17 08:30; Start 08/16/17 at 00:15 Bisacodyl (Dulcolax Supp) 10 mg DAILY PRN RECTAL SEVERE CONSITIPATION; Start at 00:15 Lactulose (Lactulose Liq) 30 ml DAILY PRN PO SEVERE CONSITIPATION; Start at 00:15 Atorvastatin Calcium (Lipitor) 20 mg HS PO Last administered on 08/23/17at 20:25 ; Start 08/16/17 at 00:30 Aspirin (Ecotrin Ec) 325 mg DAILY PO Last administered on 08/16/17at 08:29; Start 08/16/17 at 09:00; Stop 08/16/17 at 15:32; Status DC Potassium Chloride (KCl) 40 meq ONCE ONCE PO Last administered on 08/16/17at 02 :55; Start 08/16/17 at 00:30; Stop 08/16/17 at 00:38; Status DC Ceftriaxone Sodium 2000 mg/ Sodium Chloride 100 ml @ 200 mls/hr Q12H IV Last administered on 08/22/17at 05:09; Start 08/16/17 at 18:00; Stop 08/22/17 at 12:00 ; Status DC Acyclovir Sodium 700 mg/Sodium Chloride 100 ml @ 100 mls/hr Q8H IV Last administered on 08/21/17at 09:10; Start 08/16/17 at 17:00; Stop 08/21/17 at 10:37 ; Status DC Methylprednisolone Sodium Succinate (SoluMEDROL INJ) 125 mg ONCE ONCE IV PUSH Last administered on 08/16/17at 16:58; Start 08/16/17 at 15:45; Stop 08/16/17 at 15:51; Status DC Methylprednisolone Sodium Succinate (SoluMEDROL INJ) 40 mg Q6HR IV PUSH Last administered on 08/17/17at 06:19; Start 08/17/17 at 00:00; Stop 08/17/17 at 10:24 ; Status DC Lactobacillus Acidophilus (Lactinex) 1 tab TID PO Last administered on at 09:50; Start 08/16/17 at 18:00 Gadodiamide (Omniscan Pf Inj) 15 ml STK-MED ONCE IVCONTRAST Last administered on 08/16/17at 16:39; Start 08/16/17 at 16:39; Stop 08/16/17 at 16:41; Status DC Methylprednisolone Sodium Succinate (SoluMEDROL INJ) 500 mg Q12HR IV PUSH ; Start 08/17/17 at 12:00; Status UNV Gadodiamide (Omniscan Pf Inj) 15 ml STK-MED ONCE IVCONTRAST Last administered on 08/17/17at 13:11; Start 08/17/17 at 13:11; Stop 08/17/17 at 13:12; Status DC Methylprednisolone Sodium Succinate 500 mg/Sodium Chloride 100 ml @ 200 mls/hr Q12H IV Last administered on 08/21/17at 15:03; Start 08/17/17 at 16:00; Stop at 21:00; Status DC Pantoprazole Sodium (Protonix) 20 mg DAILY PO Last administered on 08/24/17at 09 :50; Start 08/17/17 at 17:00 Potassium Chloride (KCl) 40 meq ONCE ONCE PO Last administered on 08/19/17at 12 :26; Start 08/19/17 at 12:30; Stop 08/19/17 at 12:31; Status DC Potassium Chloride (KCl) 30 meq ONCE ONCE PO Last administered on 08/20/17at 03 :39; Start 08/20/17 at 03:30; Stop 08/20/17 at 03:31; Status DC Potassium Chloride (KCl) 40 meq ONCE ONCE PO Last administered on 08/20/17at 08 :48; Start 08/20/17 at 08:00; Stop 08/20/17 at 08:04; Status DC Gadodiamide (Omniscan Pf Inj) 15 ml STK-MED ONCE IVCONTRAST Last administered on 08/21/17at 17:33; Start 08/21/17 at 17:30; Stop 08/21/17 at 17:32; Status DC Alprazolam (Xanax) 0.5 mg Q4H PRN PO ANXIETY Last administered on 08/24/17at 09: 46; Start 08/21/17 at 19:00 Carvedilol (Coreg) 12.5 mg BID PO Last administered on 08/24/17at 09:49; Start 08/22/17 at 09:00 Non-Formulary Medication 1 tab DAILY PO ; Start 08/22/17 at 09:00; Stop at 09:00; Status DC Losartan Potassium (Cozaar) 100 mg DAILY PO Last administered on 08/24/17at 09: 48; Start 08/22/17 at 09:00 Hydrochlorothiazide (Hydrodiuril) 12.5 mg DAILY PO Last administered on at 09:48; Start 08/22/17 at 09:00 Estrogens Conjugated (Premarin) 1.25 mg DAILY PO Last administered on at 09:47; Start 08/23/17 at 09:00 Gadodiamide (Omniscan Pf Inj) 15 ml STK-MED ONCE IVCONTRAST Last administered on 08/23/17at 07:35; Start 08/23/17 at 07:35; Stop 08/23/17 at 07:36; Status DC Potassium Chloride (KCl) 40 meq ONCE ONCE PO Last administered on 08/23/17at 16 :04; Start 08/23/17 at 15:00; Stop 08/23/17 at 15:01; Status DC Potassium Chloride (KCl) 40 meq ONCE ONCE PO Last administered on 08/23/17at 17 :47; Start 08/23/17 at 17:00; Stop 08/23/17 at 17:01; Status DC Morphine Sulfate (Morphine Inj) 2 mg Q3H PRN IV PUSH Pain 6-10 Last administered on 08/24/17at 09:55; Start 08/24/17 at 10:00 A/P Problem List: (1) Vision loss ICD Code: H54.7 - Unspecified visual loss Status: Acute (2) Hypokalemia ICD Code: E87.6 - Hypokalemia (3) HTN (hypertension) ICD Code: I10 - Essential (primary) hypertension Status: Chronic Assessment and Plan 62-year-old female admitted secondary to peripheral vision loss Progressive peripheral vision loss, differential diagnosis of the demyelination , inflammatory versus encephalitis; stroke has been ruled out Patient states symptom has not improved nor worsened -Head CT reviewed, no acute findings -Brain MRI with multifocal areas of abnormal edema; uncertain etiology, concerning for an infectious vs inflammatory process (pituitary normal). -head MRA unremarkable neg but Thoracic spine w no finding suggestive of MS. -Neurology consulted, appreciate Dr. Lemus's recommendations. Repeat MRI of the brain completed 08/21 reviewed. Will obtain MRV of the brain today along neurosurgical evaluation to consideration for brain biopsy for further evaluation. -S/p LP, CSF studies pending, so far unremarkable -Complete day 5 of high dose IV solu-medrol. -HIV non reactive, RPR non reactive. Lyme antibodies, anti-NMO antibodies, pathology pending, MS panel currently pending -PT OT evaluation, no PT needed at discharge -Continue statin -ID also following. Continue on empiric IV rocephin and dc acyclovir due to HSV negative -Ophthalmology, Dr. Nelson consulted, appreciate input and recommendations For brain biopsy temporal lobe on Friday by Dr. Terrell Hypertension: BP stable and home medication has been restarted due to elevation overnight. -Continue with Coreg, Cozaar and HCTZ. Will continue to monitor. Hypokalemia: acute -Repleted DVT prophylaxis: SCDs For her brain biopsy temporal lobe on Friday Discharge Planning Biopsy is scheduled for Friday with Dr. Terrell of left temporal lobe Problem Qualifiers (1) HTN (hypertension): Qualified Codes: I10 - Essential (primary) hypertension Rosales Lam DO Aug 24, 2017 11:34
--- NOTE | 2017-08-24 12:11 | HHI.NSPN ---
(Maribell Barragan) Note Status Status: Progress Note (Maribell Barragan) Status: Progress Note (Gallito Terrell MD) Interval History Interval History 70-year-old female with a PMH of HTN, Cholelithiasis and Tobacco Abuse who was referred to the ER by her [employer] for vision loss and concern for stroke. She has been seeing floaters and reduced vision in her peripheral p[place]co. States past few days she is seeing some blurriness in vision flashes of light white and red in the periphery. 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 Apparently normal funduscopic exam. She denies any headache trauma vertigo focal weakness or gait imbalance. Denies previous h/o similar symptoms. Takes ASA 81mg qd in addition to Lipitor. On arrival, BP 161/100. CT Head negative. Denies any history of hypercoagulable state, lupus or DVT or A. fib. No family history of stroke. States she smokes only when she is driving. 08/24: plan for brain biopsy Friday. (Maribell Barragan) Diagnosis Brain lesion Interval History This is a 70-year-old female with a PMH of HTN, Cholelithiasis and Tobacco Abuse who was referred to the ER by her [employer] for vision loss and concern for stroke. She has been seeing floaters and reduced vision in her peripheral pacheco. States past few days she is seeing some blurriness in vision flashes of light white and red in the periphery. 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 Apparently normal funduscopic exam. She denies any headache trauma vertigo focal weakness or gait imbalance. Denies previous h/o similar symptoms. Takes ASA 81mg qd in addition to Lipitor. On arrival, BP 161/100. CT Head negative. Denies any history of hypercoagulable state, lupus or DVT or A. fib. No family history of stroke. States she smokes only when she is driving. 08/23. CSF results were negative. Will need to undergo a biopsy of the btrain lesion (Gallito Terrell MD) Labs, Micro, & Vital Signs Results Date Time Temp Pulse Resp B/P (MAP) Pulse Ox O2 Delivery O2 Flow Rate FiO2 08/24/17 10:09 20 08/24/17 07:45 19 08/24/17 04:00 97.9 76 18 111/66 (81) 96 08/24/17 00:00 98.5 83 20 134/86 (102) 94 08/23/17 20:00 97.6 80 20 125/79 (94) 95 08/23/17 14:00 98.3 75 16 110/53 (72) 94 Constitutional Vital Signs Date Time Temp Pulse Resp B/P (MAP) Pulse Ox O2 Delivery O2 Flow Rate FiO2 08/24/17 10:09 20 08/24/17 07:45 19 08/24/17 04:00 97.9 76 18 111/66 (81) 96 08/24/17 00:00 98.5 83 20 134/86 (102) 94 08/23/17 20:00 97.6 80 20 125/79 (94) 95 08/23/17 14:00 98.3 75 16 110/53 (72) 94 (Maribell Barragan) Review of Systems Constitutional: DENIES: Fever Eyes: COMPLAINS OF: Vision loss, Photosensitivity Cardiovascular: DENIES: Chest pain Neurologic: DENIES: Seizures (Mariblel Barragan) Physical Exam Ms. Amor is in bed comfortable in no acute distress Alert, awake. Speech is fluent, conversing well. Higher cognitive functions are normal. Facial motor are normal and symmetrical. Gross hearing intact. Motor: moving all four extremities well (Maribell Barragan) Ms Amor is alert, awake and oriented to time, place and person. Speech is fluent. Cranial nerve examination: pupils to be equal, round and reactive to light. Extra-ocular movements are intact. Visual field deficit, poorly characterized Facial motor and sensory function are normal and symmetrical. Gross hearing appears intact. Sternocleidomastoid and trapezius muscles are symmetrical. Other cranial nerves are intact. Neck is soft and supple with a good range of motion without pain. Muscle strength is normal in all muscle groups of both upper and lower extremities. Sensory examination is intact to light touch and pin prick in both the upper and lower extremities. Deep tendon reflexes are symmetrical in both upper and lower extremities. There is a bilateral plantar flexion response. Cerebellar examination is unremarkable, without deficits. Respiratory: Non-labored respirations, BS equal, Symmetrical expansion, No chest wall tenderness Cardiology: Normal rate, No edema Musculoskeletal: Normal ROM Psychiatric: Cooperative, Appropriate mood & affect Skin warm and dry (Gallito Terrell MD) Medications Current Medications Current Medications Medications (Trade) Dose Ordered Sig/Madeleine Route PRN Reason Start Time Stop Time Status Last Admin Dose Admin Sodium Chloride (NS Flush) 2 ml BID IV FLUSH 08/16/17 09:00 08/24/17 09:49 Sodium Chloride (NS Flush) 2 ml UNSCH PRN IV FLUSH FLUSH AFTER USING IV ACCESS 08/15/17 23:45 08/22/17 05:09 Enalaprilat (Vasotec Inj) 1.25 mg Q4H PRN IV PUSH For SBP > 220 or DBP > 120 08/15/17 23:45 Acetaminophen (Tylenol) 650 mg Q6H PRN PO FEVER/PAIN SCALE 1 TO 2 08/16/17 00:15 08/22/17 20:46 Acetaminophen/ Hydrocodone Bitart (Mulino 5-325 Mg) 1 tab Q4H PRN PO PAIN SCALE 3 TO 5 08/16/17 00:15 08/24/17 06:45 Senna/Docusate Sodium (Marychuy-Colace) 1 tab BID PO 08/16/17 09:00 08/24/17 09:50 Magnesium Hydroxide (Milk Of Magnesia Liq) 30 ml Q12H PRN PO Mild constipation 08/16/17 00:15 Sennosides (Senokot) 17.2 mg Q12H PRN PO Moderate constipation 08/16/17 00:15 08/22/17 08:30 Bisacodyl (Dulcolax Supp) 10 mg DAILY PRN RECTAL SEVERE CONSITIPATION 08/16/17 00:15 Lactulose (Lactulose Liq) 30 ml DAILY PRN PO SEVERE CONSITIPATION 08/16/17 00:15 Atorvastatin Calcium (Lipitor) 20 mg HS PO 08/16/17 00:30 08/23/17 20:25 Lactobacillus Acidophilus (Lactinex) 1 tab TID PO 08/16/17 18:00 08/24/17 09:50 Pantoprazole Sodium (Protonix) 20 mg DAILY PO 08/17/17 17:00 08/24/17 09:50 Alprazolam (Xanax) 0.5 mg Q4H PRN PO ANXIETY 08/21/17 19:00 08/24/17 09:46 Carvedilol (Coreg) 12.5 mg BID PO 08/22/17 09:00 08/24/17 09:49 Losartan Potassium (Cozaar) 100 mg DAILY PO 08/22/17 09:00 08/24/17 09:48 Hydrochlorothiazide (Hydrodiuril) 12.5 mg DAILY PO 08/22/17 09:00 08/24/17 09:48 Estrogens Conjugated (Premarin) 1.25 mg DAILY PO 08/23/17 09:00 08/24/17 09:47 Morphine Sulfate (Morphine Inj) 2 mg Q3H PRN IV PUSH Pain 6-08/24/17 10:00 08/24/17 09:55 (Maribell Barragan) Current Medications Current Medications Sodium Chloride (NS Flush) 2 ml BID IV FLUSH Last administered on 08/24/17at 09: 49; Start 08/16/17 at 09:00 Sodium Chloride (NS Flush) 2 ml UNSCH PRN IV FLUSH FLUSH AFTER USING IV ACCESS Last administered on 08/22/17at 05:09; Start 08/15/17 at 23:45 Sodium Chloride 1,000 ml @ 70 mls/hr [id number] IV Last administered on at 08:18; Start 08/15/17 at 23:44; Stop 08/18/17 at 15:07; Status DC Enalaprilat (Vasotec Inj) 1.25 mg Q4H PRN IV PUSH For SBP > 220 or DBP > 120; Start 08/15/17 at 23:45 Aspirin (Aspirin Chew) 81 mg DAILY PO ; Start 08/16/17 at 09:00; Stop 08/16/17 at 09:00; Status DC Insulin Aspart (NovoLOG SUPPLEMENTAL SCALE) 1 ACHS SQ Last administered on 08/21at 17:00; Start 08/16/17 at 08:00; Stop 08/23/17 at 14:57; Status DC Dextrose (D50w (Vial) Inj) 50 ml UNSCH PRN IV PUSH HYPOGLYCEMIA-SEE COMMENTS; Start 08/15/17 at 23:45; Stop 08/23/17 at 14:57; Status DC Glucagon (Glucagon Inj) 1 mg UNSCH PRN OTHER HYPOGLYCEMIA-SEE COMMENTS; Start 08/15/17 at 23:45; Stop 08/23/17 at 14:57; Status DC Alprazolam (Xanax) 0.25 mg Q4H PRN PO ANXIETY Last administered on 08/21/17at 15 :03; Start 08/15/17 at 23:45; Stop 08/21/17 at 18:50; Status DC Atorvastatin Calcium (Lipitor) 20 mg HS PO ; Start 08/16/17 at 21:00; Stop 08/16 at 21:00; Status DC Acetaminophen (Tylenol) 650 mg Q6H PRN PO FEVER/PAIN SCALE 1 TO 2 Last administered on 08/22/17at 20:46; Start 08/16/17 at 00:15 Acetaminophen/ Hydrocodone Bitart (Mulino 5-325 Mg) 1 tab Q4H PRN PO PAIN SCALE 3 TO 5 Last administered on 08/24/17at 06:45; Start 08/16/17 at 00:15 Morphine Sulfate (Morphine Inj) 2 mg Q3H PRN IV PUSH Pain 6-10; Start 08/16/17 at 00:15; Stop 08/24/17 at 09:48; Status DC Senna/Docusate Sodium (Marychuy-Colace) 1 tab BID PO Last administered on at 09:50; Start 08/16/17 at 09:00 Magnesium Hydroxide (Milk Of Magnesia Liq) 30 ml Q12H PRN PO Mild constipation ; Start 08/16/17 at 00:15 Sennosides (Senokot) 17.2 mg Q12H PRN PO Moderate constipation Last administered on 08/22/17at 08:30; Start 08/16/17 at 00:15 Bisacodyl (Dulcolax Supp) 10 mg DAILY PRN RECTAL SEVERE CONSITIPATION; Start at 00:15 Lactulose (Lactulose Liq) 30 ml DAILY PRN PO SEVERE CONSITIPATION; Start at 00:15 Atorvastatin Calcium (Lipitor) 20 mg HS PO Last administered on 08/23/17at 20:25 ; Start 08/16/17 at 00:30 Aspirin (Ecotrin Ec) 325 mg DAILY PO Last administered on 08/16/17at 08:29; Start 08/16/17 at 09:00; Stop 08/16/17 at 15:32; Status DC Potassium Chloride (KCl) 40 meq ONCE ONCE PO Last administered on 08/16/17at 02 :55; Start 08/16/17 at 00:30; Stop 08/16/17 at 00:38; Status DC Ceftriaxone Sodium 2000 mg/ Sodium Chloride 100 ml @ 200 mls/hr Q12H IV Last administered on 08/22/17at 05:09; Start 08/16/17 at 18:00; Stop 08/22/17 at 12:00 ; Status DC Acyclovir Sodium 700 mg/Sodium Chloride 100 ml @ 100 mls/hr Q8H IV Last administered on 08/21/17at 09:10; Start 08/16/17 at 17:00; Stop 08/21/17 at 10:37 ; Status DC Methylprednisolone Sodium Succinate (SoluMEDROL INJ) 125 mg ONCE ONCE IV PUSH Last administered on 08/16/17at 16:58; Start 08/16/17 at 15:45; Stop 08/16/17 at 15:51; Status DC Methylprednisolone Sodium Succinate (SoluMEDROL INJ) 40 mg Q6HR IV PUSH Last administered on 08/17/17at 06:19; Start 08/17/17 at 00:00; Stop 08/17/17 at 10:24 ; Status DC Lactobacillus Acidophilus (Lactinex) 1 tab TID PO Last administered on at 13:17; Start 08/16/17 at 18:00 Gadodiamide (Omniscan Pf Inj) 15 ml STK-MED ONCE IVCONTRAST Last administered on 08/16/17at 16:39; Start 08/16/17 at 16:39; Stop 08/16/17 at 16:41; Status DC Methylprednisolone Sodium Succinate (SoluMEDROL INJ) 500 mg Q12HR IV PUSH ; Start 08/17/17 at 12:00; Status UNV Gadodiamide (Omniscan Pf Inj) 15 ml STK-MED ONCE IVCONTRAST Last administered on 08/17/17at 13:11; Start 08/17/17 at 13:11; Stop 08/17/17 at 13:12; Status DC Methylprednisolone Sodium Succinate 500 mg/Sodium Chloride 100 ml @ 200 mls/hr Q12H IV Last administered on 08/21/17at 15:03; Start 08/17/17 at 16:00; Stop at 21:00; Status DC Pantoprazole Sodium (Protonix) 20 mg DAILY PO Last administered on 08/24/17at 09 :50; Start 08/17/17 at 17:00 Potassium Chloride (KCl) 40 meq ONCE ONCE PO Last administered on 08/19/17at 12 :26; Start 08/19/17 at 12:30; Stop 08/19/17 at 12:31; Status DC Potassium Chloride (KCl) 30 meq ONCE ONCE PO Last administered on 08/20/17at 03 :39; Start 08/20/17 at 03:30; Stop 08/20/17 at 03:31; Status DC Potassium Chloride (KCl) 40 meq ONCE ONCE PO Last administered on 08/20/17at 08 :48; Start 08/20/17 at 08:00; Stop 08/20/17 at 08:04; Status DC Gadodiamide (Omniscan Pf Inj) 15 ml STK-MED ONCE IVCONTRAST Last administered on 08/21/17at 17:33; Start 08/21/17 at 17:30; Stop 08/21/17 at 17:32; Status DC Alprazolam (Xanax) 0.5 mg Q4H PRN PO ANXIETY Last administered on 08/24/17at 09: 46; Start 08/21/17 at 19:00 Carvedilol (Coreg) 12.5 mg BID PO Last administered on 08/24/17at 09:49; Start 08/22/17 at 09:00 Non-Formulary Medication 1 tab DAILY PO ; Start 08/22/17 at 09:00; Stop at 09:00; Status DC Losartan Potassium (Cozaar) 100 mg DAILY PO Last administered on 08/24/17at 09: 48; Start 08/22/17 at 09:00 Hydrochlorothiazide (Hydrodiuril) 12.5 mg DAILY PO Last administered on 09:48; Start 08/22/17 at 09:00 Estrogens Conjugated (Premarin) 1.25 mg DAILY PO Last administered on at 09:47; Start 08/23/17 at 09:00 Gadodiamide (Omniscan Pf Inj) 15 ml STK-MED ONCE IVCONTRAST Last administered on 08/23/17 07:35; Start 08/23/17 at 07:35; Stop 08/23/17 at 07:36; Status DC Potassium Chloride (KCl) 40 meq ONCE ONCE PO Last administered on 08/23/17 16 :04; Start 08/23/17 at 15:00; Stop 08/23/17 at 15:01; Status DC Potassium Chloride (KCl) 40 meq ONCE ONCE PO Last administered on 08/23/17at 17 :47; Start 08/23/17 at 17:00; Stop 08/23/17 at 17:01; Status DC Morphine Sulfate (Morphine Inj) 2 mg Q3H PRN IV PUSH Pain 6-10 Last administered on 08/24/17at 09:55; Start 08/24/17 at 10:00 (Gallito Terrell MD) Medical Decision Making MDM Remarks 62 y/o female with visual changes MRI Brain with scattered abnormal signals, ?etiology Last Impressions Head/Brain Mag Res Venography 08/23/17 0000 Signed Impressions: CONCLUSION: 1. No findings to indicate venous sinus thrombosis identified. Brain MRI 08/21/17 0000 Signed Impressions: CONCLUSION: 1. There are scattered areas of abnormal T2 signal within the brain parenchyma specifically involving the anterior aspect of the right temporal lobe, the rig ht hippocampal gyri, the pulvinar of the thalamus and the posterior parieto-occ ipital cortex on the left. Differential considerations would include an encepha litis alternatively, the overall appearance of the sagittal sinus and proximal transverse sinuses is abnormal in the exam would raise concern for a venous sin us thrombosis. CT venogram or MR venogram is warranted for further assessment. If lumbar puncture has not been performed this should be a consideration. The o verall appearance of the signal abnormalities is nonspecific. Lumbar Puncture Fluoroscopy 08/18/17 0000 Signed Impressions: CONCLUSION: 1. Uncomplicated fluoroscopically guided lumbar puncture. Thoracic Spine MRI 6/17/18 0000 Signed Impressions: CONCLUSION: 1. Spinal cord has a normal appearance. There are no findings to indicate mult iple sclerosis involvement of the thoracic spinal cord. 2. Mild degenerative disc disease at T11-T12. No canal stenosis or neural fora chelsie narrowing is present. Head Magnetic Resonance Angiography 08/16/17 Signed Impressions: CONCLUSION: No intracranial arterial vascular abnormality is identified. Cervical Spine MRI 08/16/17 Signed Impressions: CONCLUSION: 1. No cord signal abnormalities to suggest multiple sclerosis. 2. Degenerative disc disease most severe at C5-6-7 where there is mild impress ion on the anterior surface of the cord. Slight reversal of normal cervical nohemy dosis. Head CT 08/15/17 Signed Impressions: CONCLUSION: 1. No acute intracranial abnormalities. Chest X-Ray 08/15/17 Signed Impressions: CONCLUSION: Minimal linear scarring or atelectasis left base. Otherwise no acute findings. (Maribell Barragan) MDM Remarks MRI Brain with scattered abnormal signa, particularly in her right tempotal lobe , ?etiology I reviewed again her studies. Brain MRI 08/21/17 Signed Impressions: CONCLUSION: 1. There are scattered areas of abnormal T2 signal within the brain parenchyma specifically involving the anterior aspect of the right temporal lobe, the rig ht hippocampal gyri, the pulvinar of the thalamus and the posterior parieto-occ ipital cortex on the left. Differential considerations would include an encepha litis alternatively, the overall appearance of the sagittal sinus and proximal transverse sinuses is abnormal in the exam would raise concern for a venous sin us thrombosis. CT venogram or MR venogram is warranted for further assessment. If lumbar puncture has not been performed this should be a consideration. The o verall appearance of the signal abnormalities is nonspecific. Lumbar Puncture Fluoroscopy 08/18/17 Signed Impressions: CONCLUSION: 1. Uncomplicated fluoroscopically guided lumbar puncture. Thoracic Spine MRI 08/17/17 Signed Impressions: CONCLUSION: 1. Spinal cord has a normal appearance. There are no findings to indicate mult iple sclerosis involvement of the thoracic spinal cord. 2. Mild degenerative disc disease at T11-T12. No canal stenosis or neural fora chelsie narrowing is present. Head Magnetic Resonance Angiography 08/16/17 Signed Impressions: CONCLUSION: No intracranial arterial vascular abnormality is identified. Cervical Spine MRI 08/16/17 Signed Impressions: CONCLUSION: 1. No cord signal abnormalities to suggest multiple sclerosis. 2. Degenerative disc disease most severe at C5-6-7 where there is mild impress ion on the anterior surface of the cord. Slight reversal of normal cervical nohemy dosis. Head CT 08/15/17 Signed Impressions: CONCLUSION: 1. No acute intracranial abnormalities. Chest X-Ray 08/15/17 Signed Impressions: CONCLUSION: Minimal linear scarring or atelectasis left base. Otherwise no acute findings. Continue neuro checks. She is scheduled for an MRV (Gallito Terrell MD) Plan Plan Remarks Neurology following requests brain biopsy, for biopsy current care Dr. Terrell dw patient and sister in room, questions answered (Maribell Barragan) Attending Statement Continue neuro checks. I reviewed her MRV of the brain Head/Brain Mag Res Venography 08/23/17 0000 Signed Impressions: CONCLUSION: 1. No findings to indicate venous sinus thrombosis identified. I reviewed her CSF studies. All were negative for diagnosis She will need to consider the brain biopsy. We have discussed the details including the [id number] details of the surgical procedure, its indications, alternatives, risks, and potential complications. Risks and potential complications include, but are not limited to, infection, blood loss, CSF leak, partial or complete loss of sight in one or both eyes, paresis, paralysis, permanent pain or difficulty swallowing, loss of bowel or bladder function, complications from anesthesia, blood clot, stroke, myocardial infarction, or even . (2) HTN (hypertension) ICD Codes: I10 - Essential (primary) hypertension Status: Chronic Plan: Goal less than 120/80 Continue antihypertensives (3) Tobacco use ICD Codes: Z72.0 - Tobacco use Status: Chronic Plan: Cessation discussed with the patient Continue aggressive pulmonary toilette, nasotracheal suction, and breathing treatments with nebulizers. Daily PT and OT Renal. Continue to monitor closely urine output, BUN and creatinine Endocrine. Continue to Monitor serial Acu checks and SSI as needed in detail ID continue to monitor for signs of infection Continue Protonix for stress ulcer prophylaxis Continue Sergey hose and SCD's for DVT prophylaxis Further recommendations will be provided depending on the patient's clinical evaluation and follow up studies. Discussed with neurologist, Dr rubin The exam, history, and the medical decision-making described in the above note were completed with the assistance of the mid-level provider. I reviewed and agree with the findings presented. I attest that I had a [id number] encounter with the patient on the same day, and personally performed and documented my assessment and findings in the medical record. (Gallito Terrell MD) Maribell Barragan Aug 24, 2017 12:11 Gallito Terrell MD Aug 24, 2017 15:42
[2017-08-24 12:26] LABS: HEMOGLOBIN A1C 5.3 % (4.3-6.0)
--- NOTE | 2017-08-24 15:46 | HHI.NSPN ---
Note Status Status: Progress Note Interval History Diagnosis THIS NOTE REPRESENTS MY ENCOUNTER ON 08/23 DURING Brain lesion Interval History THIS NOTE REPRESENTS MY ENCOUNTER ON 08/23 DURING This is a 70-year-old female with a PMH of HTN, Cholelithiasis and Tobacco Abuse who was referred to the ER by her Internal Medicine Physician for vision loss and concern for stroke. She has been seeing floaters and reduced vision in her peripheral pacheco. States past few days she is seeing some blurriness in vision flashes of light white and red in the periphery. No significant history of migraine headache See the moisture tester who did formal visual field testing and found left homonymous hemianopsia and suspected patient having a stroke. Apparently normal funduscopic exam. She denies any headache trauma vertigo focal weakness or gait imbalance. Denies previous h/o similar symptoms. Takes ASA 81mg qd in addition to Lipitor. On arrival, BP 161/100. CT Head negative. Denies any history of hypercoagulable state, lupus or DVT or A. fib. No family history of stroke. States she smokes only when she is driving. 08/23. no changes in her vision. CSF results were negative. Will need to undergo a biopsy of the btrain lesion Labs, Micro, & Vital Signs Results THIS NOTE REPRESENTS MY ENCOUNTER ON 08/23 Date Time Temp Pulse Resp B/P (MAP) Pulse Ox O2 Delivery O2 Flow Rate FiO2 08/24/17 10:09 20 08/24/17 07:45 19 08/24/17 04:00 97.9 76 18 111/66 (81) 96 08/24/17 00:00 98.5 83 20 134/86 (102) 94 08/23/17 20:00 97.6 80 20 125/79 (94) 95 Constitutional THIS NOTE REPRESENTS MY ENCOUNTER ON 08/23 Vital Signs Date Time Temp Pulse Resp B/P (MAP) Pulse Ox O2 Delivery O2 Flow Rate FiO2 08/24/17 10:09 20 08/24/17 07:45 19 08/24/17 04:00 97.9 76 18 111/66 (81) 96 08/24/17 00:00 98.5 83 20 134/86 (102) 94 08/23/17 20:00 97.6 80 20 125/79 (94) 95 Physical Exam THIS NOTE REPRESENTS MY ENCOUNTER ON 08/23 DURING ROUNDS Ms Amor is alert, awake and oriented to time, place and person. Speech is fluent. Cranial nerve examination: pupils to be equal, round and reactive to light. Extra-ocular movements are intact. Visual field deficit, poorly characterized Facial motor and sensory function are normal and symmetrical. Gross hearing appears intact. Sternocleidomastoid and trapezius muscles are symmetrical. Other cranial nerves are intact. Neck is soft and supple with a good range of motion without pain. Muscle strength is normal in all muscle groups of both upper and lower extremities. Sensory examination is intact to light touch and pin prick in both the upper and lower extremities. Deep tendon reflexes are symmetrical in both upper and lower extremities. There is a bilateral plantar flexion response. Cerebellar examination is unremarkable, without deficits. Respiratory: Non-labored respirations, BS equal, Symmetrical expansion, No chest wall tenderness Cardiology: Normal rate, No edema Musculoskeletal: Normal ROM Psychiatric: Cooperative, Appropriate mood & affect Skin warm and dry Medications Current Medications THIS NOTE REPRESENTS MY ENCOUNTER ON 08/23 DURING ROUNDS Current Medications Sodium Chloride (NS Flush) 2 ml BID IV FLUSH Last administered on 08/24/17at 09: 49; Start 08/16/17 at 09:00 Sodium Chloride (NS Flush) 2 ml UNSCH PRN IV FLUSH FLUSH AFTER USING IV ACCESS Last administered on 08/22/17at 05:09; Start 08/15/17 at 23:45 Sodium Chloride 1,000 ml @ 70 mls/hr [id number] IV Last administered on at 08:18; Start 08/15/17 at 23:44; Stop 08/18/17 at 15:07; Status DC Enalaprilat (Vasotec Inj) 1.25 mg Q4H PRN IV PUSH For SBP > 220 or DBP > 120; Start 08/15/17 at 23:45 Aspirin (Aspirin Chew) 81 mg DAILY PO ; Start 08/16/17 at 09:00; Stop 08/16/17 at 09:00; Status DC Insulin Aspart (NovoLOG SUPPLEMENTAL SCALE) 1 ACHS SQ Last administered on 08/21at 17:00; Start 08/16/17 at 08:00; Stop 08/23/17 at 14:57; Status DC Dextrose (D50w (Vial) Inj) 50 ml UNSCH PRN IV PUSH HYPOGLYCEMIA-SEE COMMENTS; Start 08/15/17 at 23:45; Stop 08/23/17 at 14:57; Status DC Glucagon (Glucagon Inj) 1 mg UNSCH PRN OTHER HYPOGLYCEMIA-SEE COMMENTS; Start 08/15/17 at 23:45; Stop 08/23/17 at 14:57; Status DC Alprazolam (Xanax) 0.25 mg Q4H PRN PO ANXIETY Last administered on 08/21/17at 15 :03; Start 08/15/17 at 23:45; Stop 08/21/17 at 18:50; Status DC Atorvastatin Calcium (Lipitor) 20 mg HS PO ; Start 08/16/17 at 21:00; Stop 08/16 at 21:00; Status DC Acetaminophen (Tylenol) 650 mg Q6H PRN PO FEVER/PAIN SCALE 1 TO 2 Last administered on 08/22/17at 20:46; Start 08/16/17 at 00:15 Acetaminophen/ Hydrocodone Bitart ([place] 5-325 Mg) 1 tab Q4H PRN PO PAIN SCALE 3 TO 5 Last administered on 08/24/17at 06:45; Start 08/16/17 at 00:15 Morphine Sulfate (Morphine Inj) 2 mg Q3H PRN IV PUSH Pain 6-10; Start 08/16/17 at 00:15; Stop 08/24/17 at 09:48; Status DC Senna/Docusate Sodium (Marychuy-Colace) 1 tab BID PO Last administered on at 09:50; Start 08/16/17 at 09:00 Magnesium Hydroxide (Milk Of Magnesia Liq) 30 ml Q12H PRN PO Mild constipation ; Start 08/16/17 at 00:15 Sennosides (Senokot) 17.2 mg Q12H PRN PO Moderate constipation Last administered on 08/22/17at 08:30; Start 08/16/17 at 00:15 Bisacodyl (Dulcolax Supp) 10 mg DAILY PRN RECTAL SEVERE CONSITIPATION; Start at 00:15 Lactulose (Lactulose Liq) 30 ml DAILY PRN PO SEVERE CONSITIPATION; Start at 00:15 Atorvastatin Calcium (Lipitor) 20 mg HS PO Last administered on 08/23/17at 20:25 ; Start 08/16/17 at 00:30 Aspirin (Ecotrin Ec) 325 mg DAILY PO Last administered on 08/16/17at 08:29; Start 08/16/17 at 09:00; Stop 08/16/17 at 15:32; Status DC Potassium Chloride (KCl) 40 meq ONCE ONCE PO Last administered on 08/16/17at 02 :55; Start 08/16/17 at 00:30; Stop 08/16/17 at 00:38; Status DC Ceftriaxone Sodium 2000 mg/ Sodium Chloride 100 ml @ 200 mls/hr Q12H IV Last administered on 08/22/17at 05:09; Start 08/16/17 at 18:00; Stop 08/22/17 at 12:00 ; Status DC Acyclovir Sodium 700 mg/Sodium Chloride 100 ml @ 100 mls/hr Q8H IV Last administered on 08/21/17at 09:10; Start 08/16/17 at 17:00; Stop 08/21/17 at 10:37 ; Status DC Methylprednisolone Sodium Succinate (SoluMEDROL INJ) 125 mg ONCE ONCE IV PUSH Last administered on 08/16/17at 16:58; Start 08/16/17 at 15:45; Stop 08/16/17 at 15:51; Status DC Methylprednisolone Sodium Succinate (SoluMEDROL INJ) 40 mg Q6HR IV PUSH Last administered on 08/17/17at 06:19; Start 08/17/17 at 00:00; Stop 08/17/17 at 10:24 ; Status DC Lactobacillus Acidophilus (Lactinex) 1 tab TID PO Last administered on at 13:17; Start 08/16/17 at 18:00 Gadodiamide (Omniscan Pf Inj) 15 ml STK-MED ONCE IVCONTRAST Last administered on 08/16/17at 16:39; Start 08/16/17 at 16:39; Stop 08/16/17 at 16:41; Status DC Methylprednisolone Sodium Succinate (SoluMEDROL INJ) 500 mg Q12HR IV PUSH ; Start 08/17/17 at 12:00; Status UNV Gadodiamide (Omniscan Pf Inj) 15 ml STK-MED ONCE IVCONTRAST Last administered on 08/17/17at 13:11; Start 08/17/17 at 13:11; Stop 08/17/17 at 13:12; Status DC Methylprednisolone Sodium Succinate 500 mg/Sodium Chloride 100 ml @ 200 mls/hr Q12H IV Last administered on 08/21/17at 15:03; Start 08/17/17 at 16:00; Stop at 21:00; Status DC Pantoprazole Sodium (Protonix) 20 mg DAILY PO Last administered on 08/24/17at 09 :50; Start 08/17/17 at 17:00 Potassium Chloride (KCl) 40 meq ONCE ONCE PO Last administered on 08/19/17at 12 :26; Start 08/19/17 at 12:30; Stop 08/19/17 at 12:31; Status DC Potassium Chloride (KCl) 30 meq ONCE ONCE PO Last administered on 08/20/17at 03 :39; Start 08/20/17 at 03:30; Stop 08/20/17 at 03:31; Status DC Potassium Chloride (KCl) 40 meq ONCE ONCE PO Last administered on 08/20/17at 08 :48; Start 08/20/17 at 08:00; Stop 08/20/17 at 08:04; Status DC Gadodiamide (Omniscan Pf Inj) 15 ml STK-MED ONCE IVCONTRAST Last administered on 08/21/17at 17:33; Start 08/21/17 at 17:30; Stop 08/21/17 at 17:32; Status DC Alprazolam (Xanax) 0.5 mg Q4H PRN PO ANXIETY Last administered on 08/24/17at 09: 46; Start 08/21/17 at 19:00 Carvedilol (Coreg) 12.5 mg BID PO Last administered on 08/24/17at 09:49; Start 08/22/17 at 09:00 Non-Formulary Medication 1 tab DAILY PO ; Start 08/22/17 at 09:00; Stop at 09:00; Status DC Losartan Potassium (Cozaar) 100 mg DAILY PO Last administered on 08/24/17at 09: 48; Start 08/22/17 at 09:00 Hydrochlorothiazide (Hydrodiuril) 12.5 mg DAILY PO Last administered on 09:48; Start 08/22/17 at 09:00 Estrogens Conjugated (Premarin) 1.25 mg DAILY PO Last administered on 09:47; Start 08/23/17 at 09:00 Gadodiamide (Omniscan Pf Inj) 15 ml STK-MED ONCE IVCONTRAST Last administered on 08/23/17 07:35; Start 08/23/17 at 07:35; Stop 08/23/17 at 07:36; Status DC Potassium Chloride (KCl) 40 meq ONCE ONCE PO Last administered on 08/23/17 16 :04; Start 08/23/17 at 15:00; Stop 08/23/17 at 15:01; Status DC Potassium Chloride (KCl) 40 meq ONCE ONCE PO Last administered on 08/23/17 17 :47; Start 08/23/17 at 17:00; Stop 08/23/17 at 17:01; Status DC Morphine Sulfate (Morphine Inj) 2 mg Q3H PRN IV PUSH Pain 6-10 Last administered on 08/24/17at 09:55; Start 08/24/17 at 10:00 Attending Statement THIS NOTE REPRESENTS MY ENCOUNTER ON 08/23 DURING ROUNDS MRI Brain with scattered abnormal signa, particularly in her right tempotal lobe , ?etiology I reviewed again her studies. Brain MRI 08/21/17 0000 Signed Impressions: CONCLUSION: 1. There are scattered areas of abnormal T2 signal within the brain parenchyma specifically involving the anterior aspect of the right temporal lobe, the rig ht hippocampal gyri, the pulvinar of the thalamus and the posterior parieto-occ ipital cortex on the left. Differential considerations would include an encepha litis alternatively, the overall appearance of the sagittal sinus and proximal transverse sinuses is abnormal in the exam would raise concern for a venous sin us thrombosis. CT venogram or MR venogram is warranted for further assessment. If lumbar puncture has not been performed this should be a consideration. The o verall appearance of the signal abnormalities is nonspecific. Lumbar Puncture Fluoroscopy 08/18/17 0000 Signed Impressions: CONCLUSION: 1. Uncomplicated fluoroscopically guided lumbar puncture. Thoracic Spine MRI 08/17/17 0000 Signed Impressions: CONCLUSION: 1. Spinal cord has a normal appearance. There are no findings to indicate mult iple sclerosis involvement of the thoracic spinal cord. 2. Mild degenerative disc disease at T11-T12. No canal stenosis or neural fora chelsie narrowing is present. Head Magnetic Resonance Angiography 08/16/17 Signed Impressions: CONCLUSION: No intracranial arterial vascular abnormality is identified. Cervical Spine MRI 08/16/17 Signed Impressions: CONCLUSION: 1. No cord signal abnormalities to suggest multiple sclerosis. 2. Degenerative disc disease most severe at C5-6-7 where there is mild impress ion on the anterior surface of the cord. Slight reversal of normal cervical nohemy dosis. Head CT 08/15/17 Signed Impressions: CONCLUSION: 1. No acute intracranial abnormalities. Chest X-Ray 08/15/17 Signed Impressions: CONCLUSION: Minimal linear scarring or atelectasis left base. Otherwise no acute findings. Continue neuro checks. She is scheduled for an MRVm, to be done later today I reviewed her CSF studies. All were negative for diagnosis She will likely need to consider the brain biopsy (2) HTN (hypertension) ICD Codes: I10 - Essential (primary) hypertension Status: Chronic Plan: Goal less than 120/80 Continue antihypertensives (3) Tobacco use ICD Codes: Z72.0 - Tobacco use Status: Chronic Plan: Cessation discussed with the patient Continue aggressive pulmonary toilette, nasotracheal suction, and breathing treatments with nebulizers. Daily PT and OT Renal. Continue to monitor closely urine output, BUN and creatinine Endocrine. Continue to Monitor serial Acu checks and SSI as needed in detail ID continue to monitor for signs of infection Continue Protonix for stress ulcer prophylaxis Continue Sergey hose and SCD's for DVT prophylaxis Further recommendations will be provided depending on the patient's clinical evaluation and follow up studies. Discussed with neurologist, Gallito Medley MD Aug 24, 2017 15:46
[2017-08-24 16:00] VITALS: BP 122/78; PULSE 88; RESP 16; TEMP 98; O2SAT 95
[2017-08-24 19:55] VITALS: BP 132/73; PULSE 82; RESP 16; TEMP 97.9; O2SAT 95
[2017-08-24] MEDS: ATORVASTATIN 20 MG TAB PO SCH (20:56)
[2017-08-25 00:20] VITALS: BP 124/75; PULSE 75; RESP 16; TEMP 97.7; O2SAT 95
[2017-08-25] MEDS: ACETAMINOPHEN/HYDROcodone 325 MG/5 MG TAB PO PRN ×4 (06:05→22:42)
[2017-08-25 08:00] VITALS: BP 135/73; PULSE 88; RESP 18; TEMP 98.7; O2SAT 95
[2017-08-25] MEDS: LOSARTAN 50 MG TAB PO SCH (10:23)
[2017-08-25] MEDS: DOCUSATE SODIUM 50 MG/SENNA 8.6 MG TAB PO SCH ×2 (10:23→21:00)
[2017-08-25] MEDS: LACTOBACILLUS ACIDOPHILUS TAB PO SCH ×3 (10:23→19:40)
[2017-08-25] MEDS: ESTROGENS CONJUGATED 1.25 MG TAB PO SCH (10:24)
[2017-08-25] MEDS: HYDROCHLOROTHIAZIDE 25 MG TAB PO SCH (10:24)
[2017-08-25] MEDS: PANTOPRAZOLE SOD 20 MG DELAYED RELEASE TAB PO SCH (10:24)
[2017-08-25] MEDS: CARVEDILOL 12.5 MG TAB PO SCH ×2 (10:35→22:41)
--- NOTE | 2017-08-25 10:36 | HHI.NSPN ---
(Maribell Barragan) Note Status Status: Progress Note (Maribell Barragan) Interval History Interval History 70-year-old female with a PMH of HTN, Cholelithiasis and Tobacco Abuse who was referred to the ER by her Clam Sorter for vision loss and concern for stroke. She has been seeing floaters and reduced vision in her peripheral pachceo. States past few days she is seeing some blurriness in vision flashes of light white and red in the periphery. No significant history of migraine headache See the java development team lead who did formal visual field testing and found left homonymous hemianopsia and suspected patient having a stroke. Apparently normal funduscopic exam. She denies any headache trauma vertigo focal weakness or gait imbalance. Denies previous h/o similar symptoms. Takes ASA 81mg qd in addition to Lipitor. On arrival, BP 161/100. CT Head negative. Denies any history of hypercoagulable state, lupus or DVT or A. fib. No family history of stroke. States she smokes only when she is driving. 08/24: plan for brain biopsy Friday. 08/25: no new neurological complaints, for biopsy tomorrow. c/o of mild cough. (Maribell Barragan) Labs, Micro, & Vital Signs Results Date Time Temp Pulse Resp B/P (MAP) Pulse Ox O2 Delivery O2 Flow Rate FiO2 08/25/17 08:00 98.7 88 18 135/73 (93) 95 08/25/17 00:20 97.7 75 16 124/75 (91) 95 08/24/17 19:55 97.9 82 16 132/73 (92) 95 08/24/17 16:23 18 08/24/17 16:00 98.0 88 16 122/78 (93) 95 Constitutional Vital Signs Date Time Temp Pulse Resp B/P (MAP) Pulse Ox O2 Delivery O2 Flow Rate FiO2 08/25/17 08:00 98.7 88 18 135/73 (93) 95 08/25/17 00:20 97.7 75 16 124/75 (91) 95 08/24/17 19:55 97.9 82 16 132/73 (92) 95 08/24/17 16:23 18 08/24/17 16:00 98.0 88 16 122/78 (93) 95 (Maribell Barragan) Review of Systems Constitutional: DENIES: Fever, Chills Respiratory: COMPLAINS OF: Cough, DENIES: Wheezing, Hemoptysis, Shortness of breath Cardiovascular: DENIES: Chest pain Neurologic: DENIES: Localized weakness, Seizures, Speech Problems (Maribell Barragan) Physical Exam Ms. Amor is in bed comfortable in no acute distress Alert, awake. Speech is fluent, conversing well. Higher cognitive functions are normal. Facial motor are normal and symmetrical. Gross hearing intact. Motor: moving all four extremities well Heart: regular rate rhythm Lungs: clear, no wheezes (Maribell Barragan) Ms. Amor is in bed comfortable in no acute distress Alert, awake. Speech is fluent, conversing well. Higher cognitive functions are normal. Facial motor are normal and symmetrical. Gross hearing intact. Motor: moving all four extremities well Heart: regular rate rhythm Lungs: clear, no wheezes Skin warm and dry (Gallito Terrell MD) Medications Current Medications Current Medications Medications (Trade) Dose Ordered Sig/Madeleine Route PRN Reason Start Time Stop Time Status Last Admin Dose Admin Sodium Chloride (NS Flush) 2 ml BID IV FLUSH 08/16/17 09:00 08/24/17 20:58 Sodium Chloride (NS Flush) 2 ml UNSCH PRN IV FLUSH FLUSH AFTER USING IV ACCESS 08/15/17 23:45 08/22/17 05:09 Enalaprilat (Vasotec Inj) 1.25 mg Q4H PRN IV PUSH For SBP > 220 or DBP > 120 08/15/17 23:45 Acetaminophen (Tylenol) 650 mg Q6H PRN PO FEVER/PAIN SCALE 1 TO 2 08/16/17 00:15 08/22/17 20:46 Acetaminophen/ Hydrocodone Bitart ([place] 5-325 Mg) 1 tab Q4H PRN PO PAIN SCALE 3 TO 5 08/16/17 00:15 08/25/17 06:05 Senna/Docusate Sodium (Marychuy-Colace) 1 tab BID PO 08/16/17 09:00 08/24/17 20:56 Magnesium Hydroxide (Milk Of Magnesia Liq) 30 ml Q12H PRN PO Mild constipation 08/16/17 00:15 Sennosides (Senokot) 17.2 mg Q12H PRN PO Moderate constipation 08/16/17 00:15 08/22/17 08:30 Bisacodyl (Dulcolax Supp) 10 mg DAILY PRN RECTAL SEVERE CONSITIPATION 08/16/17 00:15 Lactulose (Lactulose Liq) 30 ml DAILY PRN PO SEVERE CONSITIPATION 08/16/17 00:15 Atorvastatin Calcium (Lipitor) 20 mg HS PO 08/16/17 00:30 08/24/17 20:56 Lactobacillus Acidophilus (Lactinex) 1 tab TID PO 08/16/17 18:00 08/24/17 17:33 Pantoprazole Sodium (Protonix) 20 mg DAILY PO 08/17/17 17:00 08/24/17 09:50 Alprazolam (Xanax) 0.5 mg Q4H PRN PO ANXIETY 08/21/17 19:00 08/24/17 20:56 Carvedilol (Coreg) 12.5 mg BID PO 08/22/17 09:00 08/24/17 20:56 Losartan Potassium (Cozaar) 100 mg DAILY PO 08/22/17 09:00 08/24/17 09:48 Hydrochlorothiazide (Hydrodiuril) 12.5 mg DAILY PO 08/22/17 09:00 08/24/17 09:48 Estrogens Conjugated (Premarin) 1.25 mg DAILY PO 08/23/17 09:00 08/24/17 09:47 Morphine Sulfate (Morphine Inj) 2 mg Q3H PRN IV PUSH Pain 6-10 08/24/17 10:00 08/24/17 20:56 Cefazolin Sodium/ Dextrose 50 ml @ 150 mls/hr ONCE ONCE IV 08/26/17 06:00 08/26/17 06:19 UNV Chlorhexidine Gluconate (Hibiclens 4% Top Soln) 1 applic HS TOP 08/25/17 21:00 08/27/17 21:01 UNV (Maribell Barragan) Medical Decision Making MDM Remarks 62 y/o female with visual changes MRI Brain with scattered abnormal signals, ?etiology Last Impressions Head/Brain Mag Res Venography 08/23/17 Signed Impressions: CONCLUSION: 1. No findings to indicate venous sinus thrombosis identified. Brain MRI 08/21/17 Signed Impressions: CONCLUSION: 1. There are scattered areas of abnormal T2 signal within the brain parenchyma specifically involving the anterior aspect of the right temporal lobe, the rig ht hippocampal gyri, the pulvinar of the thalamus and the posterior parieto-occ ipital cortex on the left. Differential considerations would include an encepha litis alternatively, the overall appearance of the sagittal sinus and proximal transverse sinuses is abnormal in the exam would raise concern for a venous sin us thrombosis. CT venogram or MR venogram is warranted for further assessment. If lumbar puncture has not been performed this should be a consideration. The o verall appearance of the signal abnormalities is nonspecific. Lumbar Puncture Fluoroscopy 08/18/17 Signed Impressions: CONCLUSION: 1. Uncomplicated fluoroscopically guided lumbar puncture. Thoracic Spine MRI 08/17/17 Signed Impressions: CONCLUSION: 1. Spinal cord has a normal appearance. There are no findings to indicate mult iple sclerosis involvement of the thoracic spinal cord. 2. Mild degenerative disc disease at T11-T12. No canal stenosis or neural fora chelsie narrowing is present. Head Magnetic Resonance Angiography 08/16/17 Signed Impressions: CONCLUSION: No intracranial arterial vascular abnormality is identified. Cervical Spine MRI 08/16/17 Signed Impressions: CONCLUSION: 1. No cord signal abnormalities to suggest multiple sclerosis. 2. Degenerative disc disease most severe at C5-6-7 where there is mild impress ion on the anterior surface of the cord. Slight reversal of normal cervical nohemy dosis. Head CT 08/15/17 Signed Impressions: CONCLUSION: 1. No acute intracranial abnormalities. Chest X-Ray 08/15/17 Signed Impressions: CONCLUSION: Minimal linear scarring or atelectasis left base. Otherwise no acute findings. (Maribell Barragan) Plan Plan Remarks Neurology following, requests brain biopsy, for biopsy tomorrow, NPO tonight at midnight, consents in chart CXR for cough (Maribell Barragan) Attending Statement Her workup has been negative so far Etiology ? cerebritis versus neoplasm Will need a biopsy of the right temporal lobe Follow up MRI prior to surgery Continue aggressive pulmonary toilette, nasotracheal suction, and breathing treatments with nebulizers. Nutrition. NPO Renal. monitor closely urine output, BUN and creatinine Endocrine. Monitor serial Acu checks and SSI as needed in detail ID monitor for signs of infection Protonix for stress ulcer prophylaxis Sergey hose and SCD's for DVT prophylaxis The exam, history, and the medical decision-making described in the above note were completed with the assistance of the mid-level provider. I reviewed and agree with the findings presented. I attest that I had a [id number] encounter with the patient on the same day, and personally performed and documented my assessment and findings in the medical record. (Gallito Terrell MD) Maribell Barragan Aug 25, 2017 10:36 Gallito Terrell MD Aug 26, 2017 18:13
[2017-08-25] MEDS: SODIUM CHLORIDE 0.9% FLUSH 10 ML FLUSH IV FLUSH SCH ×2 (10:38→22:41)
--- NOTE | 2017-08-25 11:06 | HHI.PR ---
Subjective Remarks 08-22 Worried about her finances and being here in the hospital. She reports no changes in her vision. Symptoms are not improved but not worse. No headaches and no focalized weakness or numbness 08-23 IS SCHEDULED FOR BRAIN BIOPSY IN TEMPORAL LOBE ON FRIDAY WITH DR TEE ZHANG RN AND PT AND CM DC ACCUCHECKS SINCE OFF STEROIDS Still having visual field cut issues 08-24 SCHEDULED FOR SURGERY ON FRIDAY STILL HAVING VISUAL FIELD CUT ISSUES HAS SOME PAIN- NOT TAKING PAIN MEDS BY HER CHOICE HAS PAIN MEDS AVAILABLE LEATHA RN AND PT AND FAMILY AND CM 08-25 FOR TEMPORAL LOBE BIOPSY WITH DR TERRELL ON 08-26 NO NEW COMPLAINTS ANXIOUS ABOUT SURGERY LEATHA RN AND PT AND CM AND NEUROSURGERY Objective Vitals Vital Signs Date Time Temp Pulse Resp B/P (MAP) Pulse Ox O2 Delivery O2 Flow Rate FiO2 08/25/17 08:00 98.7 88 18 135/73 (93) 95 08/25/17 00:20 97.7 75 16 124/75 (91) 95 08/24/17 19:55 97.9 82 16 132/73 (92) 95 08/24/17 16:23 18 08/24/17 16:00 98.0 88 16 122/78 (93) 95 I/O 08/24/17 08/24/17 08/24/17 08/25/17 08/25/17 08/25/17 07:00 15:00 23:00 07:00 15:00 23:00 Intake Total 1680 ml 480 ml Balance 1680 ml 480 ml Intake Oral 1680 ml 480 ml # Voids 8 2 # Bowel Movements 3 0 Result Diagram: 08/24/17 0511 08/24/17 0511 Other Results Laboratory Tests Test 08/24/17 05:11 White Blood Count 9.8 TH/MM3 Red Blood Count 4.61 MIL/MM3 Hemoglobin 13.8 GM/DL Hematocrit 40.9 % Mean Corpuscular Volume 88.8 FL Mean Corpuscular Hemoglobin 30.0 PG Mean Corpuscular Hemoglobin Concent 33.8 % Red Cell Distribution Width 13.6 % Platelet Count 250 TH/MM3 Mean Platelet Volume 7.3 FL Neutrophils (%) (Auto) 58.7 % Lymphocytes (%) (Auto) 31.7 % Monocytes (%) (Auto) 7.6 % Eosinophils (%) (Auto) 1.9 % Basophils (%) (Auto) 0.1 % Neutrophils # (Auto) 5.8 TH/MM3 Lymphocytes # (Auto) 3.1 TH/MM3 Monocytes # (Auto) 0.7 TH/MM3 Eosinophils # (Auto) 0.2 TH/MM3 Basophils # (Auto) 0.0 TH/MM3 CBC Comment AUTO DIFF Differential Comment AUTO DIFF CONFIRMED Blood Urea Nitrogen 28 MG/DL Creatinine 0.60 MG/DL Random Glucose 80 MG/DL Total Protein 5.9 GM/DL Albumin 3.0 GM/DL Calcium Level 8.3 MG/DL Phosphorus Level 4.3 MG/DL Magnesium Level 2.4 MG/DL Alkaline Phosphatase 42 U/L Aspartate Amino Transf (AST/SGOT) 29 U/L Alanine Aminotransferase (ALT/SGPT) 113 U/L Total Bilirubin 0.7 MG/DL Sodium Level 146 MEQ/L Potassium Level 4.0 MEQ/L Chloride Level 111 MEQ/L Carbon Dioxide Level 24.1 MEQ/L Anion Gap 11 MEQ/L Estimat Glomerular Filtration Rate 102 ML/MIN Hemoglobin A1c 5.3 % Free Thyroxine 1.18 NG/DL Thyroid Stimulating Hormone 3rd Gen 0.861 uIU/ML Imaging Last Impressions Head/Brain Mag Res Venography 08/23/17 0000 Signed Impressions: CONCLUSION: 1. No findings to indicate venous sinus thrombosis identified. Brain MRI 08/21/17 0000 Signed Impressions: CONCLUSION: 1. There are scattered areas of abnormal T2 signal within the brain parenchyma specifically involving the anterior aspect of the right temporal lobe, the rig ht hippocampal gyri, the pulvinar of the thalamus and the posterior parieto-occ ipital cortex on the left. Differential considerations would include an encepha litis alternatively, the overall appearance of the sagittal sinus and proximal transverse sinuses is abnormal in the exam would raise concern for a venous sin us thrombosis. CT venogram or MR venogram is warranted for further assessment. If lumbar puncture has not been performed this should be a consideration. The o verall appearance of the signal abnormalities is nonspecific. Lumbar Puncture Fluoroscopy 08/18/17 0000 Signed Impressions: CONCLUSION: 1. Uncomplicated fluoroscopically guided lumbar puncture. Thoracic Spine MRI 08/17/17 Signed Impressions: CONCLUSION: 1. Spinal cord has a normal appearance. There are no findings to indicate mult iple sclerosis involvement of the thoracic spinal cord. 2. Mild degenerative disc disease at T11-T12. No canal stenosis or neural fora chelsie narrowing is present. Head Magnetic Resonance Angiography 08/16/17 Signed Impressions: CONCLUSION: No intracranial arterial vascular abnormality is identified. Cervical Spine MRI 08/16/17 Signed Impressions: CONCLUSION: 1. No cord signal abnormalities to suggest multiple sclerosis. 2. Degenerative disc disease most severe at C5-6-7 where there is mild impress ion on the anterior surface of the cord. Slight reversal of normal cervical nohemy dosis. Head CT 08/15/17 Signed Impressions: CONCLUSION: 1. No acute intracranial abnormalities. Chest X-Ray 08/15/17 Signed Impressions: CONCLUSION: Minimal linear scarring or atelectasis left base. Otherwise no acute findings. Objective Remarks GENERAL: Still having visual field cut issues-awake alert and oriented 3 talkative and cooperative SKIN: Warm and dry. HEAD: Atraumatic. Normocephalic. EYES: Pupils equal and round. No scleral icterus. No injection or drainage. Having visual field cut issues ENT: No nasal bleeding or discharge. Mucous membranes pink and moist. NECK: Trachea midline. No JVD. CARDIOVASCULAR: Regular rate and rhythm. S1-S2 no S3 or S4 RESPIRATORY: No accessory muscle use. Clear to auscultation. Breath sounds equal bilaterally. GASTROINTESTINAL: Abdomen soft, non-tender, nondistended. Hepatic and splenic margins not palpable. MUSCULOSKELETAL: Extremities without clubbing, cyanosis, or edema. No obvious deformities. NEUROLOGICAL: Awake and alert. No obvious cranial nerve deficits. Motor grossly within normal limits. 4 out of 5 muscle strength in the arms and legs. Normal speech. PSYCHIATRIC: Appropriate mood and affect; insight and judgment normal. Medications and IVs Current Medications Sodium Chloride (NS Flush) 2 ml BID IV FLUSH Last administered on 08/25/17at 10: 38; Start 08/16/17 at 09:00 Sodium Chloride (NS Flush) 2 ml UNSCH PRN IV FLUSH FLUSH AFTER USING IV ACCESS Last administered on 08/22/17at 05:09; Start 08/15/17 at 23:45 Sodium Chloride 1,000 ml @ 70 mls/hr [id number] IV Last administered on at 08:18; Start 08/15/17 at 23:44; Stop 08/18/17 at 15:07; Status DC Enalaprilat (Vasotec Inj) 1.25 mg Q4H PRN IV PUSH For SBP > 220 or DBP > 120; Start 08/15/17 at 23:45 Aspirin (Aspirin Chew) 81 mg DAILY PO ; Start 08/16/17 at 09:00; Stop 08/16/17 at 09:00; Status DC Insulin Aspart (NovoLOG SUPPLEMENTAL SCALE) 1 ACHS SQ Last administered on 08/21at 17:00; Start 08/16/17 at 08:00; Stop 08/23/17 at 14:57; Status DC Dextrose (D50w (Vial) Inj) 50 ml UNSCH PRN IV PUSH HYPOGLYCEMIA-SEE COMMENTS; Start 08/15/17 at 23:45; Stop 08/23/17 at 14:57; Status DC Glucagon (Glucagon Inj) 1 mg UNSCH PRN OTHER HYPOGLYCEMIA-SEE COMMENTS; Start 08/15/17 at 23:45; Stop 08/23/17 at 14:57; Status DC Alprazolam (Xanax) 0.25 mg Q4H PRN PO ANXIETY Last administered on 08/21/17at 15 :03; Start 08/15/17 at 23:45; Stop 08/21/17 at 18:50; Status DC Atorvastatin Calcium (Lipitor) 20 mg HS PO ; Start 08/16/17 at 21:00; Stop 08/16 at 21:00; Status DC Acetaminophen (Tylenol) 650 mg Q6H PRN PO FEVER/PAIN SCALE 1 TO 2 Last administered on 08/22/17at 20:46; Start 08/16/17 at 00:15 Acetaminophen/ Hydrocodone Bitart ([place] 5-325 Mg) 1 tab Q4H PRN PO PAIN SCALE 3 TO 5 Last administered on 08/25/17at 10:35; Start 08/16/17 at 00:15 Morphine Sulfate (Morphine Inj) 2 mg Q3H PRN IV PUSH Pain 6-10; Start 08/16/17 at 00:15; Stop 08/24/17 at 09:48; Status DC Senna/Docusate Sodium ([place]-Colace) 1 tab BID PO Last administered on at 10:23; Start 08/16/17 at 09:00 Magnesium Hydroxide (Milk Of Magnesia Liq) 30 ml Q12H PRN PO Mild constipation ; Start 08/16/17 at 00:15 Sennosides (Senokot) 17.2 mg Q12H PRN PO Moderate constipation Last administered on 08/22/17at 08:30; Start 08/16/17 at 00:15 Bisacodyl (Dulcolax Supp) 10 mg DAILY PRN RECTAL SEVERE CONSITIPATION; Start at 00:15 Lactulose (Lactulose Liq) 30 ml DAILY PRN PO SEVERE CONSITIPATION; Start at 00:15 Atorvastatin Calcium (Lipitor) 20 mg HS PO Last administered on 08/24/17at 20:56 ; Start 08/16/17 at 00:30 Aspirin (Ecotrin Ec) 325 mg DAILY PO Last administered on 08/16/17at 08:29; Start 08/16/17 at 09:00; Stop 08/16/17 at 15:32; Status DC Potassium Chloride (KCl) 40 meq ONCE ONCE PO Last administered on 08/16/17at 02 :55; Start 08/16/17 at 00:30; Stop 08/16/17 at 00:38; Status DC Ceftriaxone Sodium 2000 mg/ Sodium Chloride 100 ml @ 200 mls/hr Q12H IV Last administered on 08/22/17at 05:09; Start 08/16/17 at 18:00; Stop 08/22/17 at 12:00 ; Status DC Acyclovir Sodium 700 mg/Sodium Chloride 100 ml @ 100 mls/hr Q8H IV Last administered on 08/21/17at 09:10; Start 08/16/17 at 17:00; Stop 08/21/17 at 10:37 ; Status DC Methylprednisolone Sodium Succinate (SoluMEDROL INJ) 125 mg ONCE ONCE IV PUSH Last administered on 08/16/17at 16:58; Start 08/16/17 at 15:45; Stop 08/16/17 at 15:51; Status DC Methylprednisolone Sodium Succinate (SoluMEDROL INJ) 40 mg Q6HR IV PUSH Last administered on 08/17/17at 06:19; Start 08/17/17 at 00:00; Stop 08/17/17 at 10:24 ; Status DC Lactobacillus Acidophilus (Lactinex) 1 tab TID PO Last administered on at 10:23; Start 08/16/17 at 18:00 Gadodiamide (Omniscan Pf Inj) 15 ml STK-MED ONCE IVCONTRAST Last administered on 08/16/17at 16:39; Start 08/16/17 at 16:39; Stop 08/16/17 at 16:41; Status DC Methylprednisolone Sodium Succinate (SoluMEDROL INJ) 500 mg Q12HR IV PUSH ; Start 08/17/17 at 12:00; Status UNV Gadodiamide (Omniscan Pf Inj) 15 ml STK-MED ONCE IVCONTRAST Last administered on 08/17/17at 13:11; Start 08/17/17 at 13:11; Stop 08/17/17 at 13:12; Status DC Methylprednisolone Sodium Succinate 500 mg/Sodium Chloride 100 ml @ 200 mls/hr Q12H IV Last administered on 08/21/17at 15:03; Start 08/17/17 at 16:00; Stop at 21:00; Status DC Pantoprazole Sodium (Protonix) 20 mg DAILY PO Last administered on 08/25/17at 10 :24; Start 08/17/17 at 17:00 Potassium Chloride (KCl) 40 meq ONCE ONCE PO Last administered on 08/19/17at 12 :26; Start 08/19/17 at 12:30; Stop 08/19/17 at 12:31; Status DC Potassium Chloride (KCl) 30 meq ONCE ONCE PO Last administered on 08/20/17at 03 :39; Start 08/20/17 at 03:30; Stop 08/20/17 at 03:31; Status DC Potassium Chloride (KCl) 40 meq ONCE ONCE PO Last administered on 08/20/17at 08 :48; Start 08/20/17 at 08:00; Stop 08/20/17 at 08:04; Status DC Gadodiamide (Omniscan Pf Inj) 15 ml STK-MED ONCE IVCONTRAST Last administered on 08/21/17at 17:33; Start 08/21/17 at 17:30; Stop 08/21/17 at 17:32; Status DC Alprazolam (Xanax) 0.5 mg Q4H PRN PO ANXIETY Last administered on 08/24/17at 20: 56; Start 08/21/17 at 19:00 Carvedilol (Coreg) 12.5 mg BID PO Last administered on 08/25/17at 10:35; Start 08/22/17 at 09:00 Non-Formulary Medication 1 tab DAILY PO ; Start 08/22/17 at 09:00; Stop at 09:00; Status DC Losartan Potassium (Cozaar) 100 mg DAILY PO Last administered on 08/25/17at 10: 23; Start 08/22/17 at 09:00 Hydrochlorothiazide (Hydrodiuril) 12.5 mg DAILY PO Last administered on at 10:24; Start 08/22/17 at 09:00 Estrogens Conjugated (Premarin) 1.25 mg DAILY PO Last administered on at 10:24; Start 08/23/17 at 09:00 Gadodiamide (Omniscan Pf Inj) 15 ml STK-MED ONCE IVCONTRAST Last administered on 08/23/17at 07:35; Start 08/23/17 at 07:35; Stop 08/23/17 at 07:36; Status DC Potassium Chloride (KCl) 40 meq ONCE ONCE PO Last administered on 08/23/17at 16 :04; Start 08/23/17 at 15:00; Stop 08/23/17 at 15:01; Status DC Potassium Chloride (KCl) 40 meq ONCE ONCE PO Last administered on 08/23/17at 17 :47; Start 08/23/17 at 17:00; Stop 08/23/17 at 17:01; Status DC Morphine Sulfate (Morphine Inj) 2 mg Q3H PRN IV PUSH Pain 6-10 Last administered on 08/24/17at 20:56; Start 08/24/17 at 10:00 Cefazolin Sodium/ Dextrose 50 ml @ 150 mls/hr [employer] IV ; Start 08/26/17 at 06:00; Stop 08/26/17 at 23:59 Chlorhexidine Gluconate (Hibiclens 4% Top Soln) 1 applic HS TOP ; Start at 21:00; Stop 08/27/17 at 21:01 A/P Problem List: (1) Vision loss ICD Code: H54.7 - Unspecified visual loss Status: Acute (2) Hypokalemia ICD Code: E87.6 - Hypokalemia (3) HTN (hypertension) ICD Code: I10 - Essential (primary) hypertension Status: Chronic Assessment and Plan 62-year-old female admitted secondary to peripheral vision loss Progressive peripheral vision loss, differential diagnosis of the demyelination , inflammatory versus encephalitis; stroke has been ruled out Patient states symptom has not improved nor worsened -Head CT reviewed, no acute findings -Brain MRI with multifocal areas of abnormal edema; uncertain etiology, concerning for an infectious vs inflammatory process (pituitary normal). -head MRA unremarkable neg but Thoracic spine w no finding suggestive of MS. -Neurology consulted, appreciate Dr. Lemus's recommendations. Repeat MRI of the brain completed 08/21 reviewed. Will obtain MRV of the brain today along neurosurgical evaluation to consideration for brain biopsy for further evaluation. -S/p LP, CSF studies pending, so far unremarkable -Complete day 5 of high dose IV solu-medrol. -HIV non reactive, RPR non reactive. Lyme antibodies, anti-NMO antibodies, pathology pending, MS panel currently pending -PT OT evaluation, no PT needed at discharge -Continue statin -ID also following. Continue on empiric IV rocephin and dc acyclovir due to HSV negative -Ophthalmology, Dr. Nelson consulted, appreciate input and recommendations For brain biopsy temporal lobe on Friday by Dr. Terrell Hypertension: BP stable and home medication has been restarted due to elevation overnight. -Continue with Coreg, Cozaar and HCTZ. Will continue to monitor. Hypokalemia: acute -Repleted DVT prophylaxis: SCDs For her brain biopsy temporal lobe on Friday Discharge Planning Biopsy is scheduled for Friday with Dr. Terrell of temporal lobe Problem Qualifiers (1) HTN (hypertension): Qualified Codes: I10 - Essential (primary) hypertension Rosales Lam DO Aug 25, 2017 11:06
--- NOTE | 2017-08-25 12:13 | RADRPT ---
EXAM DATE: 08/25/2017 11:26 AM EDT AGE/SEX: 62 years / Female INDICATIONS: Cough. CLINICAL DATA: This is the patient's initial encounter. Patient reports that signs and symptoms have been present for 1 day and indicates a pain score of 0/10. MEDICAL/SURGICAL HISTORY: Hypertension. . Hysterectomy. Cholecystectomy. [place] [facility] [place] . FINDINGS: There is left basilar airspace disease. No significant pleural effusion. No pneumothorax. Mild scolio sis. Heart size mildly enlarged. CONCLUSION: Mild basilar atelectasis. No effusion or pneumothorax. Electronically signed by: Joseluis Rivera MD 08/25/2017 12:12 PM EDT
[2017-08-25 12:43] VITALS: BP 101/64; PULSE 85; RESP 17; TEMP 98.1; O2SAT 93
[2017-08-25 16:40] VITALS: BP 118/72; PULSE 79; RESP 18; TEMP 97.5; O2SAT 95
[2017-08-25 20:00] VITALS: BP 127/72; PULSE 80; RESP 17; TEMP 98; O2SAT 95
[2017-08-25] MEDS: ALPRAZolam 0.5 MG TAB PO PRN (22:40)
[2017-08-25] MEDS: ATORVASTATIN 20 MG TAB PO SCH (22:41)
[2017-08-25] MEDS: CHLORHEXIDINE GLUCONATE 4% SOLN 120 ML BTL TOP SCH (22:47)
[2017-08-26] VITALS: BP 122/64; PULSE 76; RESP 17; TEMP 97.4; O2SAT 95
[2017-08-26] MEDS ORDERED: SODIUM CHLORID 0.9% 500 ML IV PRN (02:15)
[2017-08-26] MEDS ORDERED: CHLORHEXIDINE GLUCONATE 2 % 1 PACK (2 CLOTHS) TOPICAL PRN (02:15)
[2017-08-26] MEDS ORDERED: POVIDONE IODINE 5% (ANTISEPSIS KIT) 4 APPLICATIONS EACH NARE PRN (02:15)
[2017-08-26] MEDS ORDERED: LACTATED RINGER'S 1000 ML IV PRN (02:15)
[2017-08-26] MEDS ORDERED: ceFAZolin 2 GM PREMIX 50 ML IV SCH ×2 (06:00→16:45)
[2017-08-26] MEDS ORDERED: THROMBIN (TOPICAL) 5,000 UNIT VIAL ONE (07:09)
[2017-08-26] MEDS ORDERED: LIDOCAINE 1%/EPINEPHrine 1:100,000 SOLN 30 ML VIAL ONE (07:09)
[2017-08-26] MEDS ORDERED: BACITRACIN TOP OINT 15 GM TUBE ONE (07:10)
[2017-08-26] MEDS ORDERED: GELFOAM SIZE 100 ONE (07:10)
[2017-08-26] MEDS ORDERED: GENTAMICIN SULFATE 80 MG/2 ML VIAL ONE (07:10)
[2017-08-26] MEDS ORDERED: ARTIFICIAL TEARS OPTH OINT 3.5 APPLIC/3.5 GM TUBO ONE (07:12)
[2017-08-26] MEDS ORDERED: ACETAMINOPHEN 1000 MG/100 ML 100 ML IV ONE ×2 (07:12→14:03)
[2017-08-26] MEDS: ACETAMINOPHEN/HYDROcodone 325 MG/5 MG TAB PO PRN (07:58)
[2017-08-26 08:00] VITALS: BP 118/86; PULSE 76; RESP 16; TEMP 97.7; O2SAT 96
[2017-08-26] MEDS: LOSARTAN 50 MG TAB PO SCH (08:06)
[2017-08-26] MEDS: LACTOBACILLUS ACIDOPHILUS TAB PO SCH ×3 (08:06→18:00)
[2017-08-26] MEDS: ESTROGENS CONJUGATED 1.25 MG TAB PO SCH (08:06)
[2017-08-26] MEDS: SODIUM CHLORIDE 0.9% FLUSH 10 ML FLUSH IV FLUSH SCH ×2 (08:07→21:00)
[2017-08-26] MEDS: PANTOPRAZOLE SOD 20 MG DELAYED RELEASE TAB PO SCH (08:07)
[2017-08-26] MEDS: CARVEDILOL 12.5 MG TAB PO SCH ×2 (08:07→22:52)
[2017-08-26] MEDS: HYDROCHLOROTHIAZIDE 25 MG TAB PO SCH (08:07)
[2017-08-26] MEDS: DOCUSATE SODIUM 50 MG/SENNA 8.6 MG TAB PO SCH (08:10)
[2017-08-26] MEDS ORDERED: GADODIAMIDE PF 287 MG/ML 5 ML VIAL (for RAD MRI) IV PUSH ONE (09:20)
--- NOTE | 2017-08-26 09:52 | RADRPT ---
EXAM DATE: 08/26/2017 9:38 AM EDT AGE/SEX: 62 years / Female INDICATIONS: Mass. CLINICAL DATA: This is the patient's subsequent encounter. Patient reports that signs and symptoms h ave been present for 3 weeks and indicates a pain score of 0/10. MEDICAL/SURGICAL HISTORY: Hypertension. Cholecystectomy. Hysterectomy. COMPARISON: [facility] – [place], MRI BRAIN W & W/O CONTRAST, 08/21/2017. . TECHNIQUE: Multiplanar, multisequence examination of the brain was performed with 15 ml Omniscan (poppy odiamide) contrast as a single exam dose. FINDINGS: There is mild generalized atrophy but ventricular system is normal in size. Similar to the prior stud y, there are scattered periventricular and subcortical white matter signal change. There is persisten t abnormal increased T2 and FLAIR signal within the anterior right temporal lobe, left parietal mid c onvexity, right thalamus, and left roslyn. There is now increased T2 signal, enlargement, and enhanceme nt of the optic chiasm, right posterior optic nerve, and right optic tract extending along the mesial right temporal lobe and cerebral peduncle. There is also mild thickening of the meninges bilaterally with enhancement. There is no midline shift or herniation. CONCLUSION: 1. There is persistent abnormal signal within the anterior right temporal lobe, right thalamus, left parietal mid convexity, and left roslyn. 2. However, there is new and/or increased enhancement, abnormal signal, and thickening of the right posterior optic nerve, optic chiasm, and right optic tracts. 3. There is also prominent enhancement and thickening of the meninges bilaterally. As described prev iously, findings are nonspecific but an inflammatory or infectious process should be considered. One consideration include sarcoidosis. Electronically signed by: Domenico Mario MD 08/26/2017 9:50 AM EDT
--- NOTE | 2017-08-26 10:07 | HHI.PR ---
Subjective Remarks Follow-up visit progressive peripheral loss of vision, inflammatory versus encephalitis, HTN. She is seen and examined today. Family at the bedside. Patient very anxious about the procedure today. States that her field vision loss on the left side has continued is not worse but it still the same. Otherwise, she has been n.p.o., complains of being hungry. Denies pain and discomfort. Denies SOB/ dyspnea. Denies chest pain, palpitations, headaches, dizziness. Denies fevers, chills, n/v/d. Denies dysuria. Objective Vitals Vital Signs Date Time Temp Pulse Resp B/P (MAP) Pulse Ox O2 Delivery O2 Flow Rate FiO2 08/26/17 08:00 97.7 76 16 118/86 (97) 96 08/26/17 00:00 97.4 76 17 122/64 (83) 95 08/25/17 20:00 98.0 80 17 127/72 (90) 95 08/25/17 16:40 97.5 79 18 118/72 (87) 95 08/25/17 12:43 98.1 85 17 101/64 (76) 93 I/O 08/25/17 08/25/17 08/25/17 08/26/17 08/26/17 08/26/17 06:59 14:59 22:59 06:59 14:59 22:59 Intake Total 480 ml 800 ml 0 ml Balance 480 ml 800 ml 0 ml Intake Oral 480 ml 800 ml 0 ml # Voids 2 3 2 # Bowel Movements 0 0 Result Diagram: 08/24/17 0511 08/24/17 0511 Imaging Last Impressions Brain MRI 08/26/17 0000 Signed Impressions: CONCLUSION: 1. There is persistent abnormal signal within the anterior right temporal lobe , right thalamus, left parietal mid convexity, and left roslyn. 2. However, there is new and/or increased enhancement, abnormal signal, and th ickening of the right posterior optic nerve, optic chiasm, and right optic trac ts. 3. There is also prominent enhancement and thickening of the meninges bilatera lly. As described previously, findings are nonspecific but an inflammatory or i nfectious process should be considered. One consideration include sarcoidosis. Chest X-Ray 08/25/17 0000 Signed Impressions: CONCLUSION: Mild basilar atelectasis. No effusion or pneumothorax. Head/Brain Mag Res Venography 08/23/17 Signed Impressions: CONCLUSION: 1. No findings to indicate venous sinus thrombosis identified. Lumbar Puncture Fluoroscopy 08/18/17 Signed Impressions: CONCLUSION: 1. Uncomplicated fluoroscopically guided lumbar puncture. Thoracic Spine MRI 08/17/17 Signed Impressions: CONCLUSION: 1. Spinal cord has a normal appearance. There are no findings to indicate mult iple sclerosis involvement of the thoracic spinal cord. 2. Mild degenerative disc disease at T11-T12. No canal stenosis or neural fora chelsie narrowing is present. Head Magnetic Resonance Angiography 08/16/17 Signed Impressions: CONCLUSION: No intracranial arterial vascular abnormality is identified. Cervical Spine MRI 08/16/17 Signed Impressions: CONCLUSION: 1. No cord signal abnormalities to suggest multiple sclerosis. 2. Degenerative disc disease most severe at C5-6-7 where there is mild impress ion on the anterior surface of the cord. Slight reversal of normal cervical nohemy dosis. Head CT 08/15/17 Signed Impressions: CONCLUSION: 1. No acute intracranial abnormalities. Objective Remarks GENERAL: This is a well-nourished, well-developed patient, in no apparent distress. SKIN: Warm and dry. HEENT: Normocephalic. Pupils equal round and reactive. Left peripheral vision field loss both eyes. Nose without bleeding. Airway patent. NECK: Trachea midline. No JVD. Supple. CARDIOVASCULAR: Regular rate and rhythm without murmurs, gallops, or rubs. RESPIRATORY: Clear to auscultation. Breath sounds equal bilaterally. No wheezes , rales, or rhonchi. GASTROINTESTINAL: Abdomen soft, non-tender, nondistended. Bowel Sounds normoactive x4. MUSCULOSKELETAL: Extremities without clubbing, cyanosis, or edema. NEUROLOGICAL: Awake and alert. Oriented to time, place, person. Moves all extremities. Normal speech. A/P Problem List: (1) Vision loss ICD Code: H54.7 - Unspecified visual loss Status: Acute (2) Hypokalemia ICD Code: E87.6 - Hypokalemia (3) HTN (hypertension) ICD Code: I10 - Essential (primary) hypertension Status: Chronic Assessment and Plan 62-year-old female admitted secondary to peripheral vision loss Progressive peripheral vision loss, differential diagnosis of the demyelination , inflammatory versus encephalitis; stroke has been ruled out Homonymous bilateral field defects, left side Patient states symptom has not improved nor worsened -Head CT reviewed, no acute findings -Brain MRI with multifocal areas of abnormal edema; uncertain etiology, concerning for an infectious vs inflammatory process (pituitary normal). -head MRA unremarkable neg but Thoracic spine w no finding suggestive of MS. -Neurology consulted, appreciate Dr. Lemus's recommendations. -Repeat MRI of the brain completed 08/21. The inversion recovery images demonstrate scattered areas of abnormal T2 signal involving the anterior aspect of the right temporal lobe, the hippocampal gyri on the right, the pulvinar of the thalmus on the right and a small area of abnormal signal within the anterior aspect of the right thalamus. Posteriorly on the left there is a sizable area of subtle increased T2 signal involving the posterior parietal and occipital cortex. There is no corresponding abnormal signal within these areas on the diffusion restricted images. Postcontrast imaging is provided. There is a single subtle area of contrast enhancement in the anterior aspect of the thalamus on the right. No other areas of abnormal contrast enhancement are identified. There is no evidence of hemorrhage within this. The overall distribution of this is not typical for MS. The examination would raise concern for a viral encephalitis. A herpetic encephalitis could be a consideration. The postcontrast imaging also demonstrates an abnormal appearance of the superior sagittal and proximal transverse sinus. These findings could be related to venous sinus thrombosis as well. -S/p LP, CSF studies no growth to date on Gram stain -Completed day 5 of high dose IV solu-medrol. -HIV non reactive, RPR non reactive. Lyme antibodies, anti-NMO antibodies, pathology pending, MS panel currently pending -PT/ OT evaluation, no PT needed at discharge -Continue statin -ID also following. Continue on empiric IV rocephin and dc acyclovir due to HSV negative -Ophthalmology, Dr. Nelson consulted, appreciate input and recommendations. -Repeat MRI done today. For brain biopsy temporal lobe by Dr. Terrell Hypertension -Continue with Coreg, Cozaar and HCTZ. Will continue to monitor. Hypokalemia -Repleted -Within normal DVT prophylaxis: SCDs Discharge Planning Plan to DC home when clinically improved. Plan for biopsy today. Problem Qualifiers (1) HTN (hypertension): Qualified Codes: I10 - Essential (primary) hypertension Erna Joseph 26, 2018 10:07 am
[2017-08-26 12:00] VITALS: BP 122/70; PULSE 80; RESP 16; TEMP 97.8; O2SAT 95
[2017-08-26] MEDS ORDERED: ROCURONIUM INJ 50 MG/5 ML SYRINGE IV PUSH ONE (12:00)
[2017-08-26] MEDS ORDERED: ePHEDrine/NS 25 MG/5 ML SYRINGE IV ONE (12:00)
[2017-08-26] MEDS ORDERED: PROPOFOL 200 MG/20 ML AMP IV ONE (12:00)
[2017-08-26] MEDS ORDERED: PHENYLEPH/NS 1000 MCG/10 ML SYR IV ONE (12:00)
[2017-08-26] MEDS ORDERED: NEOSTIGMINE 5 MG/5 ML SYRINGE IV PUSH ONE (12:00)
[2017-08-26] MEDS ORDERED: LACTATED RINGER'S 1000 ML INJ 2,000 ML IV ONE (12:00)
[2017-08-26] MEDS ORDERED: GLYCOPYRROLATE 1 MG/5 ML SYRINGE IV PUSH ONE (12:00)
[2017-08-26] MEDS ORDERED: ONDANSETRON HCL 4 MG/2 ML VIAL IV ONE (12:00)
[2017-08-26] MEDS ORDERED: ESMOLOL HCL 100 MG/10 ML VIAL IV ONE (12:00)
[2017-08-26] MEDS ORDERED: LIDOCAINE HCL 1% PF 5 ML SYRINGE OTHER ONE (12:00)
[2017-08-26] MEDS ORDERED: SODIUM CHLOR 0.9% 250 ML INJ 250 ML IV ONE (12:00)
[2017-08-26] MEDS ORDERED: DEXAMETHASONE SOD PHOS 4 MG/ML VIAL IV ONE (12:00)
[2017-08-26] MEDS ORDERED: PHENYLEPHRINE HCL 10 MG/ML VIAL IV ONE (12:00)
[2017-08-26] MEDS ORDERED: MIDAZOLAM HCL 2 MG/2 ML VIAL ONE (14:03)
[2017-08-26] MEDS ORDERED: NS + KCL 20 MEQ INJ 1,000 ML IV SCH ×2 (15:27→16:45)
[2017-08-26] MEDS ORDERED: CALCIUM GLUCONATE 10% 1 GM/10 ML VIAL IV PRN ×2 (15:30→16:45)
[2017-08-26] MEDS ORDERED: BISACODYL 10 MG SUPP RECTAL PRN (15:30)
[2017-08-26] MEDS ORDERED: POTASSIUM CHLOR 20 MEQ PREMIX 100 ML IV PRN ×2 (15:30→16:45)
[2017-08-26] MEDS ORDERED: ACETAMINOPHEN/HYDROcodone 325 MG/10 MG TAB PO PRN ×3 (15:30→16:45)
[2017-08-26] MEDS ORDERED: MORPHINE SULFATE 4 MG/ML INJ IV PUSH PRN ×3 (15:30→16:45)
[2017-08-26] MEDS ORDERED: ACETAMINOPHEN 325 MG TAB PO PRN ×2 (15:30→16:45)
[2017-08-26] MEDS ORDERED: MAGNESIUM SULFATE INJ 4 GM in SODIUM CHLORIDE 0.9% INJ 100 ML IV PRN ×2 (15:30→16:45)
[2017-08-26] MEDS ORDERED: levETIRAcetam 500 MG/5 ML VIAL IV ONE (15:31)
[2017-08-26] MEDS ORDERED: ONDANSETRON ODT 4 MG TAB PO PRN (16:15)
[2017-08-26] MEDS ORDERED: ONDANSETRON HCL 4 MG/2 ML VIAL IV PUSH PRN (16:45)
[2017-08-26] MEDS ORDERED: BISACODYL 10 MG SUPP PR PRN (16:45)
--- NOTE | 2017-08-26 16:45 | PD.OP ---
Operative Report Date of Surgery: Aug 26, 2017 Preoperative Diagnosis: Multifocal brain lesions Postoperative Diagnosis: Multifocal brain lesions Procedure: Stereotactic biopsy of right temporal lobe lesion Anesthesia: general Surgeon: Gallito Terrell Electrical And Electronic Assembler(s): Mallorie Zhao Operation and Findings: INDICATIONS FOR THE PROCEDURE Ms Amor is a 62 year-old female who presented with visual loss and was found to have multifocal supratentorial brain lesions of abnormal signal intensity. The lesions had abnormal signal intensity and and characteristics consistent with a possible neoplastic, inflammatory, or infectious process. A stereotactic biopsy of the lesions was indicated. The [id number] details of the procedure, its indications, alternatives, risks and potential complications were fully discussed with the patient. The patient fully understood. All questions were answered. No guarantees were given. The patient voiced requesting the procedure and provided informed consents. The patient was offered the alternative of not having aggressive management. DETAILS OF THE SURGICAL PROCEDURE Preoperative planning Prior to the surgery the patient underwent an MRI of the brain according to the stereotactic protocol. The information from the MRI scan was transferred to the operating room via the hospital network and the preoperative planning of the lesion was made. A michell was made at the patients operative site according to the hospital policy. Surgical positioning The patient was brought to the operating room. After induction of general anesthesia endotracheal intubation was performed. A Watts catheter, bilateral MARIEL hose, and sequential compression devices were placed and kept throughout the procedure. The patient was positioned supine on a 3080 table over a soft mattress. All pressure points were carefully padded with an egg crate mattress. The eyes were tapped shut after ointment was applied by the anesthesiologist to prevent corneal abrasion. A Aren hugger was placed over the exposed lower body to maintain control of the core body temperature. The head was held in rigid fixation using the [place] header machine operator. Intraoperative registration The rigid body was attached to the [place] headholder. Intraoperative registration was then performed using the [employer]. The lesion was located in the three planes, sagittal, axial and coronal. An entry point was selected in the scalp. Surgical Approach and stereotactic biopsy The skin was prepped and draped in the usual sterile fashion. A linear incision in the site selected by the planning was outlined. The area was infiltrated with 1% lidocaine with epinephrine 1:100,000 dilution. A skin incision was made with a #10 blade. Small subgaleal bleeders were controlled with a bipolar a small self-retaining retractor was placed in the incision. The fascia and muscle were incised with a Bovie and retracted at each side. The Midas Danial was brought into the field and a bur hole was made with an AM-8 drill bit. The duramatter was coagulated with a bipolar and opening increased for pressure and a very small corticotomy performed. At this point of the procedure the stereotactic biopsy arm was brought into the field and secured to the header machine operator. The nurse private duty was brought into the field, and the trajectory on the biopsy arm was created following the previously selected trajectory. Then , a stereotactic needle was carefully inserted into the brain at the center of the lesion and by gentle aspiration two initial biopsies were obtained, one of which was sent to the lab for frozen section, while the second kept for permanent histological analysis. Meanwhile, four more additional specimens were obtained for permanent histologic analysis. 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 The biopsy needle was carefully removed and the stereotactic device was removed. The incision was irrigated with a large amount of saline. A piece of Gelfoam was placed over the surface of the brain and a bur hole cover was placed. The incision was closed in layers. 3-0 Vicryl with interrupted sutures were used to close the fascial layers and galea. The skin was closed with yessi. A sterile dressing was applied. At the end of the procedure the sponge, needle and instrument counts were all correct. Estimated blood loss was minimal. No blood transfusion was given. The patient received preoperative prophylactic antibiotics. No intraoperative complications occurred. The patient was transferred to the recovery room in stable condition. Gallito Terrell MD Aug 26, 2017 16:45
[2017-08-26] MEDS ORDERED: levETIRAcetam INJ 500 MG in SODIUM CHLORIDE 0.9% INJ 100 ML IV SCH (17:00)
[2017-08-26] MEDS: MORPHINE SULFATE 4 MG/ML INJ IV PUSH PRN ×2 (19:26→22:51)
[2017-08-26] MEDS: ACETAMINOPHEN/HYDROcodone 325 MG/10 MG TAB PO PRN (19:53)
[2017-08-26 20:40] VITALS: BP 115/69; PULSE 82; RESP 20; TEMP 98.4; O2SAT 91
[2017-08-26] MEDS ORDERED: DOCUSATE SODIUM 100 MG CAP PO SCH (21:00)
[2017-08-26] MEDS: DOCUSATE SODIUM 100 MG CAP PO SCH (21:00)
[2017-08-26] MEDS: CHLORHEXIDINE GLUCONATE 4% SOLN 120 ML BTL TOP SCH (21:00)
[2017-08-26] MEDS ORDERED: DO NOT ADM ANY ANTICOAGULANT DRUGS PRN (21:15)
[2017-08-26] MEDS ORDERED: CHLORHEXIDINE GLUCONATE 2 % 1 PACK (2 CLOTHS)(extra cloths) TOPICAL PRN (21:45)
[2017-08-26 22:00] VITALS: PULSE 81
[2017-08-26] MEDS: ATORVASTATIN 20 MG TAB PO SCH (22:52)
[2017-08-26] MEDS: ceFAZolin 2 GM PREMIX 50 ML IV SCH (22:53)
[2017-08-27] VITALS: BP 117/76; PULSE 82; RESP 18; TEMP 98.2; O2SAT 91
[2017-08-27 02:00] VITALS: PULSE 78
[2017-08-27] MEDS ORDERED: levETIRAcetam INJ 500 MG in SODIUM CHLORIDE 0.9% INJ 100 ML IV SCH (03:00)
[2017-08-27 04:00] VITALS: BP 114/69; PULSE 84; RESP 15; TEMP 98.1; O2SAT 82
[2017-08-27] MEDS ORDERED: CHLORHEXIDINE GLUCONATE 2 % 1 PACK (2 CLOTHS)(taper/protocol) TOPICAL SCH (04:00)
--- NOTE | 2017-08-27 04:35 | PD.CONS ---
[facility] Service Critical Care Medicine Consult Requested By Dr. Terrell Reason for Consult Critical care management s/p brain biopsy. Primary Care Physician Tonya Howard M.D. History of Present Illness 62 yo female admitted to [facility] 08/15 after being sent by real estate services administrator due to L hemianopsia in setting of normal fundoscopic exam. She states symptoms have been going on about 3 weeks now. No headache, fever, weakness, sensory changes. She states her symtpoms are isolated to her visual changes. MRI showed multifocal edema with appearance inconsistent with ischemia in right temporal lobe, right thalamus, left parietal region, and left roslyn. She has undergone LP which was inconclusive for malignancy. She has undergone brain biopsy. She has slight headache now post-biopsy. She denies other complaint, wants to eat breakfast and go home. Review of Systems Constitutional: DENIES: Fever Ears, nose, mouth, throat: DENIES: Hearing loss Cardiovascular: DENIES: Chest pain Gastrointestinal: DENIES: Abdominal pain, Nausea, Vomiting Musculoskeletal: DENIES: Joint pain Integumentary: DENIES: Rash Hematologic/lymphatic: DENIES: Lymphadenopathy Immunologic/allergic: DENIES: Urticaria Past Family Social History Allergies: Coded Allergies: No Known Allergies (Verified Allergy, Severe, 08/26/05) Past Medical History HTN HLD GERD Past Surgical History Dental surgery 6 months ago (bridge) Reported Medications Lipitor HCTZ Coreg Irbesartan Prilosec Premarin Family History Sister with RA, Lupus, breast cancer and lung cancer. She says she has a family member with IHSS but pt's evaluation was negative. Social History Smokes a few cigarettes a day while driving and smokes when she has some drinks Drinks occasionally Works at [employer] Physical Exam Vital Signs Vital Signs Date Time Temp Pulse Resp B/P (MAP) Pulse Ox O2 Delivery O2 Flow Rate FiO2 08/27/17 00:00 98.2 82 18 117/76 (90) 91 08/27/17 00:00 82 08/26/17 22:00 81 08/26/17 20:40 98.4 82 20 115/69 (84) 91 08/26/17 20:30 77 18 119/69 (86) 93 Nasal Cannula 4 08/26/17 19:30 81 18 101/68 (79) 93 Nasal Cannula 4 08/26/17 18:30 78 18 110/67 (81) 93 Nasal Cannula 4 08/26/17 18:15 77 18 109/64 (79) 92 Nasal Cannula 4 08/26/17 18:00 78 18 107/59 (75) 92 Nasal Cannula 4 08/26/17 17:45 83 18 109/57 (74) 92 Nasal Cannula 4 08/26/17 17:30 79 18 86/53 (64) 89 Nasal Cannula 4 08/26/17 17:12 97.5 79 18 89/52 (64) 90 Nasal Cannula 4 08/26/17 12:00 97.8 80 16 122/70 (87) 95 08/26/17 08:00 97.7 76 16 118/86 (97) 96 Physical Exam GENERAL: Well-nourished, well-developed patient, pleasant and talkative, sitting up in bed. SKIN: Warm and dry. No rash. Dressing in place over right scalp. HEAD: Atraumatic. Normocephalic. EYES: Pupils equal and round, 2 mm and reactive. No scleral icterus. No injection or drainage. ENT: No nasal bleeding or discharge. Mucous membranes pink and moist. NECK: Trachea midline. No JVD. CARDIOVASCULAR: Regular rate and rhythm. No murmurs rubs or gallops. RESPIRATORY: No accessory muscle use. Clear to auscultation. Breath sounds equal bilaterally. GASTROINTESTINAL: Abdomen soft, non-tender, nondistended. Hepatic and splenic margins not palpable. MUSCULOSKELETAL: Extremities without clubbing, cyanosis, or edema. No obvious deformities. NEUROLOGICAL: Awake and alert. Pupils reactive. Left homonymous hemianopsia noted on visual field testing. Five out of 5 muscle strength in the arms and legs, no pronator drift. Normal speech. Laboratory Date/Time Source Procedure Growth Status 08/18/17 08:46 Cerebral Spinal Fluid Lumbar Puncture Gram Stain - Final Complete 08/18/17 08:46 Cerebral Spinal Fluid Lumbar Puncture CSF Culture - Final NO GROWTH IN 72 HOURS Complete Result Diagram: 08/24/17 0511 08/24/17 0511 Assessment and Plan Problem List: (1) HLD (hyperlipidemia) ICD Code: E78.5 - Hyperlipidemia, unspecified Status: Chronic (2) Homonymous bilateral field defects, left side ICD Code: H53.462 - Homonymous bilateral field defects, left side Status: Acute (3) HTN (hypertension) ICD Code: I10 - Essential (primary) hypertension Status: Chronic (4) Tobacco use ICD Code: Z72.0 - Tobacco use Status: Chronic (5) Status post stereotactic brain biopsy ICD Code: Z98.890 - Other specified postprocedural states Status: Acute Assessment and Plan NEURO: Multi-focal areas of cerebral edema of unclear etiology. Status post brain biopsy Follow-up pathology. Discussed with Dr. Lemus who states patient should follow-up with him and with Dr. Terrell at the end of next week. RESP: On room air CV: Hypertension HLD Continue antihypertensives and statin. GI: Regular diet FEN/RENAL: Voiding ID: Lumbar puncture negative for bacterial meningitis, HSV, crypto etc. PROPH: on protonix for h/o GERD. SCD for DVT prophylaxis. ACCESS: PIV Level 2 Consult Problem Qualifiers (1) HTN (hypertension): Qualified Codes: I10 - Essential (primary) hypertension Dominique Del Rosario MD Aug 27, 2017 04:35
[2017-08-27 06:00] VITALS: PULSE 81
[2017-08-27] MEDS: ceFAZolin 2 GM PREMIX 50 ML IV SCH (07:00)
[2017-08-27 07:02] LABS: AUTOMATED NEUTROPHIL # 16.1 TH/MM3 (1.8-7.7); BASOPHIL % 0.1 % (0.0-2.0); HEMATOCRIT 39.3 % (35.0-46.0); HEMOGLOBIN 13.1 GM/DL (11.6-15.3); LYMPH % 6.4 % (9.0-44.0); LYMPHOCYTE # 1.2 TH/MM3 (1.0-4.8); MEAN CELL VOLUME 89.6 FL (80.0-100.0); MEAN CORPUSCULAR HEMOGLOBIN 29.9 PG (27.0-34.0); MEAN CORPUSCULAR HGB CONC 33.3 % (32.0-36.0); MEAN PLATELET VOLUME 7.6 FL (7.0-11.0); MONO % 3.6 % (0.0-8.0); MONOCYTE # 0.6 TH/MM3 (0-0.9); NEUT % 89.9 % (16.0-70.0); PLATELET COUNT 218 TH/MM3 (150-450); RED BLOOD COUNT 4.38 MIL/MM3 (4.00-5.30); RED CELL DISTRIBUTION WIDTH 13.8 % (11.6-17.2); WHITE BLOOD COUNT 17.9 TH/MM3 (4.0-11.0)
[2017-08-27 07:11] LABS: BICARBONATE 23.5 MEQ/L (21.0-32.0); CALCIUM 8.2 MG/DL (8.5-10.1); CREATININE 0.57 MG/DL (0.50-1.00)
--- NOTE | 2017-08-27 07:56 | HHI.PR ---
Review/Management Diagnosis/Plan: (1) Vision loss ICD Codes: H54.7 - Unspecified visual loss Status: Acute Plan: MRI brain scan reviewed Repeat MRI brain with contrast reviewed. Right temporal lobe lesion and right thalamic lesion of the most prominent no contrast-enhancement no diffusion restriction. Considerations would include inflammatory process versus neoplastic. Encephalitis panel thus far negative clinically does not appear to have encephalitis either. iv steroid course completed Risk factors include chronic hypertension, tobacco use MRI C-spine and T-spine did not show any cord lesion Anti-and MO antibodies negative RPR negative, HIV negative pt anxious to go home Recommendations neuro exam stable appreciate neurosurgery appreciate ccm s/p rt temporal lobe biopsy- results pending csf pathology: lymphocytes ok for floor; can be dc'd and f/u outpatient from neurological standpoint Tobacco cessation Follow exam (2) HTN (hypertension) ICD Codes: I10 - Essential (primary) hypertension Status: Chronic Plan: Goal less than 120/80 On antihypertensives (3) Tobacco use ICD Codes: Z72.0 - Tobacco use Status: Chronic Plan: Cessation discussed with the patient Subjective Subjective Comments No acute events reported No headache No chest pain No dyspnea Active Medications Current Medications Medications (Trade) Dose Ordered Sig/Madeleine Route Start Time Stop Time Status Last Admin (NS Flush) 2 ml BID IV FLUSH 08/16/17 09:00 08/26/17 21:00 (NS Flush) 2 ml UNSCH PRN IV FLUSH 08/15/17 23:45 08/22/17 05:09 (Vasotec Inj) 1.25 mg Q4H PRN IV PUSH 08/15/17 23:45 (Milk Of Magnesia Liq) 30 ml Q12H PRN PO 08/16/17 00:15 (Senokot) 17.2 mg Q12H PRN PO 08/16/17 00:15 08/22/17 08:30 (Lactulose Liq) 30 ml DAILY PRN PO 08/16/17 00:15 (Lipitor) 20 mg HS PO 08/16/17 00:30 08/26/17 22:52 (Lactinex) 1 tab TID PO 08/16/17 18:00 08/26/17 08:06 (Xanax) 0.5 mg Q4H PRN PO 08/21/17 19:00 08/25/17 22:40 (Coreg) 12.5 mg BID PO 08/22/17 09:00 08/26/17 22:52 (Cozaar) 100 mg DAILY PO 08/22/17 09:00 08/26/17 08:06 (Hydrodiuril) 12.5 mg DAILY PO 08/22/17 09:00 08/26/17 08:07 (Premarin) 1.25 mg DAILY PO 08/23/17 09:00 08/26/17 08:06 (Hibiclens 4% Top Soln) 1 applic HS TOP 08/25/17 21:00 08/27/17 21:01 08/26/17 21:00 Lactated Ringer's 1,000 ml @ 30 mls/hr Q24H PRN IV 08/26/17 02:15 08/29/17 02:14 Sodium Chloride 500 ml @ 30 mls/hr [id number] PRN IV 08/26/17 02:15 08/29/17 02:14 (Betadine 5% Antisepsis Kit) 1 applic FALSEWORK BUILDER PRN EACH NARE 08/26/17 02:15 08/29/17 02:14 (Chlorhexidine 2% Cloth) 3 pack FALSEWORK BUILDER PRN TOPICAL 08/26/17 02:15 08/29/17 02:14 Potassium Chloride/Sodium Chloride 1,000 ml @ 100 mls/hr Q10H IV 08/26/17 15:27 08/26/17 18:00 Cefazolin Sodium/ Dextrose 50 ml @ 100 mls/hr Q8H IV 08/26/17 23:00 08/27/17 15:29 08/26/17 22:53 (Dulcolax Supp) 10 mg DAILY PRN RECTAL 08/26/17 15:30 (Colace) 100 mg BID PO 08/26/17 21:00 (Protonix Inj) 40 mg DAILY IVP 08/27/17 09:00 (Zofran Odt) 4 mg Q6H PRN PO 08/26/17 16:15 (Calcium Gluconate Inj) 1 gm UNSCH PRN IV 08/26/17 15:30 Potassium Chloride 100 ml @ 50 mls/hr UNSCH PRN IV 08/26/17 15:30 Magnesium Sulfate 4 gm/Sodium Chloride 108 ml @ 108 mls/hr UNSCH PRN IV 08/26/17 15:30 ([place] 10-325 Mg) 1 tab Q4H PRN PO 08/26/17 15:30 08/26/17 19:53 ([place] 10-325 Mg) 2 tab Q4H PRN PO 08/26/17 15:30 08/27/17 01:24 (Morphine Inj) 2 mg Q2H PRN IV PUSH 08/26/17 15:30 (Morphine Inj) 4 mg Q2H PRN IV PUSH 08/26/17 15:30 08/26/17 22:51 (Tylenol) 650 mg Q4H PRN PO 08/26/17 15:30 Levetriacetam 500 mg/Sodium Chloride 105 ml @ 400 mls/hr Q12H IV 08/27/17 03:00 08/27/17 03:08 ([facility] [place] Nursing Information) ALL NURSING DEPARTME... UNSCH PRN .XX 08/26/17 21:15 08/27/17 21:14 ([facility] [place] Nursing Information) Patient in critical care unit? Ass... [id number] .XX 08/26/17 21:45 08/26/17 21:45 (Chlorhexidine 2% Cloth) 3 pack DAILY@04 TOPICAL 08/27/17 04:00 08/31/17 04:01 08/27/17 04:00 (Chlorhexidine 2% Cloth) 3 pack UNSCH PRN TOPICAL 08/26/17 21:45 08/31/17 21:31 Allergies Allergies Coded Allergies No Known Allergies (Verified Allergy, Severe, 08/26/05) Review of Systems All other ROS: ROS reviewed as documented in chart Exam I&O / VS Vital Signs Date Time Temp Pulse Resp B/P (MAP) Pulse Ox O2 Delivery O2 Flow Rate FiO2 08/27/17 06:00 81 08/27/17 04:00 84 08/27/17 04:00 98.1 84 15 114/69 (84) 82 08/27/17 02:00 78 08/27/17 00:00 98.2 82 18 117/76 (90) 91 08/27/17 00:00 82 08/26/17 22:00 81 08/26/17 20:40 98.4 82 20 115/69 (84) 91 08/26/17 20:30 77 18 119/69 (86) 93 Nasal Cannula 4 08/26/17 19:30 81 18 101/68 (79) 93 Nasal Cannula 4 08/26/17 18:30 78 18 110/67 (81) 93 Nasal Cannula 4 08/26/17 18:15 77 18 109/64 (79) 92 Nasal Cannula 4 08/26/17 18:00 78 18 107/59 (75) 92 Nasal Cannula 4 08/26/17 17:45 83 18 109/57 (74) 92 Nasal Cannula 4 08/26/17 17:30 79 18 86/53 (64) 89 Nasal Cannula 4 08/26/17 17:12 97.5 79 18 89/52 (64) 90 Nasal Cannula 4 08/26/17 12:00 97.8 80 16 122/70 (87) 95 08/26/17 08:00 97.7 76 16 118/86 (97) 96 General: Alert and Oriented, No acute distress Eye: PERRL, EOMI Respiratory: Non-labored respirations, BS equal, Symmetrical expansion, No chest wall tenderness Cardiology: Normal rate, No edema Musculoskeletal: ROM Neurologic: Alert, Oriented, Normal sensory, Normal motor Psychiatric: Cooperative, Appropriate mood & affect, Normal judgement, Non- suicidal Exam Comments alert oriented 3, pleasant , articulate speech extraocular movements intact left curvilinear homonymous hemianopsia no facial asymmetry tongue midline strength 5 out of 5 her lower limbs no pronator drift no dysmetria mild lower extremity hyperreflexia, Objective Micro and Labs Laboratory Tests Test 08/27/17 05:30 White Blood Count 17.9 Red Blood Count 4.38 Hemoglobin 13.1 Hematocrit 39.3 Mean Corpuscular Volume 89.6 Mean Corpuscular Hemoglobin 29.9 Mean Corpuscular Hemoglobin Concent 33.3 Red Cell Distribution Width 13.8 Platelet Count 218 Mean Platelet Volume 7.6 Neutrophils (%) (Auto) 89.9 Lymphocytes (%) (Auto) 6.4 Monocytes (%) (Auto) 3.6 Eosinophils (%) (Auto) 0.0 Basophils (%) (Auto) 0.1 Neutrophils # (Auto) 16.1 Lymphocytes # (Auto) 1.2 Monocytes # (Auto) 0.6 Eosinophils # (Auto) 0.0 Basophils # (Auto) 0.0 CBC Comment DIFF FINAL Differential Comment Blood Urea Nitrogen 19 Creatinine 0.57 Random Glucose 110 Calcium Level 8.2 Sodium Level 141 Potassium Level 4.2 Chloride Level 108 Carbon Dioxide Level 23.5 Anion Gap 10 Estimat Glomerular Filtration Rate 108 Date/Time Source Procedure Growth Status 08/18/17 08:46 Cerebral Spinal Fluid Lumbar Puncture Gram Stain - Final Complete 08/18/17 08:46 Cerebral Spinal Fluid Lumbar Puncture CSF Culture - Final NO GROWTH IN 72 HOURS Complete Problem Qualifiers (1) HTN (hypertension): Qualified Codes: I10 - Essential (primary) hypertension Lebron Lemus MD Aug 27, 2017 07:56
[2017-08-27] MEDS: LACTOBACILLUS ACIDOPHILUS TAB PO SCH (08:32)
[2017-08-27] MEDS: DOCUSATE SODIUM 100 MG CAP PO SCH (08:32)
[2017-08-27] MEDS: CARVEDILOL 12.5 MG TAB PO SCH (08:33)
[2017-08-27] MEDS: HYDROCHLOROTHIAZIDE 25 MG TAB PO SCH (08:33)
[2017-08-27] MEDS: MORPHINE SULFATE 4 MG/ML INJ IV PUSH PRN (08:34)
[2017-08-27] MEDS: SODIUM CHLORIDE 0.9% FLUSH 10 ML FLUSH IV FLUSH SCH (08:34)
[2017-08-27] MEDS ORDERED: PANTOPRAZOLE SODIUM 40 MG VIAL IVP SCH ×2 (09:00)
[2017-08-27] MEDS ORDERED: PANTOPRAZOLE SOD 40 MG DELAYED RELEASE TAB PO SCH ×2 (09:00)
--- NOTE | 2017-08-27 11:21 | HHI.DS ---
Discharge Summary Admission Date Aug 15, 2017 at 23:50 Discharge Date: Aug 27, 2017 Admitting Diagnosis (1) Vision loss ICD Code: H54.7 - Unspecified visual loss Status: Acute (2) Hypokalemia ICD Code: E87.6 - Hypokalemia Status: Resolved (3) HTN (hypertension) ICD Code: I10 - Essential (primary) hypertension Status: Chronic Procedures 08/26 stereotactic biopsy of temporal lobe lesion of brain with Dr. Terrell Brief History - From Admission This is a 70-year-old female with a PMH of HTN, Cholelithiasis and Tobacco Abuse who was referred to the ER by her Slubber Machine Operator for vision loss and concern for stroke. Pt states she works at [employer] and has had significant photophobia while at work for approx 1wk w/ intermittent floaters. Was seen by Slubber Machine Operator on Friday (4 days ago) w/ normal funduscopic exam. On Friday, states she noticed "blind spots", states she could see people when looking up, however when she looked down, she saw children she couldn't see when looking up. Was referred to a retinal specialist by her Slubber Machine Operator, now w/ peripheral field vision loss bilaterally and referred to ER for possible CVA. Denies previous h/o similar symptoms. Takes ASA 81mg qd in addition to Lipitor. On arrival, BP 161/100, HR 94, O2 sat 97% on RA, Afebrile. CBC unremarkable. Chemistry unremarkable except for K+ 3.0. INR 1.0. UA negative. CXR with no acute findings. CT Head negative. CBC/BMP: 08/27/17 0530 08/27/17 0530 Significant Findings Laboratory Tests Test 08/27/17 05:30 White Blood Count 17.9 TH/MM3 (4.0-11.0) Neutrophils (%) (Auto) 89.9 % (16.0-70.0) Lymphocytes (%) (Auto) 6.4 % (9.0-44.0) Neutrophils # (Auto) 16.1 TH/MM3 (1.8-7.7) Blood Urea Nitrogen 19 MG/DL (7-18) Random Glucose 110 MG/DL (74-106) Calcium Level 8.2 MG/DL (8.5-10.1) Chloride Level 108 MEQ/L (98-107) Imaging Last Impressions Brain MRI 08/26/17 Signed Impressions: CONCLUSION: 1. There is persistent abnormal signal within the anterior right temporal lobe , right thalamus, left parietal mid convexity, and left roslyn. 2. However, there is new and/or increased enhancement, abnormal signal, and th ickening of the right posterior optic nerve, optic chiasm, and right optic trac ts. 3. There is also prominent enhancement and thickening of the meninges bilatera lly. As described previously, findings are nonspecific but an inflammatory or i nfectious process should be considered. One consideration include sarcoidosis. Chest X-Ray 08/25/17 Signed Impressions: CONCLUSION: Mild basilar atelectasis. No effusion or pneumothorax. Head/Brain Mag Res Venography 08/23/17 Signed Impressions: CONCLUSION: 1. No findings to indicate venous sinus thrombosis identified. Lumbar Puncture Fluoroscopy 08/18/17 Signed Impressions: CONCLUSION: 1. Uncomplicated fluoroscopically guided lumbar puncture. Thoracic Spine MRI 08/17/17 Signed Impressions: CONCLUSION: 1. Spinal cord has a normal appearance. There are no findings to indicate mult iple sclerosis involvement of the thoracic spinal cord. 2. Mild degenerative disc disease at T11-T12. No canal stenosis or neural fora chelsie narrowing is present. Head Magnetic Resonance Angiography 08/16/17 Signed Impressions: CONCLUSION: No intracranial arterial vascular abnormality is identified. Cervical Spine MRI 08/16/17 Signed Impressions: CONCLUSION: 1. No cord signal abnormalities to suggest multiple sclerosis. 2. Degenerative disc disease most severe at C5-6-7 where there is mild impress ion on the anterior surface of the cord. Slight reversal of normal cervical nohemy dosis. Head CT 08/15/17 Signed Impressions: CONCLUSION: 1. No acute intracranial abnormalities. PE at Discharge GENERAL: This is a well-nourished, well-developed patient, in no apparent distress. SKIN: Warm and dry. HEENT: Normocephalic. Pupils equal round and reactive. Left peripheral vision field loss both eyes. Nose without bleeding. Airway patent. NECK: Trachea midline. No JVD. Supple. CARDIOVASCULAR: Regular rate and rhythm without murmurs, gallops, or rubs. RESPIRATORY: Clear to auscultation. Breath sounds equal bilaterally. No wheezes , rales, or rhonchi. GASTROINTESTINAL: Abdomen soft, non-tender, nondistended. Bowel Sounds normoactive x4. MUSCULOSKELETAL: Extremities without clubbing, cyanosis, or edema. NEUROLOGICAL: Awake and alert. Oriented to time, place, person. Moves all extremities. Normal speech. Pt update on day of discharge Doing well after surgery. Vision is not worse however has not improved. Wants to go home today. Did see Dr. Lemus this morning and was cleared to go home.. Hospital Course These are the medical issues addressed during this hospitalization: Progressive peripheral vision loss, differential diagnosis of the demyelination , inflammatory versus encephalitis; stroke has been ruled out during the hospitalization Homonymous bilateral field defects, left side Patient states symptom has not improved nor worsened during the hospitalization with both consult placed to lugger Dr. Nelson and neurology Dr. Keene -Head CT reviewed, no acute findings -Brain MRI with multifocal areas of abnormal edema; uncertain etiology, concerning for an infectious vs inflammatory process (pituitary normal). -head MRA unremarkable neg but Thoracic spine w no finding suggestive of MS. -Neurology consulted, appreciate Dr. Lemus's recommendations. -Repeat MRI of the brain completed 08/21. The inversion recovery images demonstrate scattered areas of abnormal T2 signal involving the anterior aspect of the right temporal lobe, the hippocampal gyri on the right, the pulvinar of the thalmus on the right and a small area of abnormal signal within the anterior aspect of the right thalamus. Posteriorly on the left there is a sizable area of subtle increased T2 signal involving the posterior parietal and occipital cortex. There is no corresponding abnormal signal within these areas on the diffusion restricted images. Postcontrast imaging is provided. There is a single subtle area of contrast enhancement in the anterior aspect of the thalamus on the right. No other areas of abnormal contrast enhancement are identified. There is no evidence of hemorrhage within this. The overall distribution of this is not typical for MS. The examination would raise concern for a viral encephalitis. A herpetic encephalitis could be a consideration. The postcontrast imaging also demonstrates an abnormal appearance of the superior sagittal and proximal transverse sinus. These findings could be related to venous sinus thrombosis as well. -S/p LP, CSF studies no growth to date on Gram stain -Completed day 5 of high dose IV solu-medrol. -HIV non reactive, RPR non reactive. Lyme antibodies, anti-NMO antibodies, pathology pending, MS panel currently pending -PT/ OT evaluation, no PT needed at discharge -Continue statin -ID also following. Continue on empiric IV rocephin and dc acyclovir due to HSV negative -Ophthalmology, Dr. Nelson consulted, appreciate input and recommendations. -Status post brain biopsy temporal lobe by Dr. Terrell on 08/26, chronic essential Hypertension, chronic essential -Continue with Coreg, Cozaar and HCTZ. Will continue to monitor. Hypokalemia -Repleted -Within normal DVT prophylaxis: SCDs At this time, patient has been cleared for discharge with continued outpatient workup and follow-up with Dr. Keene neurology. Patient has gained maximum benefit from hospitalization is ready to be discharged to home. Pt Condition on Discharge: Good Discharge Disposition: Discharge Home Discharge Time: <= 30 minutes Discharge Instructions DIET: Follow Instructions for: Heart Healthy Diet Activities to Avoid: Driving Follow up Referrals: Neurology - 2 Weeks with Lebron Lemus MD Ophthalmology - 2 Weeks with Danita Nelson MD PCP Follow-up - 1 Week Continued Medications: Alprazolam (Xanax) 0.25 Mg Tab 0.25 MG PO Q4H PRN for ANXIETY, TAB 0 Refills Atorvastatin (Lipitor) 20 Mg Tab 20 MG PO HS for Cholesterol Management, #30 TAB 0 Refills Carvedilol (Coreg) 12.5 Mg Tab 12.5 MG PO BID, #60 TAB 0 Refills Cholecalciferol (Vitamin D3) 2,000 Unit Cap 2000 UNITS PO DAILY for Nutritional Supplement, #1 BOTTLE 0 Refills Estrogens, Conjugated (Premarin) 1.25 Mg Tab 1.25 MG PO DAILY for Estrogen Supplements, #30 TAB 0 Refills Irbesartan-Hydrochlorothiazide (Avalide) 300-12.5 Mg Tab 1 TAB PO DAILY for Blood Pressure Management, #30 TAB 0 Refills Omeprazole Magnesium (Prilosec) 20 Mg Tab 20 MG PO DAILY Ritika Olvera MD Aug 27, 2017 11:21
[2017-08-27] MEDS: ACETAMINOPHEN/HYDROcodone 325 MG/10 MG TAB PO PRN (11:30)
== END 2017-08-27 13:15 | disposition home or self-care (01) | DRG 70 ==
LOC: NEPC 19:41 → NEDA 23:50 → HCIS 08-16 00:33 → N06B 08-17 04:14 → HIME 08-26 20:35 → HIMW 08-27 06:20
PROVIDERS: ADMIT Family Medicine; ATTEND Family Medicine
PROC: 009U3ZX Drainage of Spinal Canal, Percutaneous Approach, Diagnostic (ICD-10-PCS; 2017-08-18)
PROC: 00B73ZX Excision of Cerebral Hemisphere, Percutaneous Approach, Diagnostic (ICD-10-PCS; principal; 2017-08-26 14:12)
DX: G93.89 Other specified disorders of brain (principal); G93.6 Cerebral edema; H53.462 Homonymous bilateral field defects, left side; I48.91 Unspecified atrial fibrillation; E87.6 Hypokalemia; I10 Essential (primary) hypertension; F17.210 Nicotine dependence, cigarettes, uncomplicated; E78.5 Hyperlipidemia, unspecified; K21.9 Gastro-esophageal reflux disease without esophagitis; Z79.82 Long term (current) use of aspirin
CPT/HCPCS: 62270; 70450; 70544; 70546; 70551; 70552; 70553; 71045; 72156; 72157; 77003; 80048; 80053; 80061; 81001; 82040; 82042; 82164; 82607; 82784; 82945; 82948; 83036; 83520; 83735; 83873; 83916; 84100; 84157; 84181; 84439; 84443; 85025; 85610; 85652; 85730; 86038; 86140; 86403; 86430; 86592; 86618; 86780; 87070; 87205; 87389; 87476; 87529; 87536; 87801; 88108; 88307; 88333; 89051; 93005; 93306; 94150; A9579; C9113; G0475; J0131; J0133; J0690; J0696; J1100; J1580; J1815; J1953; J2250; J2270; J2370; J2405; J2710; J2920; J2930; J3010; J3480; J7030; J7050; J7120